=== PATIENT | female | born 1950 | race Caucasian/White ===

== ENCOUNTER 2016-07-24 20:23 | Inpatient (IN) | payer OTHER ==
[~2016-07-24] VITALS: Ht 154.9 cm; Wt 107.7 kg
[~2016-07-24 20:23] MED LIST: AMIT50TA3 PO; CLOT10TR2 MT; EFF/375 PO; GLIP-197 PO; LORA-741 PO; LYR50 PO; NYST100010 TD; PRLSR20 PO; QUET200T2 PO; SIMV20TA2 PO; SYMIN8045 INH; TORS20TA2 PO; WARF6TAB5 PO
[2016-07-24] MEDS ORDERED: OXYMETAZOLINE HCL 0.05% NA SPR 15 ML BTL ONE (20:55)
[2016-07-24] MEDS ORDERED: SODIUM CHLORIDE 0.9% 500ML 500 ML IV STA (22:14)
--- NOTE | 2016-07-24 22:40 | EMERGENCY ROOM VISIT NOTE ---
History Report prepared by Sonia: Monty Godinez Under the Supervision of: Dr. Jese Mcfadden M.D. First contact with patient: 22:12 Chief Complaint: NOSE BLEED (MINOR) Stated Complaint: NOSE BLEED, ON BLOOD THINNERS History of Present Illness The patient is a 66 year old female who presents to the Emergency Room with complaints of a persistent nosebleed beginning one day prior to arrival. She currently rates her discomfort as a 7/10 in severity. The patient states she had one nosebleed yesterday and two today. She notes her last nosebleed has lasted over two hours. The patient notes she is on the blood thinner, Jantoven. She states the nosebleed had been running down the back of her throat, with the right naris worse than the left. The patient notes she takes an 81 mg aspirin, as well. She denies vomiting. 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 A total of 10 systems reviewed and were otherwise negative. Past Medical & Surgical Medical Problems: (1) Asthma (2) Bronchitis (3) Diabetes (4) DVT (deep venous thrombosis) (5) Hypertension (6) Pneumonia (7) Pulmonary embolism Family History Cancer Diabetes mellitus Gallbladder disease Heart disease Hypertension Kidney disease Kidney stones Lung disease Social History Smoking Status: Never Smoker Alcohol Use: none Drug Use: none Marital Status: single Housing Status: lives alone Occupation Status: retired Current/Historical Medications Scheduled Amitriptyline HCl (Amitriptyline HCl), 100 MG PO HS Aspirin (Aspirin Ec), 81 MG PO DAILY Budesonide/Formoterol Fumarate (Symbicort 80/4.5 Inhaler), 2 PUFFS INH BID Calcium/Vitamin D (Os-Federico 500 Plus D), 1 TAB PO TID Carvedilol (Coreg), 12.5 MG PO BID Cyanocobalamin (Vitamin B12), 1,000 MCG PO DAILY Docusate Sodium (Docusate Sodium), 100 MG PO QID Ergocalciferol (Vitamin D Cap), 50,000 INTER.UNIT PO WK Fluvoxamine Maleate (Luvox), 100 MG PO BID Glipizide (Glipizide), 5 MG PO BID Magnesium Oxide (Mag-Ox), 400 MG PO QID Metformin HCl (Metformin HCl), 500 MG PO BIDM Omeprazole (Prilosec), 20 MG PO BID Potassium Chloride Microencaps (Potassium Chloride Er), 20 MEQ PO TID Pregabalin (Lyrica), 50 MG PO DAILY Quetiapine Fumarate (Seroquel), 600 MG PO HS Quetiapine Fumarate (Seroquel), 200 MG PO QAM Simvastatin (Simvastatin), 20 MG PO DAILY Thyroid (Nature-Throid), 65 MG PO DAILY Torsemide (Torsemide), 20 MG PO QAM Venlafaxine Hcl (Venlafaxine Extended Rel), 37.5 MG PO BID Warfarin Sod (Jantoven), 1 MG PO Q2D Warfarin Sod (Jantoven), 5 MG PO DAILY Scheduled PRN Lorazepam (Lorazepam), 0.5 MG PO TID PRN for Anxiety Oxycodone/Acetaminophen 10MG/325MG (Percocet 10MG/325MG), 1 TAB PO QID PRN for Pain [Proair HFA], 2 PUFFS INH UD PRN for SOB/Wheezing Allergies Coded Allergies: Erythromycin (Verified Adverse Reaction, Intermediate, N/V, 07/03/15) Physical Exam Vital Signs Date Time Temp Pulse Resp B/P Pulse Ox O2 Delivery O2 Flow Rate FiO2 07/24/16 23:42 116 22 110/64 95 Room Air 07/24/16 21:25 110 24 129/93 95 Room Air 07/24/16 20:27 36.9 120 20 110/71 94 Room Air Physical Exam GENERAL: Patient is in no acute distress. HEENT: Dried blood in the mouth and throat but no active bleeding. Nasal clip in place with some dried blood around the nose on the right. By exam, the left naris appears clear. There is a slight ooze in the area of the right naris and a clot noted along the anterior septum. NECK: No stridor, no adenopathy, no meningismus, trachea is midline. LUNGS: Clear to auscultation bilaterally, no wheeze, no rhonchi, breath sounds equal. HEART: Mildly tachycardic with a regular rhythm. No murmurs. ABDOMEN: Soft, nontender, bowel sounds positive, no hernias, no peritonitis. EXTREMITIES: No cyanosis or edema, full range of motion of all the joints without pain or difficulty, no signs for acute trauma. NEUROLOGIC: Oriented x 3, no acute motor or sensory deficits, no focal weakness. SKIN: No rash, no jaundice, no diaphoresis. Medical Decision & Procedures Laboratory Results Test 07/24/16 21:15 Total Bilirubin 0.2 mg/dl (0.2-1) Aspartate Amino Transf (AST/SGOT) 40 U/L (15-37) Alanine Aminotransferase (ALT/SGPT) 47 U/L (12-78) Alkaline Phosphatase 88 U/L (45-117) Total Protein 7.5 gm/dl (6.4-8.2) Albumin 3.8 gm/dl (3.4-5.0) Globulin 3.7 gm/dl (2.5-4.0) Albumin/Globulin Ratio 1.0 (0.9-2) Chemistry Specimen Hemolysis Laboratory results reviewed by me. Medications Administered Medications (Trade) Dose Ordered Sig/Natalie Route Start Time Stop Time Status Last Admin Dose Admin Oxymetazoline HCl 75 sprays 75 sprays STK-MED ONCE .ROUTE 07/24/16 20:55 07/24/16 20:56 DC 07/24/16 21:00 75 SPRAYS Sodium Chloride (Nss 500ml) 500 ml @ 999 mls/hr Q31M STAT IV 07/24/16 22:14 07/24/16 22:44 DC 07/24/16 22:47 999 MLS/HR Phytonadione (Mephyton Tab) 10 mg NOW STAT PO 07/24/16 23:27 07/24/16 23:28 DC 07/24/16 23:42 10 MG Cephalexin Monohydrate 500 mg 500 mg NOW STAT PO 07/24/16 23:35 07/24/16 23:36 DC 07/24/16 23:42 500 MG Sodium Chloride (Nss 1000ml) 1,000 ml @ 125 mls/hr Q8H STAT IV 07/24/16 23:35 07/25/16 01:37 DC 07/24/16 23:45 125 MLS/HR Procedure Anterior Nasal Packing Indication: Persistent epistaxis Verbal consent obtained. Risks and benefits were explained with the usual customary discussion. A time out was taken. Clots were removed with blowing her nose. The night naris had been prepped with Afrin earlier. An anterior 4.5 cm rhino pack was used. The patient tolerated this well. Hemostasis was achieved. No complications. ED Course 1013: The patient was evaluated in room C2B. A complete history and physical exam was performed. 2214: Ordered Sodium Chloride 500 ml @ 999 mls/hr IV. 2327: Ordered Mephyton Tab 10 mg PO. 2331: I spoke to PHAM Andrews (Hospitalist) about the patient's case, and he will follow the patient for further evaluation. 2333: Reevaluated the patient at this time, and she is not bleeding. I updated her on the treatment plan, and she verbalized complete understanding and agreement. 2335: Ordered Sodium Chloride 1,000 ml @ 125 mls/hr IV, Keflex Cap 500 mg PO. Medical Decision The differential diagnoses include but are not limited to: anterior or posterior epistaxis, anemia, coagulopathy. There is no leukocytosis or concerning anemia. The patient is over anticoagulated with an INR greater than 8. This certainly explains why it has been hard to control her epistaxis. No significant electrolyte abnormality, there are no findings to suggest hepatitis. The patient had already received Afrin sprays and nasal pressure via a nasal clip prior to my arrival in the room. When the clip was removed, the patient did attempt to rinse out her mouth and again the right side of her nose began to bleed. Pressure was applied. I spoke to the patient about options, we did place a 4.5 cm right Rhino pack and the balloon was inflated. The pack could not be completely inserted as I ran up against an obstruction, about 1 cm of the pack was still protruding from the nose. Despite the pack not being completely inserted, the patient's epistaxis seemed to resolve. The patient felt uncomfortable with the pack in place but she was able to tolerate its positioning. The patient was given oral vitamin K, she received IV saline. She was given oral Keflex to prevent any sinusitis while the pack was in place. Given the high INR value, given her difficult to control bleeding, admission/ observation was warranted. I spoke to case management, the network solutions architect hospitalist was consulted. Consults Time Called: 2328 Consulting Physician: PHAM Andrews (Hospitalist) Returned Call: [phone] I spoke to PHAM Andrews (Hospitalist) about the patient's case, and he will follow the patient for further evaluation. Impression Primary Impression: Right-sided epistaxis Additional Impression: Supratherapeutic INR Scribe Attestation The scribe's documentation has been prepared under my direction and personally reviewed by me in its entirety. I confirm that the note above accurately reflects all work, treatment, procedures, and medical decision making performed by me. Departure Information Dispostion Being Evaluated By Hospitalist (PHAM Andrews (Hospitalist)) Referrals Noni Allan M.D. (PCP) Problem Qualifiers
[2016-07-24] MEDS ORDERED: POTA20TA13 PO (22:51)
[2016-07-24] MEDS ORDERED: GLC5 PO (22:52)
[2016-07-24] MEDS ORDERED: ATV5X PO (22:52)
[2016-07-24] MEDS ORDERED: OMEP20CA9 PO (22:52)
[2016-07-24] MEDS ORDERED: LYR/50 PO (22:52)
[2016-07-24] MEDS ORDERED: WARF1TAB6 PO (22:52)
[2016-07-24] MEDS ORDERED: Proair HFA INH (22:52)
[2016-07-24] MEDS ORDERED: SIMV-151 PO (22:52)
[2016-07-24] MEDS ORDERED: GLC500 PO (22:52)
[2016-07-24] MEDS ORDERED: VENL37.593 PO (22:52)
[2016-07-24] MEDS ORDERED: AMT100 PO (22:52)
[2016-07-24] MEDS ORDERED: WARF5TAB7 PO (22:52)
[2016-07-24] MEDS ORDERED: SYMIN/8045 INH (22:52)
[2016-07-24] MEDS ORDERED: QUET1TAB10 PO ×2 (22:52)
[2016-07-24] MEDS ORDERED: CARV12.52 PO (22:54)
[2016-07-24] MEDS ORDERED: DMD20 PO (22:54)
[2016-07-24 22:55] LABS: HEMATOCRIT 39.2 % (37-47); MEAN CELL VOLUME 93.3 fL (80-100); MEAN CORPUSCULAR HEMOGLOBIN 31.9 pg (25-34); MEAN CORPUSCULAR HGB CONC 34.2 g/dl (32-36); MEAN PLATELET VOLUME 11.3 fL (7.4-10.4); PLATELET COUNT 186 K/uL (130-400); WHITE BLOOD COUNT 5.91 K/uL (4.8-10.8)
[2016-07-24] MEDS ORDERED: OXYC-106 PO (22:57)
[2016-07-24] MEDS ORDERED: CYAN100020 PO (22:58)
[2016-07-24] MEDS ORDERED: ASPI81TA28 PO (23:00)
[2016-07-24] MEDS ORDERED: FLUV100T12 PO (23:02)
[2016-07-24] MEDS ORDERED: DOCU100C31 PO (23:05)
[2016-07-24] MEDS ORDERED: MAGN400T6 PO (23:06)
[2016-07-24] MEDS ORDERED: THYR65TA11 PO (23:06)
[2016-07-24] MEDS ORDERED: CALC500C70 PO (23:08)
[2016-07-24] MEDS ORDERED: ERGO1CAP35 PO (23:10)
[2016-07-24 23:16] LABS: PARTIAL THROMBOPLASTIN RATIO 2.6; PROTHROMBIN TIME (PATIENT) > 100.0 SECONDS (9.0-12.0)
[2016-07-24 23:25] LABS: INR > 8.0 (0.9-1.1)
[2016-07-24] MEDS ORDERED: PHYTONADIONE 5 MG TAB PO STA (23:27)
[2016-07-24] MEDS ORDERED: SODIUM CHLORIDE 0.9% 1000ML 1,000 ML IV STA (23:35)
[2016-07-24] MEDS ORDERED: CEPHALEXIN MONOHYDRATE 250 MG CAP PO STA (23:35)
[2016-07-25] VITALS (7 sets, daily range): BP systolic 97–154; BP diastolic 64–92; PULSE 87–113; TEMP 36.5–36.9; O2SAT 92–97; Ht 154.9 cm; Wt 107.7 kg
[2016-07-25 00:55] LABS: ALKALINE PHOSPHATASE 88 U/L (45-117); ALT/SGPT 47 U/L (12-78); AST/SGOT 40 U/L (15-37); BLOOD UREA NITROGEN 23 mg/dl (7-18); BUN/CREATININE RATIO 17.4 (10-20); CALCIUM 9.5 mg/dl (8.5-10.1); CARBON DIOXIDE 28 mmol/L (21-32); CHLORIDE 103 mmol/L (98-107); GLUCOSE 186 mg/dl (70-99); POTASSIUM 4.3 mmol/L (3.5-5.1); SODIUM 142 mmol/L (136-145)
[2016-07-25] MEDS ORDERED: CARVEDILOL 12.5 MG TAB PO ONE (01:14)
[2016-07-25] MEDS ORDERED: FLUVOXAMINE MALEATE 50 MG TAB PO ONE (01:14)
[2016-07-25] MEDS ORDERED: AMITRIPTYLINE HCL 100 MG TAB PO ONE (01:14)
[2016-07-25] MEDS ORDERED: VENLAFAXINE HCL XR 37.5 MG CAPXR PO ONE (01:14)
[2016-07-25] MEDS ORDERED: QUETIAPINE FUMARATE 200 MG TAB PO ONE (01:14)
[2016-07-25] MEDS ORDERED: ZOLPIDEM TARTRATE 5 MG TAB PO PRN (01:15)
[2016-07-25] MEDS ORDERED: ACETAMINOPHEN 325 MG TAB PO PRN ×2 (01:15→01:30)
[2016-07-25] MEDS ORDERED: NITROGLYCERIN 0.4 MG SL PER TAB CHARGE SL PRN (01:15)
[2016-07-25] MEDS ORDERED: ALBUTEROL HFA 8 GM INHALER INH PRN (01:15)
[2016-07-25] MEDS ORDERED: PHYTONADIONE 5 MG TAB PO STA (01:23)
[2016-07-25] MEDS ORDERED: GLUCOSE 40% GEL 15 GM TUBE PO PRN (01:30)
[2016-07-25] MEDS ORDERED: GLUCAGON FOR INJ 1 MG VIAL SQ PRN (01:30)
[2016-07-25] MEDS ORDERED: DEXTROSE 50% 50 ML SYR IV PRN (01:30)
[2016-07-25] MEDS ORDERED: ONDANSETRON INJ 2 MG/ML 2 ML VIAL IV PRN (01:30)
[2016-07-25] MEDS ORDERED: GLUCOSE 10 TABS/TUBE PO PRN (01:30)
[2016-07-25] MEDS ORDERED: LEVALBUTEROL/IPRATROPIUM NEB INH PRN (01:30)
[2016-07-25] MEDS ORDERED: IPRATROPIUM BROMIDE NEB SOLN 0.02% 2.5 ML VIAL INH PRN (01:45)
[2016-07-25] MEDS ORDERED: LEVALBUTEROL 1.25MG/0.5ML NEB INH PRN (01:45)
[2016-07-25] MEDS: NSS + 20MEQ KCL 1000ML 1,000 ML IV SCH ×2 (02:00→13:58)
[2016-07-25] MEDS: OXYCODONE/ACETAMINOPHEN 10/325MG TAB PO PRN ×4 (02:04→22:46)
[2016-07-25] MEDS: LORAZEPAM 0.5 MG TAB PO PRN ×2 (02:04→16:37)
--- NOTE | 2016-07-25 03:09 | History and Physical ---
History & Physical Date & Time of Service: Jul 25, 2016 at 02:56 Chief Complaint: Right-Sided Epistaxis, Supratherapeutic Inr Primary Care Physician: Noni Allan M.D. History of Present Illness Source: patient, family The patient is a 66-year-old female who presents emergency department with complaint of a persistent nosebleed that began 1 day prior to arrival. She reports she had the first nosebleed yesterday, has had 2 today, with the last nosebleed lasting over 2 hours. She reports that she is on Jantoven, and takes aspirin 81 mg daily. Past Medical/Surgical History Medical Problems: (1) Diabetes Status: Chronic (2) DVT (deep venous thrombosis) Status: Resolved (3) Hypertension Status: Chronic (4) Pulmonary embolism Status: Resolved Family History Cancer Diabetes mellitus Gallbladder disease Heart disease Hypertension Kidney disease Kidney stones Lung disease Social History Smoking Status: Never Smoker Smokeless Tobacco Use: No Alcohol Use: none Drug Use: none Marital Status: single Occupational Status: retired Multi-Drug Resistant Organisms History of MDRO: No Allergies Coded Allergies: Erythromycin (Verified Adverse Reaction, Intermediate, N/V, 07/03/15) Home Medications Scheduled Amitriptyline HCl (Amitriptyline HCl), 100 MG PO HS Aspirin (Aspirin Ec), 81 MG PO DAILY Budesonide/Formoterol Fumarate (Symbicort 80/4.5 Inhaler), 2 PUFFS INH BID Calcium/Vitamin D (Os-Federico 500 Plus D), 1 TAB PO TID Carvedilol (Coreg), 12.5 MG PO BID Cyanocobalamin (Vitamin B12), 1,000 MCG PO DAILY Docusate Sodium (Docusate Sodium), 100 MG PO QID Ergocalciferol (Vitamin D Cap), 50,000 INTER.UNIT PO WK Fluvoxamine Maleate (Luvox), 100 MG PO BID Glipizide (Glipizide), 5 MG PO BID Magnesium Oxide (Mag-Ox), 400 MG PO QID Metformin HCl (Metformin HCl), 500 MG PO BIDM Omeprazole (Prilosec), 20 MG PO BID Potassium Chloride Microencaps (Potassium Chloride Er), 20 MEQ PO TID Pregabalin (Lyrica), 50 MG PO DAILY Quetiapine Fumarate (Seroquel), 600 MG PO HS Quetiapine Fumarate (Seroquel), 200 MG PO QAM Simvastatin (Simvastatin), 20 MG PO DAILY Thyroid (Nature-Throid), 65 MG PO DAILY Torsemide (Torsemide), 20 MG PO QAM Venlafaxine Hcl (Venlafaxine Extended Rel), 37.5 MG PO BID Warfarin Sod (Jantoven), 1 MG PO Q2D Warfarin Sod (Jantoven), 5 MG PO DAILY Scheduled PRN Lorazepam (Lorazepam), 0.5 MG PO TID PRN for Anxiety Oxycodone/Acetaminophen 10MG/325MG (Percocet 10MG/325MG), 1 TAB PO QID PRN for Pain [Proair HFA], 2 PUFFS INH UD PRN for SOB/Wheezing Review of Systems The patient denies chest pain, palpitations, shortness of breath, lower extremity swelling, vision change, hearing change, sore throat, fevers, chills, sweats, weight change, fatigue, nausea, vomiting, abdominal pain, pelvic pain, blood in urine or stool, dysuria, urinary frequency or urgency, lightheadedness , dizziness, memory loss, rash, abnormal bruising , imbalance, focal or generalized weakness, numbness or tingling in arms or legs, arthralgias or myalgias, back or neck pain, night sweats, or allergy symptoms. The review of systems is otherwise negative other than for that already noted above, and at least 10 systems have been reviewed. Physical Exam Vital Signs Date Time Temp Pulse Resp B/P Pulse Ox O2 Delivery O2 Flow Rate FiO2 07/25/16 01:00 36.7 113 16 154/92 97 Room Air 07/25/16 00:08 116 22 110/64 95 07/24/16 23:42 116 22 110/64 95 Room Air 07/24/16 21:25 110 24 129/93 95 Room Air 07/24/16 20:27 36.9 120 20 110/71 94 Room Air The patient is awake, well-developed and adequately nourished, alert and oriented 3, has a Rhino Rocket in the right naris, lying in bed and in no acute distress. HEENT--PERRL, EOMI, mucous membranes moist, and oropharynx normal. As above. Neck--supple, no JVD or bruits, thyroid normal, trachea midline, no adenopathy. Heart--normal S1 and S2, no extra beats, no murmurs, rubs or gallops. Lungs--clear bilaterally with good air movement, no respiratory distress, no accessory muscle use. Abdomen--normal bowel sounds and soft, nontender and nondistended, no hernias or masses, no organomegaly. Extremities--no cyanosis, clubbing or edema. There are good distal pulses b/l. Dermatologic--normal skin turgor, normal color, warm and dry, no abnormal lymph nodes, no rash. Neurologic--cranial nerves II through XII grossly intact. Psychiatric--normal affect. Diagnostics Laboratory Results Results Past 24 Hours Test 07/24/16 21:15 Range/Units White Blood Count 5.91 4.8-10.8 K/uL Red Blood Count 4.20 4.2-5.4 M/uL Hemoglobin 13.4 12.0-16.0 g/dL Hematocrit 39.2 37-47 % Mean Corpuscular Volume 93.3 80-100 fL Mean Corpuscular Hemoglobin 31.9 25-34 pg Mean Corpuscular Hemoglobin Concent 34.2 32-36 g/dl RDW Standard Deviation 47.0 36.4-46.3 fL RDW Coefficient of Variation 13.7 11.5-14.5 % Platelet Count 186 130-400 K/uL Mean Platelet Volume 11.3 7.4-10.4 fL Prothrombin Time > 100.0 9.0-12.0 SECONDS Prothromb Time International Ratio > 8.0 0.9-1.1 Activated Partial Thromboplast Time 66.7 21.0-31.0 SECONDS Partial Thromboplastin Ratio 2.6 Sodium Level 142 136-145 mmol/L Potassium Level 4.3 3.5-5.1 mmol/L Chloride Level 103 98-107 mmol/L Carbon Dioxide Level 28 21-32 mmol/L Anion Gap 11.0 3-11 mmol/L Blood Urea Nitrogen 23 7-18 mg/dl Creatinine 1.30 0.60-1.20 mg/dl Estimated GFR () 49.9 Estimated GFR (Non- 43.0 BUN/Creatinine Ratio 17.4 10-20 Random Glucose 186 70-99 mg/dl Calcium Level 9.5 8.5-10.1 mg/dl Total Bilirubin 0.2 0.2-1 mg/dl Aspartate Amino Transf (AST/SGOT) 40 15-37 U/L Alanine Aminotransferase (ALT/SGPT) 47 12-78 U/L Alkaline Phosphatase 88 45-117 U/L Total Protein 7.5 6.4-8.2 gm/dl Albumin 3.8 3.4-5.0 gm/dl Globulin 3.7 2.5-4.0 gm/dl Albumin/Globulin Ratio 1.0 0.9-2 Chemistry Specimen Hemolysis Impression Assessment and Plan Epistaxis, primarily right nares, status post placement of Rhino Rocket in the ED with control of bleeding. She'll be seen by ENT for more definitive therapy. Her INR is supratherapeutic and will be normalized to improve bleeding. She will be kept nothing by mouth after midnight except medications for possible procedure. Supratherapeutic INR greater than 8--the patient did receive vitamin K 10 mg by mouth in the emergency department and will receive additional dose tonight, with repeat PT/INR in the a.m. 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 Diabetes mellitus--continue glipizide 5 mg by mouth twice a day. Hold metformin 500 mg by mouth twice a day, and place on Accu-Cheks before meals and at bedtime with NovoLog coverage. Ex Psychiatry--continue amitriptyline 100 mg by mouth at bedtime, fluvoxamine 100 mg by mouth twice a day, Lyrica 50 mg by mouth daily, Seroquel 200 mg by mouth every morning and 600 mg by mouth at bedtime, and venlafaxine extended release 37.5 mg by mouth twice a day. Next Hypercholesterolemia--continue simvastatin 20 mg by mouth daily. Hypertension--continue carvedilol 12.5 mg by mouth twice a day. Hold torsemide 20 mg by mouth every morning, potassium chloride extended release 20 mEq by mouth 3 times a day, mag oxide 40 mg by mouth twice a day, and aspirin 81 mg by mouth daily. COPD continue Symbicort 80/4.5, 2 puffs twice a day, and albuterol HFA 2 puffs 4 times a day when necessary. Vitamin B-12 deficiency--continue vitamin B12 1000 g by mouth daily. Ex GERD--change omeprazole 20 mg by mouth twice a day to pantoprazole 40 mg by mouth twice a day. Hypothyroidism--she takes Nature-Throid 65 mg by mouth daily, which has no prescription equivalent. If she stays in the hospital longer than a day, she will need to bring her own supplement in. Level of Care Telemetry Advanced Directives Existing Advance Directive: No Existing Living Will: No Existing Power of Mri Technologist: No Resuscitation Status FULL RESUSCITATION VTE Prophylaxis VTE Risk Assessment Done? Y/N: Yes Risk Level: Moderate Given or contraindicated: Warfarin (Coumadin)
[2016-07-25 05:51] LABS: BASO % 0.3 %; BASO ABS # 0.02 K/uL (0-0.2); COMPLETE YES; EOS % 1.7 %; HEMATOCRIT 34.9 % (37-47); IG% 0.3 %; LYMPH % 47.6 %; LYMPH ABS # 3.14 K/uL (1.2-3.4); MEAN CELL VOLUME 92.8 fL (80-100); MEAN CORPUSCULAR HEMOGLOBIN 30.6 pg (25-34); MEAN PLATELET VOLUME 10.6 fL (7.4-10.4); MONO % 8.5 %; NEUT % 41.6 %; PLATELET COUNT 163 K/uL (130-400); RED BLOOD COUNT 3.76 M/uL (4.2-5.4)
[2016-07-25 06:15] LABS: PARTIAL THROMBOPLASTIN RATIO 2.5; PROTHROMBIN TIME (PATIENT) > 100.0 SECONDS (9.0-12.0)
[2016-07-25 06:21] LABS: INR > 8.0 (0.9-1.1)
[2016-07-25 06:28] LABS: BUN/CREATININE RATIO 24.7 (10-20); CALCIUM 8.8 mg/dl (8.5-10.1); POTASSIUM 4.3 mmol/L (3.5-5.1)
[2016-07-25] MEDS ORDERED: NURSING VERBAL MED ORDER ONE (06:30)
[2016-07-25] MEDS ORDERED: PHYTONADIONE INJ 5 MG in SODIUM CHLORIDE 0.9% 50ML 50 ML IV ONE (07:00)
[2016-07-25] MEDS: INSULIN ASPART 100 UNITS/ML 3 ML PEN SC SCH ×4 (07:00→21:21)
[2016-07-25] MEDS: FLUVOXAMINE MALEATE 50 MG TAB PO SCH ×2 (08:26→21:13)
[2016-07-25] MEDS: PANTOprazole SOD 40 MG TAB PO SCH ×2 (08:26→21:14)
[2016-07-25] MEDS: BUDESONIDE/FORMOTEROL FUMARATE 80/4.5 60 PUFFS/INHALER INH SCH ×2 (08:26→21:12)
[2016-07-25] MEDS: POTASSIUM CHLORIDE 20 MEQ TABCR PO SCH ×3 (08:27→21:12)
[2016-07-25] MEDS: VENLAFAXINE HCL XR 37.5 MG CAPXR PO SCH ×2 (08:27→21:14)
[2016-07-25] MEDS: QUETIAPINE FUMARATE 200 MG TAB PO SCH ×2 (08:27→21:11)
[2016-07-25] MEDS: CYANOCOBALAMIN 500 MCG TAB (VIT B-12) PO SCH (08:27)
[2016-07-25] MEDS: MAGNESIUM OXIDE 400 MG TAB PO SCH ×4 (08:27→21:11)
[2016-07-25] MEDS: CALCIUM 600MG + VIT D 400 IU TAB PO SCH ×3 (08:28→21:10)
[2016-07-25] MEDS: DOCUSATE SODIUM 100 MG CAP PO SCH ×4 (08:28→21:10)
[2016-07-25] MEDS: CARVEDILOL 12.5 MG TAB PO SCH ×2 (08:28→21:10)
[2016-07-25] MEDS: PREGABALIN 50 MG CAP PO SCH (08:31)
--- NOTE | 2016-07-25 09:55 | Clinical Documentation Query ---
QUERY 1 OF [address] JEFFERY, In your clinical opinion is this patient being managed for: ( ) Hemorrhagic disorder due to warfarin causing epistaxis (x ) Other explanation of clinical findings (Please Explain) - see progress notes - nosebleeds due to supratherapeutic INR due to warfarin, causing acute blood loss anemia ( ) Unable to determine (Please Define) ( ) Need to Discuss ( ) Not Agree The medical record reflects the following clinical findings, treatment, and risk factors. Clinical Indicators: 66 yo female presenting with persistent epistaxis. Pt is taking warfarin and ASA for treatment of history of DVT/PE. INR >8 Treatment: vitamin K po x 2 doses, IV fluids, anterior nasal packing, pending ENT consult, hold warfarin and ASA, monitor prothrombin time profiles Risk Factors: anticoagulant therapy QUERY 2 OF 2 In your clinical opinion is this patient being managed for: ( ) morbid obesity ( ) Other explanation of clinical findings (Please Explain) ( ) Unable to determine (Please Define) ( ) Need to Discuss ( ) Not Agree She does have morbid obesity, although it is a comorbidity contributing to her clinical situation it is not something being actively managed at this time The medical record reflects the following clinical findings, treatment, and risk factors. Clinical Indicators: Clinical record reflects pt has BMI of 44.9. There is no supporting diagnosis noted in the progress notes. Please provide the appropriate diagnosis for a patient with a BMI of 44.9 "You may capture your patient's BMI value from documentation other than the physician's, e.g. the cookie breaker, nurse, etc. However, the physician must document a correlating diagnosis in the medical Record. " Please clarify and document your clinical opinion in the progress notes and discharge summary. Terms such as "probable", "suspected", "likely", "questionable", "possible", or "still to be ruled out" are acceptable. IF IN AGREEMENT, YOU MUST DOCUMENT ABOVE DIAGNOSTIC STATEMENT IN DAILY PROGRESS NOTES AND DISCHARGE SUMMARY. This document is not part of the patient's record. Thank You, Faye Bailey RN [phone]
[2016-07-25 11:17] LABS: INR 3.3 (0.9-1.1); PROTHROMBIN TIME (PATIENT) 37.5 SECONDS (9.0-12.0)
--- NOTE | 2016-07-25 13:39 | Medical Consult ---
Consultation Date of Consultation: Jul 25, 2016. Attending Physician: Howard Judd D.O. History of Present Illness 66 yo female who presented to the ED yesterday with a supratherapeutic INR (>8) . She is on Jantoven, ASA for DVT history. ED placed a nasal balloon pack in right nostril. Patient was admitted to medicine service to correct her coagulopathy. Was having intermittent nose bleeds over the last 24 hrs. She denies any alleviating or exacerbating factors. Patient denies previous history of epistaxis. States she may have had one brief episode about a year ago. Denies any recent bouts. Past Medical/Surgical History Medical Problems: (1) Right-sided epistaxis Status: Acute (2) Supratherapeutic INR Status: Acute Family History Cancer Diabetes mellitus Gallbladder disease Heart disease Hypertension Kidney disease Kidney stones Lung disease Social History Smoking Status: Never Smoker Smokeless Tobacco Use: No Alcohol Use: none Drug Use: none Marital Status: single Housing Status: lives alone Occupation Status: retired Allergies Coded Allergies: Erythromycin (Verified Adverse Reaction, Intermediate, N/V, 07/03/15) Current Inpatient Medications Current Inpatient Medications Medications (Trade) Dose Ordered Sig/Natalie Route Start Time Stop Time Status Last Admin Dose Admin Potassium Chloride/Sodium Chloride (Nss + 20meq KCl 1000ml) 1,000 ml @ 100 mls/hr Q10H IV 07/25/16 01:30 08/24/16 01:29 07/25/16 02:00 100 MLS/HR Zolpidem Tartrate (Ambien Tab) 5 mg HSZ PRN PO 07/25/16 01:15 08/24/16 01:14 Nitroglycerin (Nitrostat Tab) 0.4 mg UD PRN SL 07/25/16 01:15 08/24/16 01:14 Amitriptyline HCl (Elavil Tab) 100 mg HS PO 07/25/16 21:00 08/24/16 20:59 Budesonide/ Formoterol Fumarate (Symbicort 80/ 4.5 Inh) 2 puffs BID INH 07/25/16 09:00 08/24/16 08:59 07/25/16 08:26 2 PUFFS Calcium/Vitamin D (Caltrate Plus Tab) 1 tab TID PO 07/25/16 09:00 08/24/16 08:59 07/25/16 08:28 1 TAB Carvedilol (Coreg Tab) 12.5 mg BID PO 07/25/16 09:00 08/24/16 08:59 07/25/16 08:28 12.5 MG Docusate Sodium (coLACE CAP) 100 mg QID PO 07/25/16 09:00 08/24/16 08:59 07/25/16 08:28 100 MG Fluvoxamine Maleate (Luvox Tab) 100 mg BID PO 07/25/16 09:00 08/24/16 08:59 07/25/16 08:26 100 MG Glipizide (Glucotrol Tab) 5 mg BIDM PO 07/25/16 07:30 08/24/16 07:29 Lorazepam (Ativan Tab) 0.5 mg TID PRN PO 07/25/16 01:15 08/24/16 01:14 07/25/16 02:04 0.5 MG Magnesium Oxide (Mag-Ox Tab) 400 mg QID PO 07/25/16 09:00 08/24/16 08:59 07/25/16 08:27 400 MG Oxycodone/ Acetaminophen (Percocet 10-325MG Tab) 1 tab QID PRN PO 07/25/16 01:15 08/08/16 01:14 07/25/16 02:04 1 TAB Potassium Chloride (Klor-Con Tab) 20 meq TID PO 07/25/16 09:00 08/24/16 08:59 07/25/16 08:27 20 MEQ Pregabalin (Lyrica Cap) 50 mg DAILY PO 07/25/16 09:00 08/24/16 08:59 07/25/16 08:31 50 MG Quetiapine Fumarate (seroQUEL TAB) 200 mg QAM PO 07/25/16 09:00 08/24/16 08:59 07/25/16 08:27 200 MG Quetiapine Fumarate (seroQUEL TAB) 600 mg HS PO 07/25/16 21:00 08/24/16 20:59 Simvastatin (Zocor Tab) 20 mg PM PO 07/25/16 21:00 08/24/16 20:59 Venlafaxine HCl (effeXOR EXTENDED REL CAP) 37.5 mg BID PO 07/25/16 09:00 08/24/16 08:59 07/25/16 08:27 37.5 MG Cyanocobalamin (Vitamin B-12 Tab) 1,000 mcg QAM PO 07/25/16 09:00 08/24/16 08:59 07/25/16 08:27 1,000 MCG Pantoprazole Sodium (Protonix Tab) 40 mg BID PO 07/25/16 09:00 08/24/16 08:59 07/25/16 08:26 40 MG Albuterol (Ventolin Hfa Inhaler) 2 puffs QID PRN INH 07/25/16 01:15 08/24/16 01:14 Ondansetron HCl (Zofran Inj) 4 mg Q6H PRN IV 07/25/16 01:30 08/24/16 01:29 Acetaminophen (Tylenol Tab) 650 mg Q4H PRN PO 07/25/16 01:30 08/24/16 01:29 Insulin Aspart (novoLOG ASPART) SLIDING SCALE If C... ACHS SC 07/25/16 07:00 08/24/16 06:59 Glucose (Glucose 40% Gel) UD PRN PO 07/25/16 01:30 08/24/16 01:29 Glucose (Glucose Chew Tab) 1 tabs UD PRN PO 07/25/16 01:30 08/24/16 01:29 Dextrose (Dextrose 50% 50ML Syringe) 50 ml UD PRN IV 07/25/16 01:30 08/24/16 01:29 Glucagon (Glucagon Inj) 1 mg UD PRN SQ 07/25/16 01:30 08/24/16 01:29 Ipratropium [place] (Atrovent 0.02% 0.5MG/2.5ML Neb) 0.5 mg Q2H PRN INH 07/25/16 01:45 08/24/16 01:44 Levalbuterol (Xopenex 1.25MG/ 0.5ML Neb) 1.25 mg Q2H PRN INH 07/25/16 01:45 08/24/16 01:44 Review of Systems Constitutional: No chills, No fatigue, No fever, No problem reported, No sweats , No weakness, No weight loss Eyes: No diplopia, No discharge, No eye pain, No problem reported, No redness, No worsening of vision ENT: + problem reported (see HPI) Respiratory: No cough, No dyspnea at rest, No dyspnea on exertion, No hemoptysis, No problem reported, No shortness of breath, No sputum, No wheezing Cardiovascular: No PND, No chest pain, No claudication, No edema, No orthopnea , No palpitations, No problem reported Abdomen: No GI bleeding, No constipation, No diarrhea, No nausea, No pain, No problem reported, No vomiting Musculoskeletal: No calf pain, No joint pain, No muscle pain, No problem reported, No swelling Neurologic: No balance problems, No memory loss, No numbness/tingling, No paralysis, No problem reported, No vertigo, No weakness Physical Exam Date Time Temp Pulse Resp B/P Pulse Ox O2 Delivery O2 Flow Rate FiO2 07/25/16 12:00 Room Air 07/25/16 11:47 36.9 87 20 97/64 93 Room Air 07/25/16 08:00 Room Air 07/25/16 07:41 36.7 89 16 110/75 92 Room Air 07/25/16 04:20 92 Room Air 07/25/16 04:04 36.6 94 20 125/75 92 Room Air 07/25/16 01:00 36.7 113 16 154/92 97 Room Air 07/25/16 00:08 116 22 110/64 95 07/24/16 23:42 116 22 110/64 95 Room Air 07/24/16 21:25 110 24 129/93 95 Room Air 07/24/16 20:27 36.9 120 20 110/71 94 Room Air General Appearance: WD/WN, no apparent distress Head: normocephalic, atraumatic Eyes: normal inspection, EOMI ENT: + pertinent finding Neck: supple, no adenopathy Respiratory/Chest: no respiratory distress, no accessory muscle use Cardiovascular: no edema, no JVD Neurologic/Psych: alert, normal mood/affect Skin: normal color, warm/dry Laboratory Results Last 24 Hours Test 07/24/16 21:15 07/25/16 05:35 07/25/16 06:34 07/25/16 10:59 White Blood Count 5.91 K/uL 6.60 K/uL Red Blood Count 4.20 M/uL 3.76 M/uL Hemoglobin 13.4 g/dL 11.5 g/dL Hematocrit 39.2 % 34.9 % Mean Corpuscular Volume 93.3 fL 92.8 fL Mean Corpuscular Hemoglobin 31.9 pg 30.6 pg Mean Corpuscular Hemoglobin Concent 34.2 g/dl 33.0 g/dl RDW Standard Deviation 47.0 fL 46.4 fL RDW Coefficient of Variation 13.7 % 13.7 % Platelet Count 186 K/uL 163 K/uL Mean Platelet Volume 11.3 fL 10.6 fL Prothrombin Time > 100.0 SECONDS > 100.0 SECONDS Prothromb Time International Ratio > 8.0 > 8.0 Activated Partial Thromboplast Time 66.7 SECONDS 64.6 SECONDS Partial Thromboplastin Ratio 2.6 2.5 Sodium Level 142 mmol/L 141 mmol/L Potassium Level 4.3 mmol/L 4.3 mmol/L Chloride Level 103 mmol/L 104 mmol/L Carbon Dioxide Level 28 mmol/L 26 mmol/L Anion Gap 11.0 mmol/L 11.0 mmol/L Blood Urea Nitrogen 23 mg/dl 25 mg/dl Creatinine 1.30 mg/dl 1.00 mg/dl Estimated GFR () 49.9 68.5 Estimated GFR (Non- 43.0 59.1 BUN/Creatinine Ratio 17.4 24.7 Random Glucose 186 mg/dl 130 mg/dl Calcium Level 9.5 mg/dl 8.8 mg/dl Total Bilirubin 0.2 mg/dl Aspartate Amino Transf (AST/SGOT) 40 U/L Alanine Aminotransferase (ALT/SGPT) 47 U/L Alkaline Phosphatase 88 U/L Total Protein 7.5 gm/dl Albumin 3.8 gm/dl Globulin 3.7 gm/dl Albumin/Globulin Ratio 1.0 Chemistry Specimen Hemolysis Neutrophils (%) (Auto) 41.6 % Lymphocytes (%) (Auto) 47.6 % Monocytes (%) (Auto) 8.5 % Eosinophils (%) (Auto) 1.7 % Basophils (%) (Auto) 0.3 % Neutrophils # (Auto) 2.75 K/uL Lymphocytes # (Auto) 3.14 K/uL Monocytes # (Auto) 0.56 K/uL Eosinophils # (Auto) 0.11 K/uL Basophils # (Auto) 0.02 K/uL Immature Granulocyte % (Auto) 0.3 % Immature Granulocyte # (Auto) 0.02 K/uL Est Creatinine Clear Calc Drug Dose 63.5 ml/min Magnesium Level 2.0 mg/dl Hepatitis C Antibody Screen NEG Bedside Glucose 123 mg/dl 138 mg/dl Test 07/25/16 11:00 Prothrombin Time 37.5 SECONDS Prothromb Time International Ratio 3.3 Assessment & Plan Assessment 66 yo female with supratherapeutic INR, resultant epistaxis - INR down to 3 with Vitamin K correction - if medically allowable would keep her off anticoagulation until packing removed - balloon pack needs to remain in place for at a minimum of 5 days due to her anticoagulation status - will plan for removal on Friday - if patient is discharged prior to Friday, would ask admitting service please call office at [phone] to schedule appointment for patient on friday in my office for packing removal - recommend patient stay on antibiotic for 7 days
--- NOTE | 2016-07-25 15:42 | Progress Note ---
Subjective Date of Service: Jul 25, 2016. Subjective Pt evaluation today including: conversation w/ patient, physical exam, chart review, lab review, review of inpatient medication list feeling better no further nosebleeds. INR > 8 - she relates that her daughter takes care of sorting out her pills except for her coumadin - which she keeps in her purse, alternates 5mg and 6mg relates taht she sometimes forgets a dose, doesn't think that she ever accidentally doubles up has had multiple clotting events through her life, first ~40yrs ago but while she can't relate the most recent as far as when it occurred, she does seem to relate relatively recently, but does not recall new clots, or having been hospitalized for clots, or having dopplers done, in the last year. notes over and over being tired of coumadin and having ot be on it and having to get bloodwork done and having levels all over the place, but notes taht she' s thought about NOAC before but is a little afraid mostly because without following labs she's afraid that her blood would be too thick. Problem List Medical Problems: (1) Right-sided epistaxis Status: Acute (2) Supratherapeutic INR Status: Acute Review of Systems ENT: + see HPI ros otherwise negative except for as above Objective Vital Signs Date Time Temp Pulse Resp B/P Pulse Ox O2 Delivery O2 Flow Rate FiO2 07/25/16 12:00 Room Air 07/25/16 11:47 36.9 87 20 97/64 93 Room Air 07/25/16 08:00 Room Air 07/25/16 07:41 36.7 89 16 110/75 92 Room Air 07/25/16 04:20 92 Room Air 07/25/16 04:04 36.6 94 20 125/75 92 Room Air 07/25/16 01:00 36.7 113 16 154/92 97 Room Air 07/25/16 00:08 116 22 110/64 95 07/24/16 23:42 116 22 110/64 95 Room Air 07/24/16 21:25 110 24 129/93 95 Room Air 07/24/16 20:27 36.9 120 20 110/71 94 Room Air Physical Exam General Appearance: no apparent distress Eyes: EOMI ENT: hearing grossly normal, + pertinent finding (R nare packed, dried blood but no oozing no active bleeding evident) Neck: trachea midline Respiratory/Chest: no respiratory distress, no accessory muscle use Extremities: normal range of motion Neurologic/Psychiatric: patient access representative II-XII nml as tested, alert Skin: normal color, warm/dry Laboratory Results Last 24 Hours Test 07/24/16 21:15 07/25/16 05:35 07/25/16 06:34 07/25/16 10:59 White Blood Count 5.91 K/uL 6.60 K/uL Red Blood Count 4.20 M/uL 3.76 M/uL Hemoglobin 13.4 g/dL 11.5 g/dL Hematocrit 39.2 % 34.9 % Mean Corpuscular Volume 93.3 fL 92.8 fL Mean Corpuscular Hemoglobin 31.9 pg 30.6 pg Mean Corpuscular Hemoglobin Concent 34.2 g/dl 33.0 g/dl RDW Standard Deviation 47.0 fL 46.4 fL RDW Coefficient of Variation 13.7 % 13.7 % Platelet Count 186 K/uL 163 K/uL Mean Platelet Volume 11.3 fL 10.6 fL Prothrombin Time > 100.0 SECONDS > 100.0 SECONDS Prothromb Time International Ratio > 8.0 > 8.0 Activated Partial Thromboplast Time 66.7 SECONDS 64.6 SECONDS Partial Thromboplastin Ratio 2.6 2.5 Sodium Level 142 mmol/L 141 mmol/L Potassium Level 4.3 mmol/L 4.3 mmol/L Chloride Level 103 mmol/L 104 mmol/L Carbon Dioxide Level 28 mmol/L 26 mmol/L Anion Gap 11.0 mmol/L 11.0 mmol/L Blood Urea Nitrogen 23 mg/dl 25 mg/dl Creatinine 1.30 mg/dl 1.00 mg/dl Estimated GFR () 49.9 68.5 Estimated GFR (Non- 43.0 59.1 BUN/Creatinine Ratio 17.4 24.7 Random Glucose 186 mg/dl 130 mg/dl Calcium Level 9.5 mg/dl 8.8 mg/dl Total Bilirubin 0.2 mg/dl Aspartate Amino Transf (AST/SGOT) 40 U/L Alanine Aminotransferase (ALT/SGPT) 47 U/L Alkaline Phosphatase 88 U/L Total Protein 7.5 gm/dl Albumin 3.8 gm/dl Globulin 3.7 gm/dl Albumin/Globulin Ratio 1.0 Chemistry Specimen Hemolysis Neutrophils (%) (Auto) 41.6 % Lymphocytes (%) (Auto) 47.6 % Monocytes (%) (Auto) 8.5 % Eosinophils (%) (Auto) 1.7 % Basophils (%) (Auto) 0.3 % Neutrophils # (Auto) 2.75 K/uL Lymphocytes # (Auto) 3.14 K/uL Monocytes # (Auto) 0.56 K/uL Eosinophils # (Auto) 0.11 K/uL Basophils # (Auto) 0.02 K/uL Immature Granulocyte % (Auto) 0.3 % Immature Granulocyte # (Auto) 0.02 K/uL Est Creatinine Clear Calc Drug Dose 63.5 ml/min Magnesium Level 2.0 mg/dl Hepatitis C Antibody Screen NEG Bedside Glucose 123 mg/dl 138 mg/dl Test 07/25/16 11:00 Prothrombin Time 37.5 SECONDS Prothromb Time International Ratio 3.3 Assessment and Plan Epistaxis -- stabilized after reversal of coumadin and packing of nare. ENT note reviewed; given risks/benefits and the fact that she relates being a re-re- recurrent clotter with a high anxiety about future clotting events, does not appear entirely safe to leave off anticoagulation until packing removed. will try to attain more tight control - see below- but as long as no bleeding then risks being off anticoagulation appear to outweigh the benefits acute blood loss anemia - due to above. hemodynamically stable, bleeding appears to have stopped Supratherapeutic INR greater than 8--no abx, no change in diet she can recall, no major changing in dosing she can recall. ?adherence issues - while she denies doubling up on dosing, she does admit to missing dosing, and while the rest of her meds are all in a pill counter set out by her dtr, she keeps her coumadin in her purse - raising the chances of accidental error quite significantly. DVT/PE--requires lifelong anticoagulation - per her hx she is very high risk for recurrent clotting. most recent INR is 3.3 --- since bleeding has stopped in therapeutic range - will try to keep at therapeutic (rather than supratherapeutic) ranges. discussed resuming coumadin vs NOAC extensively w pt. discussed risks/benefits of both approaches, as well as data and my experiences with pts on both types of anticoagulation. she initially was unsure so we were going to carry on with coumadin - but after consideration she had me paged to inform me she opted to transfer over to xarelto. will wait until INR < 3 then initiate 20mg daily. with her high risk for clotting, will repeat an INR tonight and if <3 will start; if >3 will repeat in AM and then initiate. once xarelto started, since she's had nosebleeds, and to avoid having her "doubly" anticoagulated - will then give additional vitamin K Diabetes mellitus--continue glipizide 5 mg by mouth twice a day. Hold metformin 500 mg by mouth twice a day, and place on Accu-Cheks before meals and at bedtime with NovoLog coverage. sugars have been reasonable Psychiatry--continue amitriptyline 100 mg by mouth at bedtime, fluvoxamine 100 mg by mouth twice a day, Lyrica 50 mg by mouth daily, Seroquel 200 mg by mouth every morning and 600 mg by mouth at bedtime, and venlafaxine extended release 37.5 mg by mouth twice a day. Hypercholesterolemia--continue simvastatin 20 mg by mouth daily. Hypertension--continue carvedilol 12.5 mg by mouth twice a day. Hold torsemide COPD continue Symbicort 80/4.5, 2 puffs twice a day, and albuterol HFA 2 puffs 4 times a day when necessary. Vitamin B-12 deficiency--continue vitamin B12 1000 g by mouth daily. GERD--change omeprazole 20 mg by mouth twice a day to pantoprazole 40 mg by mouth twice a day. Hypothyroidism--she takes Nature-Throid 65 mg by mouth daily, which has no prescription equivalent. will need to take from home CAD risks/asa therapy - asa on hold for now. given that she has not had a vascular event she is aware of, we can hold the aspirin until packing is removed. stable for med surg, hopefully home tomorrow
[2016-07-25] MEDS ORDERED: WARFARIN SOD 2 MG TAB PO SCH (16:00)
[2016-07-25] MEDS: CEPHALEXIN MONOHYDRATE 500 MG CAP PO SCH ×2 (17:03→21:09)
[2016-07-25 17:17] LABS: INR 1.8 (0.9-1.1); PROTHROMBIN TIME (PATIENT) 20.1 SECONDS (9.0-12.0)
[2016-07-25] MEDS: RIVAROXABAN 10 MG TAB PO SCH (21:09)
[2016-07-25] MEDS: AMITRIPTYLINE HCL 100 MG TAB PO SCH (21:11)
[2016-07-25] MEDS: SIMVASTATIN 20 MG TAB PO SCH (21:14)
[2016-07-26 00:01] VITALS: BP 100/63; PULSE 88; TEMP 36.6; O2SAT 95
[2016-07-26 07:20] LABS: BASO % 0.4 %; BASO ABS # 0.02 K/uL (0-0.2); COMPLETE YES; EOS % 2.1 %; HEMATOCRIT 33.8 % (37-47); IG% 0.6 %; LYMPH % 47.7 %; LYMPH ABS # 2.54 K/uL (1.2-3.4); MEAN CELL VOLUME 93.1 fL (80-100); MEAN CORPUSCULAR HEMOGLOBIN 30.9 pg (25-34); MEAN CORPUSCULAR HGB CONC 33.1 g/dl (32-36); MEAN PLATELET VOLUME 10.6 fL (7.4-10.4); MONO % 9.8 %; NEUT % 39.4 %; PLATELET COUNT 163 K/uL (130-400); RED BLOOD COUNT 3.63 M/uL (4.2-5.4); WHITE BLOOD COUNT 5.33 K/uL (4.8-10.8)
[2016-07-26 07:25] LABS: INR 1.8 (0.9-1.1); PARTIAL THROMBOPLASTIN RATIO 1.5; PROTHROMBIN TIME (PATIENT) 19.4 SECONDS (9.0-12.0)
[2016-07-26 07:31] VITALS: BP 116/72; PULSE 88; TEMP 36.6; O2SAT 91
[2016-07-26] MEDS: PANTOprazole SOD 40 MG TAB PO SCH ×2 (07:44→19:30)
[2016-07-26] MEDS: DOCUSATE SODIUM 100 MG CAP PO SCH ×4 (07:44→19:30)
[2016-07-26] MEDS: VENLAFAXINE HCL XR 37.5 MG CAPXR PO SCH ×2 (07:44→19:29)
[2016-07-26] MEDS: FLUVOXAMINE MALEATE 50 MG TAB PO SCH ×2 (07:44→19:30)
[2016-07-26] MEDS: POTASSIUM CHLORIDE 20 MEQ TABCR PO SCH ×3 (07:45→19:29)
[2016-07-26] MEDS: MAGNESIUM OXIDE 400 MG TAB PO SCH ×4 (07:45→19:30)
[2016-07-26] MEDS: QUETIAPINE FUMARATE 200 MG TAB PO SCH ×2 (07:45→19:29)
[2016-07-26] MEDS: CEPHALEXIN MONOHYDRATE 500 MG CAP PO SCH ×4 (07:46→19:30)
[2016-07-26] MEDS: CALCIUM 600MG + VIT D 400 IU TAB PO SCH ×3 (07:46→19:30)
[2016-07-26] MEDS: CYANOCOBALAMIN 500 MCG TAB (VIT B-12) PO SCH (07:46)
[2016-07-26] MEDS: CARVEDILOL 12.5 MG TAB PO SCH ×2 (07:46→19:30)
[2016-07-26] MEDS: BUDESONIDE/FORMOTEROL FUMARATE 80/4.5 60 PUFFS/INHALER INH SCH ×2 (07:49→19:29)
[2016-07-26] MEDS: PREGABALIN 50 MG CAP PO SCH (07:51)
[2016-07-26 07:57] LABS: BUN/CREATININE RATIO 17.8 (10-20); CALCIUM 8.8 mg/dl (8.5-10.1); CREATININE 1.1 mg/dl (0.60-1.20); MAGNESIUM 2.4 mg/dl (1.8-2.4)
[2016-07-26] MEDS ORDERED: PHYTONADIONE 5 MG TAB PO STA (08:21)
[2016-07-26] MEDS: INSULIN ASPART 100 UNITS/ML 3 ML PEN SC SCH ×4 (08:46→20:36)
[2016-07-26] MEDS: OXYCODONE/ACETAMINOPHEN 10/325MG TAB PO PRN ×2 (08:51→15:03)
[2016-07-26 15:40] VITALS: BP 155/84; PULSE 94; TEMP 36.5; O2SAT 95
--- NOTE | 2016-07-26 16:20 | Progress Note ---
Subjective Date of Service: Jul 26, 2016. Subjective Pt evaluation today including: conversation w/ patient, physical exam, chart review, lab review, review of inpatient medication list no further bleeding. tolerated sunni leonard feels weak - hasn't tried to do much. repeatedly expresses concern about not wanting to go home and then just come right back and be readmitted, but also refuses to really acknowledge that her lack of activity and weakness may be the biggest risk of this happening, and also does not want to go anywhere for therapy. weakness appears to be acute on chronic - she notes she really doesn't get up much at home either. Problem List Medical Problems: (1) Right-sided epistaxis Status: Acute (2) Supratherapeutic INR Status: Acute Review of Systems Constitutional: + weakness ENT: + problem reported (does have some face pain on side of packing), No unusual epistaxis ros otherwise negative except for as above Objective Vital Signs Date Time Temp Pulse Resp B/P Pulse Ox O2 Delivery O2 Flow Rate FiO2 07/26/16 16:02 Room Air 07/26/16 15:40 36.5 94 20 155/84 95 Room Air 07/26/16 08:00 Room Air 07/26/16 07:31 36.6 88 18 116/72 91 Room Air 07/26/16 00:01 36.6 88 18 100/63 95 Room Air 07/26/16 00:00 Room Air 07/25/16 20:00 Room Air 07/25/16 16:30 36.5 95 18 138/84 92 Room Air Physical Exam General Appearance: no apparent distress Eyes: EOMI ENT: hearing grossly normal, + pertinent finding (R nare packed, crusted blood but no fresh blood no oozing) Neck: trachea midline Respiratory/Chest: no respiratory distress, no accessory muscle use Extremities: normal range of motion Neurologic/Psychiatric: varnish remover II-XII nml as tested, alert, normal mood/affect Laboratory Results Last 24 Hours Test 07/25/16 17:03 07/25/16 20:27 07/26/16 06:29 07/26/16 07:55 Prothrombin Time 20.1 SECONDS 19.4 SECONDS Prothromb Time International Ratio 1.8 1.8 Bedside Glucose 121 mg/dl 133 mg/dl White Blood Count 5.33 K/uL Red Blood Count 3.63 M/uL Hemoglobin 11.2 g/dL Hematocrit 33.8 % Mean Corpuscular Volume 93.1 fL Mean Corpuscular Hemoglobin 30.9 pg Mean Corpuscular Hemoglobin Concent 33.1 g/dl Platelet Count 163 K/uL Mean Platelet Volume 10.6 fL Neutrophils (%) (Auto) 39.4 % Lymphocytes (%) (Auto) 47.7 % Monocytes (%) (Auto) 9.8 % Eosinophils (%) (Auto) 2.1 % Basophils (%) (Auto) 0.4 % Neutrophils # (Auto) 2.11 K/uL Lymphocytes # (Auto) 2.54 K/uL Monocytes # (Auto) 0.52 K/uL Eosinophils # (Auto) 0.11 K/uL Basophils # (Auto) 0.02 K/uL RDW Standard Deviation 47.3 fL RDW Coefficient of Variation 13.8 % Immature Granulocyte % (Auto) 0.6 % Immature Granulocyte # (Auto) 0.03 K/uL Activated Partial Thromboplast Time 38.9 SECONDS Partial Thromboplastin Ratio 1.5 Sodium Level 141 mmol/L Potassium Level 5.0 mmol/L Chloride Level 105 mmol/L Carbon Dioxide Level 29 mmol/L Anion Gap 7.0 mmol/L Blood Urea Nitrogen 20 mg/dl Creatinine 1.10 mg/dl Est Creatinine Clear Calc Drug Dose 57.7 ml/min Estimated GFR () 61.0 Estimated GFR (Non- 52.6 BUN/Creatinine Ratio 17.8 Random Glucose 137 mg/dl Calcium Level 8.8 mg/dl Magnesium Level 2.4 mg/dl Test 07/26/16 11:59 Bedside Glucose 175 mg/dl Assessment and Plan Epistaxis (related to hypercoagulability from coumadin) -- stabilized after reversal of coumadin and packing of nare. given risks/benefits and the fact that she relates being a [id number]-yc-cotbdurcb clotter with a high anxiety about future clotting events, does not appear entirely safe to leave off anticoagulation until packing removed. is tolerating xarelto well. acute blood loss anemia - due to above. hemodynamically stable, bleeding appears to have stopped Supratherapeutic INR greater than 8--no abx, no change in diet she can recall, no major changing in dosing she can recall. ?adherence issues - while she denies doubling up on dosing, she does admit to missing dosing, and while the rest of her meds are all in a pill counter set out by her dtr, she keeps her coumadin in her purse - raising the chances of accidental error quite significantly. after extensive discussions of risks/benefits of different approaches, yesterday she opted for xarelto. since this affects different clotting pathways, and INR still was 1.8 this AM - gave additional vitamin K. DVT/PE--requires lifelong anticoagulation - per her hx she is very high risk for recurrent clotting. on xarelto now. tolerating well. as above noted, due to her high risk and repeated clotting, not safe to be off anticoagulation until friday, unless bleeding recurs. her risk appears significantly amplified by her willful immobility. Diabetes mellitus--continue glipizide 5 mg by mouth twice a day. Holding metformin 500 mg by mouth twice a day, and place on Accu-Cheks before meals and at bedtime with NovoLog coverage. sugars have been reasonable weakness/deconditioning - see HPI. appearing to be acute on chronic. she doesn 't really want to do anything to get stronger, definitely does not want placement for rehab efforts, but repeatedly expresses concern on being readmitted if she goes home. PT input pending, OT input noted. Psychiatry--continue amitriptyline 100 mg by mouth at bedtime, fluvoxamine 100 mg by mouth twice a day, Lyrica 50 mg by mouth daily, Seroquel 200 mg by mouth every morning and 600 mg by mouth at bedtime, and venlafaxine extended release 37.5 mg by mouth twice a day. Hypercholesterolemia--continue simvastatin 20 mg by mouth daily. Hypertension--continue carvedilol 12.5 mg by mouth twice a day. Hold torsemide COPD continue Symbicort 80/4.5, 2 puffs twice a day, and albuterol HFA 2 puffs 4 times a day when necessary. Vitamin B-12 deficiency--continue vitamin B12 1000 g by mouth daily. GERD--change omeprazole 20 mg by mouth twice a day to pantoprazole 40 mg by mouth twice a day. Hypothyroidism--she takes Nature-Throid 65 mg by mouth daily, which has no prescription equivalent. will need to take from home CAD risks/asa therapy - asa on hold for now. given that she has not had a vascular event she is aware of, we can hold the aspirin until packing is removed.
[2016-07-26 19:21] VITALS: BP 116/67; PULSE 106
[2016-07-26] MEDS: RIVAROXABAN 10 MG TAB PO SCH (19:29)
[2016-07-26] MEDS: AMITRIPTYLINE HCL 100 MG TAB PO SCH (19:29)
[2016-07-26] MEDS: SIMVASTATIN 20 MG TAB PO SCH (19:30)
[2016-07-26 23:18] VITALS: BP 118/80; PULSE 102; TEMP 36.5; O2SAT 91
[2016-07-27] MEDS: OXYCODONE/ACETAMINOPHEN 10/325MG TAB PO PRN ×2 (00:54→11:30)
[2016-07-27] MEDS: LORAZEPAM 0.5 MG TAB PO PRN ×2 (00:54→11:30)
[2016-07-27 07:27] VITALS: BP 132/85; PULSE 91; TEMP 36.6; O2SAT 92
[2016-07-27 07:38] LABS: BASO % 0.6 %; BASO ABS # 0.03 K/uL (0-0.2); COMPLETE YES; EOS % 2.1 %; HEMATOCRIT 32.3 % (37-47); IG% 0.8 %; LYMPH % 44.2 %; LYMPH ABS # 2.31 K/uL (1.2-3.4); MEAN CELL VOLUME 94.7 fL (80-100); MEAN CORPUSCULAR HEMOGLOBIN 31.1 pg (25-34); MEAN CORPUSCULAR HGB CONC 32.8 g/dl (32-36); MEAN PLATELET VOLUME 10.7 fL (7.4-10.4); MONO % 10.1 %; NEUT % 42.2 %; PLATELET COUNT 150 K/uL (130-400); RED BLOOD COUNT 3.41 M/uL (4.2-5.4); WHITE BLOOD COUNT 5.23 K/uL (4.8-10.8)
[2016-07-27 07:46] LABS: PARTIAL THROMBOPLASTIN RATIO 1.4
[2016-07-27 08:00] VITALS: O2SAT 92
[2016-07-27] MEDS: CYANOCOBALAMIN 500 MCG TAB (VIT B-12) PO SCH (08:08)
[2016-07-27] MEDS: BUDESONIDE/FORMOTEROL FUMARATE 80/4.5 60 PUFFS/INHALER INH SCH ×2 (08:08→20:03)
[2016-07-27] MEDS: QUETIAPINE FUMARATE 200 MG TAB PO SCH ×2 (08:09→20:00)
[2016-07-27] MEDS: PANTOprazole SOD 40 MG TAB PO SCH ×2 (08:09→20:41)
[2016-07-27] MEDS: MAGNESIUM OXIDE 400 MG TAB PO SCH ×4 (08:09→20:02)
[2016-07-27] MEDS: DOCUSATE SODIUM 100 MG CAP PO SCH ×4 (08:10→20:02)
[2016-07-27] MEDS: PREGABALIN 50 MG CAP PO SCH (08:10)
[2016-07-27] MEDS: POTASSIUM CHLORIDE 20 MEQ TABCR PO SCH ×3 (08:10→20:02)
[2016-07-27] MEDS: FLUVOXAMINE MALEATE 50 MG TAB PO SCH ×2 (08:10→20:01)
[2016-07-27 08:11] LABS: BUN/CREATININE RATIO 18.4 (10-20); CALCIUM 8.4 mg/dl (8.5-10.1); CREATININE 0.87 mg/dl (0.60-1.20); MAGNESIUM 2.4 mg/dl (1.8-2.4); POTASSIUM 4.3 mmol/L (3.5-5.1)
[2016-07-27] MEDS: VENLAFAXINE HCL XR 37.5 MG CAPXR PO SCH ×2 (08:11→20:01)
[2016-07-27] MEDS: CARVEDILOL 12.5 MG TAB PO SCH ×2 (08:11→20:02)
[2016-07-27] MEDS: CEPHALEXIN MONOHYDRATE 500 MG CAP PO SCH ×4 (08:11→20:00)
[2016-07-27] MEDS: CALCIUM 600MG + VIT D 400 IU TAB PO SCH ×3 (08:11→20:02)
[2016-07-27] MEDS: INSULIN ASPART 100 UNITS/ML 3 ML PEN SC SCH ×4 (08:41→20:42)
[2016-07-27 15:17] VITALS: BP 109/74; PULSE 96; TEMP 36.8; O2SAT 92
[2016-07-27 16:00] VITALS: O2SAT 92
--- NOTE | 2016-07-27 16:15 | Progress Note ---
Subjective Date of Service: Jul 27, 2016. Subjective Pt evaluation today including: conversation w/ patient, physical exam, chart review, lab review, review of inpatient medication list feeling about the same- weak and tired. no nosebleeds. when discussing rehab she re-mentions the bruising on her legs and lump that she believes to be bruising --- when redirecting back to her degree of weakness, she finally admits that she has been trying to distract the conversation to avoid talking about having to do rehab, but is amenable. d/w case management. Problem List Medical Problems: (1) Right-sided epistaxis Status: Acute (2) Supratherapeutic INR Status: Acute Review of Systems Constitutional: + weakness ENT: No unusual epistaxis ros otherwise negative except for as above Objective Vital Signs Date Time Temp Pulse Resp B/P Pulse Ox O2 Delivery O2 Flow Rate FiO2 07/27/16 15:17 36.8 96 18 109/74 92 Room Air 07/27/16 08:00 92 Room Air 07/27/16 07:27 36.6 91 20 132/85 92 Room Air 07/27/16 00:01 Room Air 07/26/16 23:18 36.5 102 18 118/80 91 Room Air 07/26/16 19:45 Room Air 07/26/16 19:21 106 116/67 Physical Exam General Appearance: no apparent distress Eyes: EOMI ENT: hearing grossly normal, + pertinent finding (R nare packed, no oozing) Neck: trachea midline Respiratory/Chest: no respiratory distress, no accessory muscle use Extremities: normal range of motion 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, alert, normal mood/affect Skin: normal color, warm/dry Laboratory Results Last 24 Hours Test 07/26/16 20:05 07/27/16 06:50 07/27/16 07:04 07/27/16 11:20 Bedside Glucose 126 mg/dl 133 mg/dl 185 mg/dl White Blood Count 5.23 K/uL Red Blood Count 3.41 M/uL Hemoglobin 10.6 g/dL Hematocrit 32.3 % Mean Corpuscular Volume 94.7 fL Mean Corpuscular Hemoglobin 31.1 pg Mean Corpuscular Hemoglobin Concent 32.8 g/dl Platelet Count 150 K/uL Mean Platelet Volume 10.7 fL Neutrophils (%) (Auto) 42.2 % Lymphocytes (%) (Auto) 44.2 % Monocytes (%) (Auto) 10.1 % Eosinophils (%) (Auto) 2.1 % Basophils (%) (Auto) 0.6 % Neutrophils # (Auto) 2.21 K/uL Lymphocytes # (Auto) 2.31 K/uL Monocytes # (Auto) 0.53 K/uL Eosinophils # (Auto) 0.11 K/uL Basophils # (Auto) 0.03 K/uL RDW Standard Deviation 47.5 fL RDW Coefficient of Variation 13.7 % Immature Granulocyte % (Auto) 0.8 % Immature Granulocyte # (Auto) 0.04 K/uL Activated Partial Thromboplast Time 35.5 SECONDS Partial Thromboplastin Ratio 1.4 Sodium Level 141 mmol/L Potassium Level 4.3 mmol/L Chloride Level 104 mmol/L Carbon Dioxide Level 28 mmol/L Anion Gap 9.0 mmol/L Blood Urea Nitrogen 16 mg/dl Creatinine 0.87 mg/dl Est Creatinine Clear Calc Drug Dose 73.0 ml/min Estimated GFR () 81.0 Estimated GFR (Non- 69.9 BUN/Creatinine Ratio 18.4 Random Glucose 126 mg/dl Calcium Level 8.4 mg/dl Magnesium Level 2.4 mg/dl Assessment and Plan Epistaxis (related to hypercoagulability from coumadin) -- stabilized after reversal of coumadin and packing of nare. 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 is tolerating xarelto well. acute blood loss anemia - due to above. hemodynamically stable, bleeding appears to have stopped Supratherapeutic INR greater than 8--no abx, no change in diet she can recall, no major changing in dosing she can recall. ?adherence issues - while she denies doubling up on dosing, she does admit to missing dosing, and while the rest of her meds are all in a pill counter set out by her dtr, she keeps her coumadin in her purse - raising the chances of accidental error quite significantly. after extensive discussions of risks/benefits of different approaches, yesterday she opted for xarelto. DVT/PE--requires lifelong anticoagulation - per her hx she is very high risk for recurrent clotting. on xarelto now. tolerating well. as above noted, due to her high risk and repeated clotting, not safe to be off anticoagulation until friday, unless bleeding recurs. her risk appears significantly amplified by her willful immobility. Diabetes mellitus--continue glipizide 5 mg by mouth twice a day. Holding metformin 500 mg by mouth twice a day, and place on Accu-Cheks before meals and at bedtime with NovoLog coverage. sugars have been reasonable weakness/deconditioning - see HPI. appearing to be acute on chronic. for rehab. after lengthy redirections to get her to admit her severity of weakness (and that home does not appear safe right now) she is amenable. breast lump -examines most c/w bruising//hematoma - but does need breast CA screening at baseline as well - so would proceed w mammo in the next month and serial exams ( if hematoma, obviously should resolve, if not, or if anything suspicious on mammo - then would bx) Psychiatry--continue amitriptyline 100 mg by mouth at bedtime, fluvoxamine 100 mg by mouth twice a day, Lyrica 50 mg by mouth daily, Seroquel 200 mg by mouth every morning and 600 mg by mouth at bedtime, and venlafaxine extended release 37.5 mg by mouth twice a day. Hypercholesterolemia--continue simvastatin 20 mg by mouth daily. Hypertension--continue carvedilol 12.5 mg by mouth twice a day. Hold torsemide COPD continue Symbicort 80/4.5, 2 puffs twice a day, and albuterol HFA 2 puffs 4 times a day when necessary. Vitamin B-12 deficiency--continue vitamin B12 1000 g by mouth daily. GERD--change omeprazole 20 mg by mouth twice a day to pantoprazole 40 mg by mouth twice a day. Hypothyroidism--she takes Nature-Throid 65 mg by mouth daily, which has no prescription equivalent. will need to take from home CAD risks/asa therapy - asa on hold for now. given that she has not had a vascular event she is aware of, we can hold the aspirin until packing is removed. rehab when approved/bed available
[2016-07-27] MEDS: RIVAROXABAN 10 MG TAB PO SCH (19:58)
[2016-07-27] MEDS: AMITRIPTYLINE HCL 100 MG TAB PO SCH (20:01)
[2016-07-27] MEDS: SIMVASTATIN 20 MG TAB PO SCH (20:02)
[2016-07-27 22:54] VITALS: BP 119/78; PULSE 95; TEMP 36.6; O2SAT 95
[2016-07-28 07:49] VITALS: BP 119/79; PULSE 99; TEMP 37; O2SAT 94
[2016-07-28] MEDS: BUDESONIDE/FORMOTEROL FUMARATE 80/4.5 60 PUFFS/INHALER INH SCH (08:32)
[2016-07-28] MEDS: CALCIUM 600MG + VIT D 400 IU TAB PO SCH ×2 (08:32→12:45)
[2016-07-28] MEDS: DOCUSATE SODIUM 100 MG CAP PO SCH ×2 (08:33→12:44)
[2016-07-28] MEDS: CYANOCOBALAMIN 500 MCG TAB (VIT B-12) PO SCH (08:33)
[2016-07-28] MEDS: CEPHALEXIN MONOHYDRATE 500 MG CAP PO SCH ×2 (08:33→12:44)
[2016-07-28] MEDS: FLUVOXAMINE MALEATE 50 MG TAB PO SCH (08:34)
[2016-07-28] MEDS: CARVEDILOL 12.5 MG TAB PO SCH (08:35)
[2016-07-28] MEDS: POTASSIUM CHLORIDE 20 MEQ TABCR PO SCH ×2 (08:35→12:45)
[2016-07-28] MEDS: VENLAFAXINE HCL XR 37.5 MG CAPXR PO SCH (08:35)
[2016-07-28] MEDS: PANTOprazole SOD 40 MG TAB PO SCH (08:36)
[2016-07-28] MEDS: MAGNESIUM OXIDE 400 MG TAB PO SCH ×2 (08:36→12:44)
[2016-07-28] MEDS: QUETIAPINE FUMARATE 200 MG TAB PO SCH (08:36)
[2016-07-28] MEDS: INSULIN ASPART 100 UNITS/ML 3 ML PEN SC SCH ×2 (08:38→12:43)
[2016-07-28] MEDS: PREGABALIN 50 MG CAP PO SCH (08:40)
[2016-07-28] MEDS: OXYCODONE/ACETAMINOPHEN 10/325MG TAB PO PRN (08:47)
[2016-07-28] MEDS: LORAZEPAM 0.5 MG TAB PO PRN (08:49)
--- NOTE | 2016-07-28 10:38 | Progress Note ---
Subjective Date of Service: Jul 28, 2016. Subjective Pt evaluation today including: conversation w/ patient, physical exam, chart review, lab review, review of inpatient medication list feeling about the same no new bleeding is weak. wants to go home - tries to redirect the conversation, then acknowledges that she's really weak and needs rehab. notes she doesn't do much at home - but that she has trouble with arthritis and fibromyalgia pain and that limits her. Problem List Medical Problems: (1) Right-sided epistaxis Status: Acute (2) Supratherapeutic INR Status: Acute Review of Systems Constitutional: + weakness ENT: No unusual epistaxis ros otherwise negative except for as above Objective Vital Signs Date Time Temp Pulse Resp B/P Pulse Ox O2 Delivery O2 Flow Rate FiO2 07/28/16 07:49 37.0 99 18 119/79 94 Room Air 07/28/16 00:00 Room Air 07/27/16 22:54 36.6 95 18 119/78 95 Room Air 07/27/16 20:00 Room Air 07/27/16 16:00 92 Room Air 07/27/16 15:17 36.8 96 18 109/74 92 Room Air Physical Exam General Appearance: no apparent distress Eyes: EOMI ENT: hearing grossly normal, + pertinent finding (R nare crusted and packed, no oozing) Neck: trachea midline Respiratory/Chest: no respiratory distress, no accessory muscle use Extremities: normal range of motion 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 given risks/benefits and the fact that she relates being a [id number]-szxlcbhnh clotter with a high anxiety about future clotting events, does not appear entirely safe to leave off anticoagulation until packing removed. is tolerating xarelto well. -for packing removal tomorrow; if hasn't been approved for HSR then will have ENT see here. acute blood loss anemia - due to above. hemodynamically stable, bleeding appears to have stopped Supratherapeutic INR greater than 8--no abx, no change in diet she can recall, no major changing in dosing she can recall. ?adherence issues - while she denies doubling up on dosing, she does admit to missing dosing, and while the rest of her meds are all in a pill counter set out by her dtr, she keeps her coumadin in her purse - raising the chances of accidental error quite significantly. after extensive discussions of risks/benefits of different approaches, she opted for xarelto. has been doing well. DVT/PE--requires lifelong anticoagulation - per her hx she is very high risk for recurrent clotting. on xarelto now. tolerating well. as above noted, due to her high risk and repeated clotting, not safe to be off anticoagulation until friday, unless bleeding recurs. her risk appears significantly amplified by her willful immobility. Diabetes mellitus--continue glipizide 5 mg by mouth twice a day. Holding metformin 500 mg by mouth twice a day, and place on Accu-Cheks before meals and at bedtime with NovoLog coverage. sugars have been reasonable weakness/deconditioning - see HPI. appearing to be acute on chronic. for rehab. discussed that her immobility is actually appearing to be her biggest problem - and the most likely to lead to worsening morbidity and mortality. discussed the critical need for movement, and that with her arthritis and fibromyalgia, she'd more likely to have less really bad days if she moves more ( that moving more might hurt more at first, but the more she does the less bad days she's likely to have) breast lump -examines most c/w bruising//hematoma - but does need breast CA screening at baseline as well - so would proceed w mammo in the next month and serial exams ( if hematoma, obviously should resolve, if not, or if anything suspicious on mammo - then would bx) Psychiatry--continue amitriptyline 100 mg by mouth at bedtime, fluvoxamine 100 mg by mouth twice a day, Lyrica 50 mg by mouth daily, Seroquel 200 mg by mouth every morning and 600 mg by mouth at bedtime, and venlafaxine extended release 37.5 mg by mouth twice a day. Hypercholesterolemia--continue simvastatin 20 mg by mouth daily. Hypertension--continue carvedilol 12.5 mg by mouth twice a day. Hold torsemide COPD continue Symbicort 80/4.5, 2 puffs twice a day, and albuterol HFA 2 puffs 4 times a day when necessary. Vitamin B-12 deficiency--continue vitamin B12 1000 g by mouth daily. GERD--change omeprazole 20 mg by mouth twice a day to pantoprazole 40 mg by mouth twice a day. Hypothyroidism--she takes Nature-Throid 65 mg by mouth daily, which has no prescription equivalent. will need to take from home CAD risks/asa therapy - asa on hold for now. given that she has not had a vascular event she is aware of, we can hold the aspirin until packing is removed. rehab when approved/bed available (hopefully today)
[2016-07-28] MEDS ORDERED: XRL10 PO (11:47)
[2016-07-28] MEDS ORDERED: KFL500 PO (11:47)
--- NOTE | 2016-07-28 11:56 | Discharge Instructions ---
Discharge Instructions Admission Reason for Admission: Right-Sided Epistaxis, Supratherapeutic Inr Discharge Discharge Diagnosis / Problem: epistaxis, severe deconditioning Discharge Goals Goal(s): Diagnostic testing, Therapeutic intervention Activity Recommendations Activity Level: Assistance Required Therapies: Physical Therapy, Occupational Therapy . Additional Information Patient informed of condition: Yes Advance Directives: No DNR: No Level of Care: Acute Rehab Communicable Disease: No Prognosis: Improving Instructions / Follow-Up Instructions / Follow-Up a) nosebleeds -had severe epistaxis requiring packing, and leading to about a 2g drop in hemoglobin, when INR was >8. with correction of coagulopathy, nosebleeds have resolved. to see ENT tomorrow (Dr Barrett [phone]) to remove packing; to be on antibiotics finishing 7 day course (unless directed otherwise by Dr Barrett ) -has been on xarelto (see below regarding clotting) and has had no recurrence of bleeding; since aspirin was for primary prevention, this can be held until clear that nosebleeds are a long resolved issue (?consider resuming ~1wk after packing out if no further bleeding) b) weakness/deconditioning -pt has been VERY immobile at home, relates some to simply not doing much, relates some to pain from arthritis and fibromyalgia. is too weak to be independent currently - main goal of rehab will be to strengthen to where she is able to return to independent living, as well as encourage her to then remain more active to reduce risks for morbidity and mortality (and hopefully improve fibromyalgia and DJD related pains) c) thromboembolic disease -had been on coumadin for ~40yrs due to recurrent DVT/PE illnesses - she cannot remember when last she had an active clot (on directed questioning seems to have at least been a year) but also notes that she's been high risk and frequently has had repeated clotting events. because of this, we had her off anticoagulation for as short a time as possible, and initiated xarelto when INR was 1.8. she has had no bleeding on this. because she had bleeding event from being hypercoagulable, and because she repeatedly had lamented the difficulties of being on coumadin, after lengthy discussion and careful consideration, we transitioned her from coumadin to xarelto -- has done well for several days. d) breast lump -strongly suspect is bruising/hematoma, but is overdue for screening. would routinely have mammogram set up (likely after she is discharged from rehab, but because this is an ancillary finding, it carries high "slip through the cracks" risk unless kept at the forefront). likewise, she should have a follow up exam of the breast in about 4 weeks to ensure the lumps are resolving. e) diuretic therapy -she came to the hospital on torsemide as a home medication. with the bleeding/ hemodynamic concerns at admission, this was held. because her creatinine improved and she has shown absolutely no s/s CHF, we have not elected to resume it. would continue to hold diuretics and follow clinically, only resuming if it appears clinically warranted. Current Hospital Diet Patient's current hospital diet: AHA Diet (Heart Healthy), Diabetes Type 2 Diet Discharge Diet Recommended Diet: AHA Diet (Heart Healthy), Diabetes Type 2 Diet Pending Studies Studies pending at discharge: no Medical Emergencies . Who to Call and When: Medical Emergencies: If at any time you feel your situation is an emergency, please call 911 immediately. . Non-Emergent Contact Non-Emergency issues call your: Primary Care Provider . . "Provider Documentation" section prepared by Howard Judd. Core Measure Problem Core Measures: None
[2016-07-28 13:24] VITALS: BP 119/79; PULSE 99; TEMP 37; O2SAT 94
== END 2016-07-28 15:00 | DRG 151 ==
LOC: ENRESERVTM → ENRESERVDT → C.EDB 20:24 → C.2T 23:43 → C.MED 07-25 16:06
PROVIDERS: ADMIT Hospitalist; ATTEND Family Medicine
PROC: 2Y41X5Z Packing of Nasal Region using Packing Material (ICD-10-PCS; principal; 2016-07-24)
DX: R04.0 Epistaxis (principal); D62 Acute posthemorrhagic anemia; I10 Essential (primary) hypertension; E11.9 Type 2 diabetes mellitus without complications; J44.9 Chronic obstructive pulmonary disease, unspecified; K21.9 Gastro-esophageal reflux disease without esophagitis; E78.00 Pure hypercholesterolemia, unspecified; E53.8 Deficiency of other specified B group vitamins; E03.9 Hypothyroidism, unspecified; Z83.3 Family history of diabetes mellitus; Z82.49 Family history of ischemic heart disease and other diseases of the circulatory system; R79.1 Abnormal coagulation profile; Z86.718 Personal history of other venous thrombosis and embolism

== ENCOUNTER 2016-10-27 16:44 | Emergency (ER) | payer OTHER ==
[~2016-10-27 16:44] MED LIST changes: -AMIT50TA3 PO; +AMT100 PO; +ATV5X PO; +CALC500C70 PO; +CARV12.52 PO; -CLOT10TR2 MT; +CYAN100020 PO; +DOCU100C31 PO; -EFF/375 PO; +ERGO1CAP35 PO; +FLUV100T12 PO; +GLC5 PO; +GLC500 PO; -GLIP-197 PO; +KFL500 PO; -LORA-741 PO; +LYR/50 PO; -LYR50 PO; +MAGN400T6 PO; -NYST100010 TD; +OMEP20CA9 PO; +OXYC-106 PO; +POTA20TA13 PO; -PRLSR20 PO; +Proair HFA INH; +QUET1TAB10 PO; -QUET200T2 PO; +SIMV-151 PO; -SIMV20TA2 PO; +SYMIN/8045 INH; -SYMIN8045 INH; +THYR65TA11 PO; -TORS20TA2 PO; +VENL37.593 PO; -WARF6TAB5 PO; +XRL10 PO
[2016-10-27 16:52] VITALS: Ht 154.9 cm
[2016-10-27] MEDS ORDERED: ALBUT/IPRATROP 3MG/0.5MG NEB 3 ML VIAL INH STA (17:11)
[2016-10-27] MEDS ORDERED: HYDROCODONE/HOMATROPINE SYRUP 5MG/1.5MG 5ML UDP PO STA (17:11)
--- NOTE | 2016-10-27 18:23 | DIAGNOSTIC IMAGING REPORT ---
SINGLE VIEW CHEST CLINICAL HISTORY: Cough and dyspnea. FINDINGS: An AP, portable, upright chest radiograph is obtained. No prior studies are available for comparison at the time of dictation. The examination is significantly degraded by portable technique, large body habitus, and patient rotation. The cardiomediastinal silhouette is unremarkable. Bibasilar atelectasis is observed. No airspace consolidation is identified typical for pneumonia and there is no large pleural effusion. No pneumothorax is seen. The skeletal structures are osteopenic. The bony thorax is grossly intact. IMPRESSION: No acute cardiopulmonary abnormality. Electronically signed by: Jese Goncalves M.D. 10/27/2016 6:20 PM Dictated Date/Time: 10/27/2016 6:20 PM
[2016-10-27] MEDS ORDERED: HYDR5SYP11 PO (18:27)
[2016-10-27] MEDS ORDERED: ALBUTEROL HFA 8 GM INHALER INH ONE (18:30)
--- NOTE | 2016-10-27 18:30 | EMERGENCY ROOM VISIT NOTE ---
History Report prepared by Sonia: Eulogio Lunsford Under the Supervision of: Dr. Edgar Matthews D.O. First contact with patient: 17:07 Chief Complaint: COUGH Stated Complaint: COUGHING, CAN'T BREATH History of Present Illness The patient is a 66 year old female who presents to the Emergency Room with complaints of a worsening cough for the past 4 days. The patient states that she is unable to catch her breath. Per the patient's family, the patient was seen by her doctor for bronchitis, and they gave her antibiotics, however they have not helped. She additionally states that she has a headache. The patient's family states that the patient has a history of bronchitis which turns into pneumonia, and this is similar. The family states that the patient was given a breathing treatment earlier today. Source of History: patient, family Onset: four days Position: other (global) Quality: other (cough) Timing: worsening Associated Symptoms: + SOB, + headache Review of Systems See HPI for pertinent positives & negatives. A total of 10 systems reviewed and were otherwise negative. Past Medical & Surgical Medical Problems: (1) Asthma (2) Bronchitis (3) Diabetes (4) DVT (deep venous thrombosis) (5) Hypertension (6) Pneumonia (7) Pulmonary embolism Family History Cancer Diabetes mellitus Gallbladder disease Heart disease Hypertension Kidney disease Kidney stones Lung disease Social History Smoking Status: Never Smoker Alcohol Use: none Drug Use: none Marital Status: single Housing Status: lives alone Occupation Status: retired Current/Historical Medications Scheduled Amitriptyline HCl (Amitriptyline HCl), 100 MG PO HS Budesonide/Formoterol Fumarate (Symbicort 80/4.5 Inhaler), 2 PUFFS INH BID Calcium/Vitamin D (Os-Federico 500 Plus D), 1 TAB PO TID Carvedilol (Coreg), 12.5 MG PO BID Cephalexin Monohydrate (Cephalexin), 500 MG PO QID Cyanocobalamin (Vitamin B12), 1,000 MCG PO DAILY Docusate Sodium (Docusate Sodium), 100 MG PO QID Ergocalciferol (Vitamin D Cap), 50,000 INTER.UNIT PO WK Fluvoxamine Maleate (Luvox), 100 MG PO BID Glipizide (Glipizide), 5 MG PO BID Magnesium Oxide (Mag-Ox), 400 MG PO QID Metformin HCl (Metformin HCl), 500 MG PO BIDM Omeprazole (Prilosec), 20 MG PO BID Potassium Chloride Microencaps (Potassium Chloride Er), 20 MEQ PO TID Pregabalin (Lyrica), 50 MG PO DAILY Quetiapine Fumarate (Seroquel), 600 MG PO HS Quetiapine Fumarate (Seroquel), 200 MG PO QAM Rivaroxaban (Xarelto), 20 MG PO DAILY@2000 Simvastatin (Simvastatin), 20 MG PO DAILY Thyroid (Nature-Throid), 65 MG PO DAILY Venlafaxine Hcl (Venlafaxine Extended Rel), 37.5 MG PO BID Scheduled PRN Hydrocodone W/ Homatropine (Hycodan 5/1.5MG 5 Ml), 5 ML PO Q6H PRN for Cough Lorazepam (Lorazepam), 0.5 MG PO TID PRN for Anxiety Oxycodone/Acetaminophen 10MG/325MG (Percocet 10MG/325MG), 1 TAB PO QID PRN for Pain [Proair HFA], 2 PUFFS INH UD PRN for SOB/Wheezing Allergies Coded Allergies: Erythromycin (Verified Adverse Reaction, Intermediate, N/V, 07/03/15) Physical Exam Vital Signs Date Time Temp Pulse Resp B/P Pulse Ox O2 Delivery O2 Flow Rate FiO2 10/27/16 17:01 96 Room Air 10/27/16 16:52 37.1 108 18 124/88 91 Room Air Physical Exam CONSTITUTIONAL/VITAL SIGNS: Reviewed / noted above. GENERAL: Non-toxic in appearance. INTEGUMENTARY: Warm, dry, and [place]. HEAD: Normocephalic. EYES: without scleral icterus or trauma. ENT/OROPHARYNX: clear and moist. LYMPHADENOPATHY/NECK: Is supple without lymphadenopathy or meningismus. RESPIRATORY: Scattered expiratory wheezing bilaterally. Cough is present during the exam. CARDIOVASCULAR: Regular rate and rhythm. GI/ABDOMEN: Soft and nontender. No organomegaly or pulsatile mass. No rebound or guarding. Normal bowel sounds. EXTREMITIES: Warm and well perfused. BACK: No CVA tenderness. NEUROLOGICAL: Intact without focal deficits. PSYCHIATRIC: normal affect. MUSCULOSKELETAL: Normally developed with good muscle tone. Medical Decision & Procedures ER Provider Diagnostic Interpretation: X ray results and stated below per my interpretation and radiology interpretation. SINGLE VIEW CHEST CLINICAL HISTORY: Cough and dyspnea. FINDINGS: An AP, portable, upright chest radiograph is obtained. No prior studies are available for comparison at the time of dictation. The examination is significantly degraded by portable technique, large body habitus, and patient rotation. The cardiomediastinal silhouette is unremarkable. Bibasilar atelectasis is observed. No airspace consolidation is identified typical for pneumonia and there is no large pleural effusion. No pneumothorax is seen. The skeletal structures are osteopenic. The bony thorax is grossly intact. IMPRESSION: No acute cardiopulmonary abnormality. Electronically signed by: Jese Goncalves M.D. 10/27/2016 6:20 PM Dictated Date/Time: 10/27/2016 6:20 PM Medications Administered Medications (Trade) Dose Ordered Sig/Natalie Route Start Time Stop Time Status Last Admin Dose Admin Hydrocodone Bit/ Homatropine Methylb (Hycodan Syrup) 5 ml NOW STAT PO 10/27/16 17:11 10/27/16 17:13 DC 10/27/16 17:30 5 ML Albuterol/ Ipratropium (Duoneb) 3 ml NOW STAT INH 10/27/16 17:11 10/27/16 17:13 DC 10/27/16 17:29 3 ML ED Course 1707: Previous medical records were reviewed. The patient was evaluated in room B4. A complete history and physical examination was performed. 1711: DuoNeb 3ml INH, Hycodan Syrup 5ml PO 1830: Albuterol Inhaler 2 puffs INH 1834: On reevaluation, the patient is feeling well. I discussed the results and findings with the patient. She verbalized agreement of the treatment plan. She was discharged home. Medical Decision the differential was considered includes acute myocardial infarction, acute coronary syndrome, myocarditis, pericarditis, pericardial effusions /tamponade, esophageal perforation, pulmonary embolism, pneumonia, pneumothorax, cardiomyopathy, congestive heart, anemia , COPD/asthma exacerbation. This is a 66-year-old female who presents to the ED with a chief complaint of a cough productive of green sputum. She states that her symptoms started on Friday. She was seen by her PCP and started on amoxicillin. Her exam reveals some scattered expiratory wheezes. She reports a bad cough. She was given a DuoNeb treatment here as well as Hycodan by mouth. The patient will has a chest x-ray was negative for acute disease. The patient was discharged with albuterol inhaler as well as Hycodan for her cough. Impression Primary Impression: Cough Additional Impression: Acute bronchitis Scribe Attestation The scribe's documentation has been prepared under my direction and personally reviewed by me in its entirety. I confirm that the note above accurately reflects all work, treatment, procedures, and medical decision making performed by me. Departure Information Dispostion Home / Self-Care Prescriptions Hydrocodone W/ Homatropine (HYCODAN 5/1.5MG 5 ML) 1 Syp Syp 5 ML PO Q6H Y for Cough for 5 Days, #100 ML Prov: Edgar Matthews D.O. 10/27/16 Referrals Noni Allan M.D. (PCP) Forms HOME CARE DOCUMENTATION FORM, IMPORTANT VISIT INFORMATION Patient Instructions My [facility] Additional Instructions Hycodan as prescribed as needed for cough. This may cause drowsiness. No driving within 6 hours of use. Amoxicillin as prescribed. Albuterol inhaler: 2 puffs every 2-4 hours as needed. Problem Qualifiers
[2016-10-27 19:01] VITALS: BP 124/88; PULSE 100; TEMP 37.1; O2SAT 97
== END 2016-10-27 19:02 | disposition home or self-care (01) ==
LOC: C.EDB 16:46
DX: R05 Cough (principal); J20.9 Acute bronchitis, unspecified; J45.909 Unspecified asthma, uncomplicated; E11.9 Type 2 diabetes mellitus without complications; I10 Essential (primary) hypertension; Z86.711 Personal history of pulmonary embolism; Z83.3 Family history of diabetes mellitus; Z82.49 Family history of ischemic heart disease and other diseases of the circulatory system

== ENCOUNTER 2017-08-26 14:10 | Emergency (ER) | payer OTHER ==
[~2017-08-26] VITALS: Ht 157.5 cm; Wt 112.3 kg
[~2017-08-26 14:10] MED LIST changes: -KFL500 PO
[2017-08-26 14:13] VITALS: TEMP 36.7; Ht 157.5 cm; Wt 112.3 kg
[2017-08-26] MEDS ORDERED: ALBUT/IPRATROP 3MG/0.5MG NEB 3 ML VIAL INH STA (14:21)
[2017-08-26] MEDS ORDERED: SODIUM CHLORIDE 0.9% 1000ML 500 ML IV STA (14:21)
--- NOTE | 2017-08-26 14:33 | EMERGENCY ROOM VISIT NOTE ---
History Report prepared by Sonia: Heladio Mancia Under the Supervision of: Dr. Jese Mcfadden M.D. First contact with patient: 14:18 Chief Complaint: SHORTNESS OF BREATH Stated Complaint: COUGH, SOB, WEAKNESS AND HEADACHE Nursing Triage Summary: I had a touch of pneumonia a month ago. I have a terrible terrible cough. History of Present Illness The patient is a 67 year old female who presents to the Emergency Room with complaints of intermittent respiratory symptoms that began about 2 month ago. She has a past medical history of diabetes, DVT, PE, asthma, and COPD. Over this time, the patient has been experiencing shortness of breath, chest pain, and a productive cough. She was diagnosed with pneumonia 2 months ago and has used multiple courses of antibiotics over this time including, Amoxicillin, Zithromax x3, Levaquin, and others. Her most recently completed antibiotic was Azithromycin. Her symptoms improve slightly for a short amount of time after she finished the antibiotics, but her symptoms then present themselves again. Her shortness of breath and chest pain are exacerbated with coughing. She denies any fevers, but is experiencing some chills. She did not receive her flu immunization this year. She was originally on Coumadin but was switched to Xarelto about 2 years ago. She states that she was recently switched back to Coumadin. Source of History: patient Onset: 2 months ago Position: other (Respiratory System) Symptom Intensity: moderate Quality: other (Shortness of breath) Timing: intermittent Associated Symptoms: + chills, + cough (productive), + chest pain, No fevers Review of Systems See HPI for pertinent positives & negatives. A total of 10 systems reviewed and were otherwise negative. Past Medical & Surgical Medical Problems: (1) Asthma (2) Bronchitis (3) Diabetes (4) DVT (deep venous thrombosis) (5) Hypertension (6) Pneumonia (7) Pulmonary embolism Family History Cancer Diabetes mellitus Gallbladder disease Heart disease Hypertension Kidney disease Kidney stones Lung disease Social History Smoking Status: Never Smoker Alcohol Use: none Drug Use: none Marital Status: single Housing Status: lives alone Occupation Status: retired Current/Historical Medications Scheduled Amitriptyline HCl (Amitriptyline HCl), 100 MG PO HS Budesonide/Formoterol Fumarate (Symbicort 80/4.5 Inhaler), 2 PUFFS INH BID Calcium/Vitamin D (Os-Federico 500 Plus D), 1 TAB PO TID Carvedilol (Coreg), 12.5 MG PO BID Cyanocobalamin (Vitamin B12), 1,000 MCG PO DAILY Docusate Sodium (Docusate Sodium), 100 MG PO QID Ergocalciferol (Vitamin D 83485 Unit), 50,000 UNIT PO WK Fluvoxamine Maleate (Luvox), 100 MG PO BID Glipizide (Glipizide), 5 MG PO BID Magnesium Oxide (Mag-Ox), 400 MG PO QID Metformin HCl (Metformin HCl), 500 MG PO BIDM Omeprazole (Prilosec), 20 MG PO BID Potassium Chloride Microencaps (Potassium Chloride Er), 20 MEQ PO TID Pregabalin (Lyrica), 50 MG PO DAILY Quetiapine Fumarate (Seroquel), 400 MG PO HS Simvastatin (Simvastatin), 20 MG PO DAILY Thyroid (Nature-Throid), 65 MG PO DAILY Venlafaxine Hcl (Venlafaxine Extended Rel), 37.5 MG PO BID Warfarin Sod (Jantoven), 5 MG PO DAILY Scheduled PRN Albuterol (Ventolin Hfa), 2 PUFFS INH DAILY PRN for SOB/Wheezing Hydrocodone W/ Homatropine (Hycodan 5/1.5MG 5 Ml), 5-10 ML PO Q4H PRN for Cough Lorazepam (Lorazepam), 0.5 MG PO TID PRN for Anxiety Oxycodone/Acetaminophen 10MG/325MG (Percocet 10MG/325MG), 1 TAB PO QID PRN for Pain Allergies Coded Allergies: Erythromycin (Verified Adverse Reaction, Intermediate, N/V, 08/26/17) Physical Exam Vital Signs Date Time Temp Pulse Resp B/P (MAP) Pulse Ox O2 Delivery O2 Flow Rate FiO2 08/26/17 17:15 87 20 139/90 95 Room Air 08/26/17 14:51 90 20 133/70 94 Room Air 08/26/17 14:35 92 08/26/17 14:13 93 Room Air 08/26/17 14:13 36.7 89 22 122/75 93 Room Air Physical Exam GENERAL: Patient is in no acute distress. HEENT: No acute trauma, normocephalic atraumatic, mucous membranes moist, no nasal congestion, no scleral icterus. NECK: No stridor, no adenopathy, no meningismus, trachea is midline. LUNGS: Decreased breath sounds with a dry cough noted. Wheezing bilaterally. Breath sounds are equal. HEART: Without murmurs gallops or rubs, regular rate and rhythm. ABDOMEN: Soft, nontender, bowel sounds positive, no hernias, no peritonitis. EXTREMITIES: No cyanosis or edema, full range of motion of all the joints without pain or difficulty, no signs for acute trauma. NEUROLOGIC: Oriented x 3, no acute motor or sensory deficits, no focal weakness. SKIN: No rash, no jaundice, no diaphoresis. Medical Decision & Procedures ER Provider Diagnostic Interpretation: Radiology results as stated below per my review and radiologist interpretation: (CHEST FOR PE) ANGIO WITH CLINICAL HISTORY: 67 years-old Female presenting with ^CHEST PAIN--IF ABLE PLEASE EVALUATE THORACIC AORTA WELL. TECHNIQUE: Multidetector CT angiography of the chest was performed after administration of intravenous contrast. 3-D volumetric and/or maximum intensity projection (MIP) images were subsequently reconstructed for review. IV contrast: 98 mL of Optiray 320. A dose lowering technique was used consistent with the principles of ALARA (as low as reasonably achievable). COMPARISON: Chest x-ray performed earlier the same day. CT DOSE (mGy.cm): The estimated cumulative dose is 858.45 mGy.cm. 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 Pulmonary vasculature: The study is suboptimal for the assessment of the pulmonary vascular tree secondary to timing of the contrast bolus and respiratory motion artifact. Allowing for limited image quality, no central filling defect to suggest pulmonary embolus. Main pulmonary artery is not enlarged. No flattening of the interventricular septum. No intracardiac filling defect. Reflux of contrast into the IVC and hepatic veins. Remaining chest: On soft tissue windows, normal thyroid and thoracic inlet. No axillary, supraclavicular, hilar, or mediastinal lymphadenopathy. Normal aorta. Mild multichamber enlargement of the heart. No pericardial or pleural effusion. Hepatic steatosis. On lung windows, minimal dependent changes likely atelectasis. No other focal nodule or infiltrate. Airways patent. Evaluate in of the lung parenchyma is limited by motion artifact relating to respiration. On bone windows, degenerative changes of the spine. IMPRESSION: 1. Allowing for suboptimal image quality, no evidence of pulmonary embolus. No acute intrathoracic pathology. 2. Reflux of contrast into the IVC and hepatic veins suggests elevated right heart pressure. 3. Hepatic steatosis. Electronically signed by: Rojelio Andersen M.D. 08/26/2017 4:46 PM Dictated Date/Time: 08/26/2017 4:41 PM CHEST ONE VIEW PORTABLE HISTORY: EVALUATE RESPIRATORY DISTRESS.DYSPNEA COMPARISON: Chest 10/27/2016. FINDINGS: No pneumothorax. No pleural effusions. No focal lung consolidations. Mild diffuse interstitial thickening, unchanged. No evidence for pulmonary edema. The heart is top normal in size. Old posttraumatic changes within the left humeral head. IMPRESSION: Mild interstitial thickening which is likely chronic. Otherwise, no acute process within the chest. Electronically signed by: Chas Mitchell M.D. 08/26/2017 3:06 PM Dictated Date/Time: 08/26/2017 3:04 PM Laboratory Results 08/26/17 14:34 Red Blood Count 4.18, Mean Corpuscular Volume 93.3, Mean Corpuscular Hemoglobin 31.3, Mean Corpuscular Hemoglobin Concent 33.6, Mean Platelet Volume 11.3, Neutrophils (%) (Auto) 48.7, Lymphocytes (%) (Auto) 40.3, Monocytes (%) (Auto) 7.9, Eosinophils (%) (Auto) 2.3, Basophils (%) (Auto) 0.3, Neutrophils # (Auto) 2.94, Lymphocytes # (Auto) 2.44, Monocytes # (Auto) 0.48, Eosinophils # (Auto) 0.14, Basophils # (Auto) 0.02 08/26/17 14:34 Test 08/26/17 14:30 08/26/17 14:34 Influenza Type A (RT-PCR) Neg for Influ A (NEG) Influenza Type B (RT-PCR) Neg for Influ B (NEG) White Blood Count 6.05 K/uL (4.8-10.8) Red Blood Count 4.18 M/uL (4.2-5.4) Hemoglobin 13.1 g/dL (12.0-16.0) Hematocrit 39.0 % (37-47) Mean Corpuscular Volume 93.3 fL (80-100) Mean Corpuscular Hemoglobin 31.3 pg (25-34) Mean Corpuscular Hemoglobin Concent 33.6 g/dl (32-36) Platelet Count 180 K/uL (130-400) Mean Platelet Volume 11.3 fL (7.4-10.4) Neutrophils (%) (Auto) 48.7 % Lymphocytes (%) (Auto) 40.3 % Monocytes (%) (Auto) 7.9 % Eosinophils (%) (Auto) 2.3 % Basophils (%) (Auto) 0.3 % Neutrophils # (Auto) 2.94 K/uL (1.4-6.5) Lymphocytes # (Auto) 2.44 K/uL (1.2-3.4) Monocytes # (Auto) 0.48 K/uL (0.11-0.59) Eosinophils # (Auto) 0.14 K/uL (0-0.5) Basophils # (Auto) 0.02 K/uL (0-0.2) RDW Standard Deviation 46.5 fL (36.4-46.3) RDW Coefficient of Variation 13.7 % (11.5-14.5) Immature Granulocyte % (Auto) 0.5 % Immature Granulocyte # (Auto) 0.03 K/uL (0.00-0.02) Prothrombin Time 15.4 SECONDS (9.0-12.0) Prothromb Time International Ratio 1.5 (0.9-1.1) Activated Partial Thromboplast Time 30.5 SECONDS (21.0-31.0) Partial Thromboplastin Ratio 1.2 Anion Gap 6.0 mmol/L (3-11) Est Creatinine Clear Calc Drug Dose 65.5 ml/min Estimated GFR () 68.0 Estimated GFR (Non- 58.7 BUN/Creatinine Ratio 12.3 (10-20) Calcium Level 8.8 mg/dl (8.5-10.1) Magnesium Level 2.2 mg/dl (1.8-2.4) Total Bilirubin 0.3 mg/dl (0.2-1) Aspartate Amino Transf (AST/SGOT) 37 U/L (15-37) Alanine Aminotransferase (ALT/SGPT) 40 U/L (12-78) Alkaline Phosphatase 84 U/L (45-117) Troponin I < 0.015 ng/ml (0-0.045) Total Protein 7.6 gm/dl (6.4-8.2) Albumin 3.7 gm/dl (3.4-5.0) Globulin 3.9 gm/dl (2.5-4.0) Albumin/Globulin Ratio 0.9 (0.9-2) Laboratory results reviewed by me. Medications Administered Medications (Trade) Dose Ordered Sig/Natalie Route Start Time Stop Time Status Last Admin Dose Admin Sodium Chloride 500 ml @ 999 mls/hr Q31M STAT IV 08/26/17 14:21 08/26/17 14:51 DC 08/26/17 14:34 999 MLS/HR Albuterol/ Ipratropium (Duoneb) 3 ml NOW STAT INH 08/26/17 14:21 08/26/17 14:28 DC 08/26/17 14:34 3 ML ECG Indication: SOB/dyspnea Rate (beats per minute): 92 Rhythm: normal sinus Findings: other (No ST elevation or PVC) Change: Patient's electrocardiogram interpreted by me. ED Course 1418: The patient was evaluated in room B4. A complete history and physical exam was performed. 1421: Ordered DuoNeb 3 ml INH, Sodium Chloride 500 ml @ 999 mls/hr IV 1658: Upon reevaluation, the patient is doing well. We will have her complete an ambulatory trial. 1737: Reevaluated the patient. She successfully completed her ambulatory trial without a saturation drop. Discussed results and discharge instructions: She verbalized understanding and agreement. The patient is ready for discharge. Medical Decision Differential diagnosis includes but is not limited to pneumonia, bronchitis, PE , malignancy, exacerbation of COPD, failed outpatient treatment, anemia, cardiac ischemia, and electrolyte imbalance. There is no leukocytosis or concerning anemia. No significant electrolyte abnormality, kidney failure or hepatitis. INR is subtherapeutic, the patient though just restarted her Coumadin. Influenza testing was negative. Chest film showed some chronic change to the lung parenchyma, no focal infiltrate, no pneumothorax or CHF. Chest CT does not show PE, no evidence for pneumonia. EKG shows a sinus rhythm, there is no acute ischemia. Cardiac enzyme testing 1 is not consistent with acute cardiac injury. The patient received a DuoNeb, she received a small amount of IV saline. She is doing well. She was able to walk around this ER with no drop of her O2 saturation. The patient has an acute bronchitis with a flare of her COPD. She needs to use her albuterol more frequently. She does not tolerate steroids well because of her diabetes history. I do think she can be discharged, antibiotics are not indicated as she has already been on multiple courses. The patient will be seeing pulmonology in follow-up. If her breathing worsens, she will return. [place] Drug Monitoring Program Search Results: patient reviewed within database, no issues identified (Last cough syrup was at the end of June) Medication Reconcilliation Current Medication List: was personally reviewed by me Blood Pressure Screening Patient's blood pressure: Normal blood pressure Blood pressure disposition: Did not require urgent referral Impression Primary Impression: Acute bronchitis Additional Impression: COPD exacerbation Scribe Attestation The scribe's documentation has been prepared under my direction and personally reviewed by me in its entirety. I confirm that the note above accurately reflects all work, treatment, procedures, and medical decision making performed by me. Departure Information Dispostion Home / Self-Care Prescriptions Hydrocodone W/ Homatropine (HYCODAN 5/1.5MG 5 ML) 1 Syp Syp 5-10 ML PO Q4H Y for Cough, #120 ML Prov: Jese Mcfadden M.D. 08/26/17 Referrals Noni Allan M.D. (PCP) Chas Da Silva MD Forms HOME CARE DOCUMENTATION FORM, IMPORTANT VISIT INFORMATION Patient Instructions My [facility] [employer]canbes[employer]onsored Additional Instructions use the neb every 4 hours hycodan cough syrup 1-2 tsp every 6 hours as needed call and set up pulmonary doctor appt return for worsening breathing, chest pain or fever workup today was ok as we discussed Problem Qualifiers
[2017-08-26 14:49] LABS: BASO % 0.3 %; BASO ABS # 0.02 K/uL (0-0.2); EOS % 2.3 %; EOS ABS # 0.14 K/uL (0-0.5); HEMOGLOBIN 13.1 g/dL (12.0-16.0); IG# 0.03 K/uL (0.00-0.02); LYMPH % 40.3 %; LYMPH ABS # 2.44 K/uL (1.2-3.4); MEAN CELL VOLUME 93.3 fL (80-100); MEAN CORPUSCULAR HEMOGLOBIN 31.3 pg (25-34); MEAN CORPUSCULAR HGB CONC 33.6 g/dl (32-36); MEAN PLATELET VOLUME 11.3 fL (7.4-10.4); MONO % 7.9 %; MONO ABS # 0.48 K/uL (0.11-0.59); NEUT % 48.7 %; NEUT ABS # 2.94 K/uL (1.4-6.5); PLATELET COUNT 180 K/uL (130-400); RED CELL DISTRIBUTION WIDTH CV 13.7 % (11.5-14.5); RED CELL DISTRIBUTION WIDTH SD 46.5 fL (36.4-46.3); WHITE BLOOD COUNT 6.05 K/uL (4.8-10.8)
[2017-08-26 14:57] LABS: INR 1.5 (0.9-1.1); PTT PATIENT 30.5 SECONDS (21.0-31.0)
[2017-08-26] MEDS ORDERED: OPTIRAY 320 IV PRN (15:00)
--- NOTE | 2017-08-26 15:07 | DIAGNOSTIC IMAGING REPORT ---
CHEST ONE VIEW PORTABLE HISTORY: EVALUATE RESPIRATORY DISTRESS.DYSPNEA COMPARISON: Chest 10/27/2016. FINDINGS: No pneumothorax. No pleural effusions. No focal lung consolidations. Mild diffuse interstitial thickening, unchanged. No evidence for pulmonary edema. The heart is top normal in size. Old posttraumatic changes within the left humeral head. IMPRESSION: Mild interstitial thickening which is likely chronic. Otherwise, no acute process within the chest. Electronically signed by: Chas Mitchell M.D. 08/26/2017 3:06 PM Dictated Date/Time: 08/26/2017 3:04 PM
[2017-08-26 15:09] LABS: ALBUMIN 3.7 gm/dl (3.4-5.0); ALT/SGPT 40 U/L (12-78); AST/SGOT 37 U/L (15-37); BLOOD UREA NITROGEN 12 mg/dl (7-18); CALCIUM 8.8 mg/dl (8.5-10.1); CARBON DIOXIDE 28 mmol/L (21-32); GLUCOSE 150 mg/dl (70-99); POTASSIUM 4.5 mmol/L (3.5-5.1); SODIUM 136 mmol/L (136-145)
[2017-08-26 15:14] LABS: ALKALINE PHOSPHATASE 84 U/L (45-117); TOTAL PROTEIN 7.6 gm/dl (6.4-8.2)
[2017-08-26] MEDS ORDERED: PRVHFAIN INH (15:25)
[2017-08-26] MEDS ORDERED: ERGO500037 PO (15:25)
[2017-08-26] MEDS ORDERED: WARF5TAB7 PO (15:25)
[2017-08-26 15:40] LABS: INFLUENZA A PCR Neg for Influ A (NEG); INFLUENZA B PCR Neg for Influ B (NEG)
--- NOTE | 2017-08-26 16:47 | DIAGNOSTIC IMAGING REPORT ---
(CHEST FOR PE) ANGIO WITH CLINICAL HISTORY: 67 years-old Female presenting with ^CHEST PAIN--IF ABLE PLEASE EVALUATE THORACIC AORTA WELL. TECHNIQUE: Multidetector CT angiography of the chest was performed after administration of intravenous contrast. 3-D volumetric and/or maximum intensity projection (MIP) images were subsequently reconstructed for review. IV contrast: 98 mL of Optiray 320. A dose lowering technique was used consistent with the principles of ALARA (as low as reasonably achievable). COMPARISON: Chest x-ray performed earlier the same day. CT DOSE (mGy.cm): The estimated cumulative dose is 858.45 mGy.cm. 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 Pulmonary vasculature: The study is suboptimal for the assessment of the pulmonary vascular tree secondary to timing of the contrast bolus and respiratory motion artifact. Allowing for limited image quality, no central filling defect to suggest pulmonary embolus. Main pulmonary artery is not enlarged. No flattening of the interventricular septum. No intracardiac filling defect. Reflux of contrast into the IVC and hepatic veins. Remaining chest: On soft tissue windows, normal thyroid and thoracic inlet. No axillary, supraclavicular, hilar, or mediastinal lymphadenopathy. Normal aorta. Mild multichamber enlargement of the heart. No pericardial or pleural effusion. Hepatic steatosis. On lung windows, minimal dependent changes likely atelectasis. No other focal nodule or infiltrate. Airways patent. Evaluate in of the lung parenchyma is limited by motion artifact relating to respiration. On bone windows, degenerative changes of the spine. IMPRESSION: 1. Allowing for suboptimal image quality, no evidence of pulmonary embolus. No acute intrathoracic pathology. 2. Reflux of contrast into the IVC and hepatic veins suggests elevated right heart pressure. 3. Hepatic steatosis. Electronically signed by: Rojelio Andersen M.D. 08/26/2017 4:46 PM Dictated Date/Time: 08/26/2017 4:41 PM
[2017-08-26 17:15] VITALS: BP 139/90; PULSE 87; O2SAT 95
[2017-08-26] MEDS ORDERED: HYDR5SYP11 PO (17:41)
== END 2017-08-26 18:09 | disposition home or self-care (01) ==
LOC: C.EDB 14:12
DX: J20.9 Acute bronchitis, unspecified (principal); J44.1 Chronic obstructive pulmonary disease with (acute) exacerbation; J45.909 Unspecified asthma, uncomplicated; E11.9 Type 2 diabetes mellitus without complications; Z86.718 Personal history of other venous thrombosis and embolism; I10 Essential (primary) hypertension; Z87.01 Personal history of pneumonia (recurrent); Z86.711 Personal history of pulmonary embolism; Z80.9 Family history of malignant neoplasm, unspecified; Z83.3 Family history of diabetes mellitus; Z83.79 Family history of other diseases of the digestive system; Z82.49 Family history of ischemic heart disease and other diseases of the circulatory system; Z84.1 Family history of disorders of kidney and ureter; Z83.6 Family history of other diseases of the respiratory system; Z79.899 Other long term (current) drug therapy; Z79.01 Long term (current) use of anticoagulants; Z88.1 Allergy status to other antibiotic agents

== ENCOUNTER 2019-09-19 14:31 | Inpatient (IN) ==
--- OUTSIDE RECORDS SUMMARY | 2019-09-19 14:34 | External Medical Summary | Continuity of Care Document ---
:1950 Author Name Allcathy M.D., Provider Address Unavailable Unavailable , Care Team Providers Name Role Phone Unavailable Unavailable Unavailable RUTH ANN BRIDGES Unavailable Unavailable Unavailable Unavailable Unavailable Problems Epistaxis (784.7) (R04.0) Allergies and Adverse Reactions Erythromycin Derivatives (Allergy) Morphine Derivatives (Allergy) Medications Albuterol Sulfate HFA 108 MCG/ACT AERS; INHALE 2 PUFFS Daily NEEDED , M.D. Refills: 0 Amitriptyline HCl - 100 MG Oral Tablet; TAKE 1 TABLET AT BED TIME. , M.D. Refills: 0 Symbicort 80-4.5 MCG/ACT Inhalation Aerosol; INHALE 2 PUFFS Twice daily , M.D. 6.9 GM Inhaler Refills: 0 Calcium 500/Vitamin D 500-125 MG-UNIT Oral Tablet; ANAND E 1 TABLET 3 times daily , M.D. Refills: 0 Carvedilol 25 MG Oral Tablet; TAKE 1 TABLET TWICE DAILY. , M .D. Refills: 0 Docusate Sodium 100 MG Oral Tablet; TAKE 1 TABLET 4 TIMES DA LUBNA , M.D. Refills: 0 Vitamin D2 TABS; TAKE TABLET TDD:50,000 , M.D. Refills: 0 Luvox 100 MG TABS; Take 1 tablet twice daily , M.D. Refills: 0 glipiZIDE 5 MG Oral Tablet; TAKE 1 TABLET TWICE DAILY. , M.D . Refills: 0 LORazepam 0.5 MG Oral Tablet; TAKE 1 TABLET 3 TIMES A DAY NEEDED , M.D. Refills: 0 Magnesium Oxide 400 MG Oral Tablet; TAKE 1 TABLET 4 TIMES DA LUBNA , M.D. Refills: 0 metFORMIN HCl - 500 MG Oral Tablet; TAKE 1 TABLET TWICE DENNY Y. , M.D. Refills: 0 Omeprazole 20 MG Oral Tablet Delayed Release; Take 1 tablet daily , M.D. Refills: 0 oxyCODONE-Acetaminophen 10-325 MG Oral T ablet; TAKE 1 TABLET 4 TIMES DAILY NEEDED FOR PAIN. , M.D. Refills: 0 Potassium Chloride ER 20 MEQ Oral Tablet Extended Release; TAKE 1 TABLET 3 times daily , M.D. Refills: 0 Lyrica 50 MG Oral Capsule; TAKE 1 CAPSULE Daily , M.D. Refills: 0 QUEtiapine Fumarate 200 MG Oral Tablet; TAKE 1 TABLET DAILY. , M.D. Refills: 0 Simvastatin 20 MG Oral Tablet; TAKE 1 TABLET DAILY. , M.D. 30 Tablet Bottle Refills: 0 Thyroid 65 MG TABS; Take 1 tablet daily , M.D. Refills: 0 Venlafaxine HCl - 37.5 MG Oral Tablet; TAKE 1 TABLET DAILY. , M.D. Refills: 0 Warfarin Sodium TABS , M.D. Refills: 0 Hycodan 5-1.5 MG/5ML SYRP , M.D. Refills: 0 Procedures History of tubal ligation Status: Comple aura History of cardiac catheterization Statu s: Completed Immunizations Immunizations not documented Family History Father Family history of Adverse effect of anesthetic (E938.4 ) (T41.45XA) Status: Active Family history of deafness or hearing loss (V19.2) (Z82.2) S tatus: Active Family history of hypertension (V17.49) (Z82.49) Status: Act shamar Family history of Acute renal disease (593.9) (N28.9) Status : Active Mother Family history of completed stroke (V17.1) (Z82.3) Status: A ctive Grandmother Family history of lung cancer (V16.1) (Z80.1) Status: Active Family history of liver cancer (V16.0) (Z80.0) Status: Activ e Brother Family history of throat cancer (V16.0) (Z80.0) Status: Acti ve aunt Family history of throat cancer (V16.0) (Z80.0) Status: Acti ve Social History - Smoking Status Never smoked tobacco Plan of Treatment Planned Observations Planned Goals not documented Results No Known Results Results not documented
--- OUTSIDE RECORDS SUMMARY | 2019-09-19 14:34 | External Medical Summary | Continuity of Care Document ---
:1950 Author Name Adam MBonnie, Provider Address Unavailable Unavailable , Care Team Providers Name Role Phone Unavailable Unavailable Unavailable RUTH ANN BRIDGES Unavailable Unavailable Unavailable Unavailable Unavailable Problems Epistaxis (784.7) (R04.0) Allergies and Adverse Reactions Erythromycin Derivatives (Allergy) Morphine Derivatives (Allergy) Medications Lyrica 50 MG Oral Capsule; TAKE 1 CAPSULE Daily , M.D. Refills: 0 Potassium Chloride ER 20 MEQ Oral Tablet Extended Release; TAKE 1 TABLET 3 times daily , M.D. Refills: 0 oxyCODONE-Acetaminophen 10-325 MG Oral T ablet; TAKE 1 TABLET 4 TIMES DAILY NEEDED FOR PAIN. , M.D. Refills: 0 Omeprazole 20 MG Oral Tablet Delayed Release; Take 1 tablet daily , M.D. Refills: 0 metFORMIN HCl - 500 MG Oral Tablet; TAKE 1 TABLET TWICE DENNY Y. , M.D. Refills: 0 Magnesium Oxide 400 MG Oral Tablet; TAKE 1 TABLET 4 TIMES DA LUBNA , M.D. Refills: 0 LORazepam 0.5 MG Oral Tablet; TAKE 1 TABLET 3 TIMES A DAY NEEDED , M.D. Refills: 0 glipiZIDE 5 MG Oral Tablet; TAKE 1 TABLET TWICE DAILY. , M.D . Refills: 0 Luvox 100 MG TABS; Take 1 tablet twice daily , M.D. Refills: 0 Docusate Sodium 100 MG Oral Tablet; TAKE 1 TABLET 4 TIMES DA LUBNA , M.D. Refills: 0 Calcium 500/Vitamin D 500-125 MG-UNIT Oral Tablet; ANAND E 1 TABLET 3 times daily , M.D. Refills: 0 Symbicort 80-4.5 MCG/ACT Inhalation Aerosol; INHALE 2 PUFFS Twice daily , M.D. 6.9 GM Inhaler Refills: 0 Amitriptyline HCl - 100 MG Oral Tablet; TAKE 1 TABLET AT BED TIME. , M.D. Refills: 0 Hycodan 5-1.5 MG/5ML SYRP , M.D. Refills: 0 Warfarin Sodium TABS , M.D. Refills: 0 Carvedilol 25 MG Oral Tablet; TAKE 1 TABLET TWICE DAILY. , M .D. Refills: 0 Vitamin D2 TABS; TAKE TABLET TDD:50,000 , M.D. Refills: 0 QUEtiapine Fumarate 200 MG Oral Tablet; TAKE 1 TABLET DAILY. , M.D. Refills: 0 Venlafaxine HCl - 37.5 MG Oral Tablet; TAKE 1 TABLET DAILY. , M.D. Refills: 0 Thyroid 65 MG TABS; Take 1 tablet daily , M.D. Refills: 0 Simvastatin 20 MG Oral Tablet; TAKE 1 TABLET DAILY. , M.D. 30 Tablet Bottle Refills: 0 Albuterol Sulfate HFA 108 MCG/ACT AERS; INHALE 2 PUFFS Daily NEEDED , M.D. Refills: 0 Procedures History of [...]
[2019-09-19] MEDS ORDERED: ALBUT/IPRATROP 3MG/0.5MG NEB 3 ML VIAL INH STA (14:59)
[2019-09-19] MEDS ORDERED: methylPREDNISolone 125 MG/2 ML VIAL IV STA (14:59)
--- NOTE | 2019-09-19 15:23 | XRay Report ---
SINGLE VIEW CHEST CLINICAL HISTORY: Dyspnea. FINDINGS: An AP, portable, upright chest radiograph is compared to study dated 04/09/2018 and correlat ed with chest CT dated 08/26/2017. The heart is top normal for projection. The pulmonary vasculature i s noncongested. Chronic interstitial thickening is similar to previous. Mild consolidative change is suggested in the left upper lobe. No large pleural effusion is identified. No pneumothorax is seen. T he skeletal structures are osteopenic. Degenerative change and chronic posttraumatic deformity is sug gested in the left proximal humerus. IMPRESSION: Question mild left upper lobe consolidation. Correlate clinically for evidence of an infe ctious/inflammatory pneumonitis. Radiographic follow-up to resolution is recommended. ACT 112: Negative or not required by law. Electronically signed by: Jese Goncalves M.D. 09/19/2019 3:22 PM
[2019-09-19 15:29] LABS: Basophils # (auto) 0.04 K/uL (0-0.2); Basophils % (auto) 0.5 %; Eosinophils # (auto) 0.02 K/uL (0-0.5); Eosinophils % (auto) 0.3 %; Hematocrit (blood only) 36.4 % (37-47); Immature Granulocytes # (auto) 0.03 K/uL (0.00-0.02); Immature Granulocytes % (auto) 0.4 %; Lymphocytes # (auto) 2.39 K/uL (1.2-3.4); Lymphocytes % (auto) 32.7 %; Mean Corpuscular Hemoglobin 31.3 pg (25-34); Mean Corpuscular Volume 94.8 fL (80-100); Mean Platelet Volume 10.8 fL (7.4-10.4); Monocytes # (auto) 0.74 K/uL (0.11-0.59); Monocytes % (auto) 10.1 %; Neutrophils # (auto) 4.08 K/uL (1.4-6.5); Platelet Count 158 K/uL (130-400); RDW Standard Deviation 48.4 fL (36.4-46.3); Red Blood Count 3.84 M/uL (4.2-5.4)
[2019-09-19 15:31] LABS: Base Excess VBG 4.6 mEq/L; pH VBG 7.43 (7.36-7.41)
[2019-09-19 15:41] LABS: Partial Thromboplastin Ratio 1.5; Partial Thromboplastin Time 42.6 Seconds (21.0-31.0); Prothrombin Time 20.3 Seconds (9.0-12.0)
[2019-09-19 15:44] LABS: Alanine Aminotransferase 39 U/L (12-78); Albumin Level 3.3 gm/dl (3.4-5.0); Aspartate Aminotransferase 53 U/L (15-37); BUN Creatinine Ratio 15.1 (10-20); Blood Urea Nitrogen 19 mg/dl (7-18); Calcium 8.2 mg/dl (8.5-10.1); Carbon Dioxide 30 mmol/L (21-32); Chloride 98 mmol/L (98-107); Est GFR (African American) 51.7; Est GFR (Non-African American) 44.6; Glucose 71 mg/dl (70-99); Magnesium 1.8 mg/dl (1.8-2.4); Potassium 4.7 mmol/L (3.5-5.1); Sodium 134 mmol/L (136-145)
[2019-09-19 15:49] LABS: Albumin Globulin Ratio 0.8 (0.9-2); Alkaline Phosphatase 62 U/L (45-117); Bilirubin,Total 0.3 mg/dl (0.2-1); Globulin 4.1 gm/dl (2.5-4.0); Total Protein 7.4 gm/dl (6.4-8.2); Troponin I < 0.015 ng/ml (0-0.045)
[2019-09-19] MEDS ORDERED: DOXYCYCLINE HYCLATE 100 MG CAP PO STA (15:57)
[2019-09-19] MEDS ORDERED: cefTRIAXone SODIUM 2,000 MG/70 ML BAG IV STA (15:57)
[2019-09-19] MEDS ORDERED: ACETAMINOPHEN 500 MG TAB PO STA (15:58)
[2019-09-19 16:08] LABS: Influenza B virus by PCR Neg for Influ B (Neg)
--- NOTE | 2019-09-19 16:29 | CT Scan Report ---
CT SCAN OF THE CERVICAL SPINE CLINICAL HISTORY: Trauma. Fall. COMPARISON STUDY: CT of the cervical spine dated 04/09/2018. TECHNIQUE: CT scan of the cervical spine is performed from the skull base to the upper thoracic spine . Images are reviewed in the axial, sagittal, and coronal planes. IV contrast was not administered fo r this examination. A dose lowering technique was utilized adhering to the principles of ALARA. The examination is degraded by large body habitus and by streak artifact from the shoulders. CT DOSE: 2088.74 mGy.cm FINDINGS: Skeletal structures: The skeletal structures are osteopenic. There is no evidence of fracture or subl uxation involving the cervical spine. Vertebral body height is maintained. There is minimal anterolis thesis at C4-C5. Alignment is otherwise preserved. Anterior osteophytes are seen throughout. There is straightening of the cervical lordosis. The odontoid process and lateral masses are intact. The atla ntoaxial articulation is preserved noting mild productive degenerative change. The spinous processes appear intact. There is moderate multilevel cervical spondylosis. Uncovertebral and facet arthropathy contribute to neural foraminal stenosis at several levels. Intervertebral discs: There is moderate disc space narrowing seen at C5-C6 and C6-C7. Mild disc space narrowing is seen at the remaining cervical levels. Central canal: Posterior disc osteophyte complexes at C5-C6 and C6-C7 likely contribute to acquired c ompromise of the central canal. Soft tissues: The prevertebral and paraspinous soft tissues are within normal limits. There is athero sclerotic calcification of the carotid bulbs. Calvarium: The visualized calvarium at the skull base appears intact. Brain parenchyma: Partially visualized brain parenchyma the skull base is within normal limits. Sinuses and mastoids: The visualized paranasal sinuses are clear. The mastoid air cells are well pneu matized. Lung apices: Clear as visualized. IMPRESSION: 1. There is no evidence of fracture or subluxation involving the cervical spine. 2. Osteopenia and spondylotic change as above. ACT 112: Negative or not required by law. Electronically signed by: Jese Goncalves M.D. 09/19/2019 4:28 PM
[2019-09-19] MEDS ORDERED: OSELTAMIVIR PHOSPHATE SUSP 30 MG/5 ML UDP PO SCH (16:30)
--- NOTE | 2019-09-19 16:32 | CT Scan Report ---
CT SCAN OF THE BRAIN WITHOUT IV CONTRAST CLINICAL HISTORY: Fall. COMPARISON STUDY: CT of the brain dated 04/09/2018. TECHNIQUE: Unenhanced axial CT scan of the brain is performed from the vertex to the skull base. A d ose lowering technique was utilized adhering to the principles of ALARA. The patient was scanned twic e due to motion artifact. FINDINGS: Brain parenchyma: The brain parenchyma is normal in appearance. There is no hemorrhage, mass effect, or evidence of acute territorial ischemia by CT criteria. Pagan-white matter differentiation is preser beny. No extra-axial fluid collection is seen. Ventricles, sulci, cisterns: Normal in configuration. Intracranial vasculature: There is atherosclerotic calcification of the cavernous carotid and vertebr al arteries. Calvarium: The skeletal structures are osteopenic. There is no depressed calvarial fracture. Sinuses and mastoids: The visualized paranasal sinuses are clear. The mastoid air cells are well pneu matized. Orbits: The bony orbits are grossly intact. IMPRESSION: No acute intracranial abnormality. ACT 112: Negative or not required by law. Electronically signed by: Jese Goncalves M.D. 09/19/2019 4:30 PM
[2019-09-19] MEDS ORDERED: INFLUENZA ADMINISTRATION CHARGE ONE (17:24)
[2019-09-19] MEDS ORDERED: INFLUENZA VACCINE HIGH DOSE 65+ 0.5 ML SYR IM ONE (17:24)
--- NOTE | 2019-09-19 17:41 | History & Physical Report ---
Date of Service September 19, 2019 Assessment & Plan (1) Left lower lobe pneumonia: Admit to PCU on telemetry, Vital signs every 4 hours, CBC, CMP daily, Replenish electrolytes, Started empirically ceftriaxone 2 g IV in the ER and doxycycline 100 mg twice daily IV, Solu-Medrol 125 mg IV stat, oseltamivir 30 mg p.o. x1 for flu a, DuoNeb x1. DVT prophylaxis continue warfarin home dose which patient is on for DVT and PE Urine culture and blood culture pending, sputum cultures pending. Continue home dose of albuterol HFA 2 puffs daily as needed, continue Symbicort 2 puffs inhalation twice daily. Robitussin for cough Full code Present on Admission?: Yes (2) Influenza A: Started oseltamavir 75 mg in the ER and continue 75 mg p.o. twice daily. Droplet isolation Present on Admission?: Yes (3) COPD exacerbation: As discussed above Present on Admission?: Yes (4) DVT (deep venous thrombosis): Continue warfarin, keep INR between 2 and 3. Monitor PT/INR daily Present on Admission?: Yes (5) Pulmonary embolism: As the above Present on Admission?: Yes (6) Diabetes: Accu-Cheks before meals and at bedtime, sliding scale insulin, continue glargine 19 units twice daily. Hemoglobin A1c pending. Hold hypoglycemic agents while patient is in the hospital metformin and glipizide to prevent hypoglycemia and to prevent kidney injury if patient has to go through radiological studies with contrast. Present on Admission?: Yes (7) Hypertension: Stable, continue torsemide 20 mg p.o. daily, potassium chloride 20 mg p.o. 3 times daily, carvedilol 25 mg p.o. twice daily. Present on Admission?: Yes (8) Depression: Stable,Continue sertraline 50 mg p.o. daily. Continue Seroquel 200 mg p.o. daily Continue lorazepam 0.5 mg p.o. 3 times daily as needed for anxiety and agitation. Continue fluvoxamine 100 mg p.o. twice daily. (9) GERD (gastroesophageal reflux disease): Stable, continue omeprazole 20 mg p.o. twice daily. (10) Chronic lower back pain: Stable, continue pregabalin 50 mg p.o. 3 times daily, trazodone 100 mg p.o. nightly Present on Admission?: Yes (11) Constipation, acute: Stable,Continue docusate sodium 100 mg p.o. twice daily as needed for constipation. Present on Admission?: Yes (12) Osteoporosis: Continue calcium carbonate vitamin D3 1 tablet p.o. 3 times daily. Present on Admission?: Yes History of Present Illness Chief Complaint: Shortness of breath Primary Care Provider: Noni Allan MD The patient is a 69 years old female with past medical history of deep venous thrombosis and pulmonary embolism on warfarin, diabetes mellitus type 2, hypertension, COPD who was brought to the emergency room by EMS with a complaint of an episode of a fall beginning this morning. Patient fell out of that and her right knee hurts. The patient reports neck pain and headache. Patient is taking Coumadin for DVT and pulmonary embolism. Patient reports wheezes and shortness of breath. Patient intermittently uses oxygen at home for COPD. Now patient feels that she needs oxygen 24/7. Patient also has dry cough which is irritating her. Patient reports that she did not take anything for her shortness of breath and wheezes except for her regular medication which did not give her relief. Patient reports subjective fever. Patient denies headache, chills, chest pain, abdominal pain, frequency, urgency, syncope, near syncope. Patient denies recent travel or sick contact. Labs are reviewed: WBC 7.3, hemoglobin 12, hematocrit 36.4, platelets 158, PT 20.3, INR 2. PTT ratio 1.5, VBG pH 7.43, PCO2 246, PO2 60, HCO3 30, O2 saturation 90, VBG base excess 4.6, sodium 134, potassium 4.7, chloride 98, carbon dioxide 30, anion gap 5, BUN 19, creatinine 1.24 and baseline since 2018 is 1.37, GFR 44.6, glucose 71, calcium 8.2, magnesium 1.8, AST 53, ALT 39, alkaline phosphatase 62, troponin 0.015, total protein 7.4, albumin 3.3, globulin 4.1, albumin globulin ratio 0.8, TSH pending, influenza A is positive and influenza B is negative. Chest x-ray shows questionable mild left upper lobe consolidation. The pulmonary vasculature is non-congested. Chronic interstitial thickening is similar to previous studies in April 09, [address] of the chest done August 26, 2017. Mild congestive change is suggested in the left upper lobe. No large pleural effusion is identified. No pneumothorax is seen. The skeletal structures are osteopenic. Degenerative change and chronic posttraumatic deformities is suggested in the left proximal humerus. CT scan of the head shows no acute abnormalities. Cervical spine shows no evidence of fracture or subluxation involving the cervical spine. Osteopenia and spondylotic change and moderate disc space narrowing in C5-C6, C6-C7.posterior osteophytes complexes C5-C6 and C6-C7 likely contributed to acquired compromise of the central canal. The decision was made to admit patient to PCU on telemetry for pneumonia and influenza A. Allergies Allergy/AdvReac Type Severity Reaction Status Date / Time erythromycin base AdvReac Intermediate N/V Verified 09/19/19 16:42 Home Medications Home Medications Medication Instructions Recorded Confirmed Type albuterol sulfate [Ventolin HFA] 2 puff INHALATION DAILY PRN 04/09/18 09/19/19 History budesonide-formoterol [Symbicort] 2 puff INHALATION BID 04/09/18 09/19/19 History calcium carbonate-vitamin D3 1 tab PO TID 04/09/18 09/19/19 History [Os-Federico 500 + D3] cyanocobalamin (vitamin B-12) 1,000 mcg PO DAILY 04/09/18 09/19/19 History [Vitamin B-12] docusate sodium 100 mg PO BID PRN 04/09/18 09/19/19 History glipizide 5 mg PO BID 04/09/18 09/19/19 History lorazepam 0.5 mg PO TID PRN 04/09/18 09/19/19 History magnesium oxide 400 mg PO QID 04/09/18 09/19/19 History metformin 500 mg PO BIDM 04/09/18 09/19/19 History omeprazole 20 mg PO BID 04/09/18 09/19/19 History oxycodone-acetaminophen 1 tab PO Q4H PRN 04/09/18 09/19/19 History potassium chloride 20 meq PO TID 04/09/18 09/19/19 History pregabalin 50 mg PO TID 04/09/18 09/19/19 History simvastatin 20 mg PO PM 04/09/18 09/19/19 History warfarin [Coumadin] 2 mg PO Q OTHER DAY 04/09/18 09/19/19 History warfarin [Coumadin] 5 mg PO DAILY 04/09/18 09/19/19 History carvedilol 25 mg PO BID 09/19/19 09/19/19 History fluvoxamine 100 mg PO BID 09/19/19 09/19/19 History insulin glargine [Lantus U-100 40 unit SUBCUT BID 09/19/19 09/19/19 History Insulin] levothyroxine 50 mcg PO QAM 09/19/19 09/19/19 History quetiapine 200 mg PO DAILY 09/19/19 09/19/19 History sertraline 50 mg PO DAILY 09/19/19 09/19/19 History torsemide 20 mg PO DAILY 09/19/19 09/19/19 History trazodone 100 mg PO HS 09/19/19 09/19/19 History Past Med/Surg History Medical History Asthma (Chronic) Bronchitis (Resolved) Diabetes (Chronic) DVT (deep venous thrombosis) (Resolved) Hypertension (Chronic) Pneumonia (Resolved) Pulmonary embolism (Resolved) Family History Other No pertinent family history Social History Preferred Language: French Communication Ability: Effective Visual Impairment: No Limitations Hearing Ability: Normal Technology Strategist Required: No Beliefs That Will Affect Care: None Current Living Situation: Alone current occupational status: retired Other Information That Helps Us Care for You: No Feels Safe at Home: Yes Safety Concerns: Feels Safe At This Time Smoking Status: Never smoker Do You Dip or Chew Tobacco: No ; Second Hand Exposure: No ; Tobacco Cessation Education Requested by Patient: No Hx Alcohol Use: No Hx Substance Use: No Review of Systems Review of Systems: All systems reviewed & are unremarkable except as noted in HPI & below Physical Exam Constitutional: WD/WN, vitals as above well developed and + ill appearing Eyes: PERRL, conjunctivae normal, anicteric sclerae ENMT: external ear and nose normal, oropharynx normal Neck: trachea midline, no thyromegaly Respiratory: + respiratory distress, + labored breathing, + uses accessory muscles, + tachypneic and + nasal flaring Auscultation: + crackles and + wheezes Cardiovascular: RRR, no murmur, no edema Gastrointestinal (Abdomen): normal bowel sounds, soft, nontender, no hepatosplenomegaly Musculoskeletal: no cyanosis or clubbing, extremities motor strength 5/5 Skin: no rashes, warm and dry Neurologic: patellar DTR's 2+ bilat, sensation intact Psychiatric: A+Ox3, euthymic affect Lymphatic: no cervical or axillary lymphadenopathy Results & Data Vital Signs (Past 12 Hours) Vital Signs Temp Pulse Pulse Resp BP BP Pulse Ox 09/19/19 16:32 71 16 119/54 L 97 09/19/19 15:30 72 18 94 09/19/19 14:59 95 09/19/19 14:37 36.9 C 74 22 110/69 91 Code Status & VTE Plan Code Status Full code VTE Prophylaxis Plan VTE Prophylaxis will be ordered: Yes PG Care Time/CCT Total # of Minutes Spent Total Time Spent with Patient: Total time spent is greater than 50% in coordination of care (as documented) at patient's floor/unit and/or counseling patient: Coding Level of Care Code 20818 Initial Inpt Care Lvl 3 Diagnoses Left lower lobe pneumonia J11.00 Pneumonia type: due to influenza A virus Influenza A J10.1 COPD exacerbation J44.1 DVT (deep venous thrombosis) I82.409 Pulmonary embolism I26.99 Diabetes E11.9 Hypertension I10 Depression F32.9 GERD (gastroesophageal reflux disease) K21.9 Chronic lower back pain M54.5; G89.29 Constipation, acute K59.00 Osteoporosis M81.0 (1) Left lower lobe pneumonia Pneumonia type: due to influenza A virus Qualified Code(s): J11.00 - Influenza due to unidentified influenza virus with unspecified type of pneumonia
[2019-09-19] MEDS ORDERED: POLYETHYLENE (MIRALAX) 17 GM PACK PO PRN (18:06)
[2019-09-19] MEDS ORDERED: ACETAMINOPHEN 325 MG TAB PO PRN (18:06)
[2019-09-19] MEDS ORDERED: LORazepam 0.5 MG TAB PO PRN (18:06)
[2019-09-19] MEDS ORDERED: ALBUTEROL HFA 8 GM INHALER INH PRN (18:06)
[2019-09-19] MEDS ORDERED: SODIUM CHLORIDE 0.9% 1000ML 500 ML IV SCH (18:06)
[2019-09-19] MEDS: OXYCODONE/ACETAMINOPHEN 10-325 TAB PO PRN (18:19)
[2019-09-19] MEDS ORDERED: GLUCAGON FOR INJ 1 MG VIAL SQ PRN (18:49)
[2019-09-19] MEDS ORDERED: GLUCOSE 10 TABS/TUBE PO PRN ×2 (18:49→19:00)
[2019-09-19] MEDS ORDERED: GLUCOSE 40% GEL 15 GM TUBE PO PRN ×2 (18:49→19:00)
[2019-09-19] MEDS ORDERED: DEXTROSE 50% 50 ML SYRINGE IV PRN ×2 (18:49→19:00)
[2019-09-19] MEDS ORDERED: CARBOHYDRATES FOR HYPOGLYCEMIA PO PRN ×2 (18:49→19:00)
[2019-09-19] MEDS ORDERED: GLUCAGON FOR INJ 1 MG VIAL IM PRN (19:00)
[2019-09-19] MEDS: TRAZODONE HCL 100 MG TAB PO SCH (20:27)
[2019-09-19] MEDS: FLUVOXAMINE MALEATE 50 MG TAB PO SCH (20:27)
[2019-09-19] MEDS: POTASSIUM CHLORIDE 20 MEQ TABCR PO SCH (20:27)
[2019-09-19] MEDS: PANTOprazole 40 MG TAB PO SCH (20:27)
[2019-09-19] MEDS: WARFARIN SOD 5 MG TAB PO SCH (20:27)
[2019-09-19] MEDS: SIMVASTATIN 20 MG TAB PO SCH (20:27)
[2019-09-19] MEDS: carvediloL 25 MG TAB PO SCH (20:27)
[2019-09-19] MEDS: MAGNESIUM OXIDE 400 MG TAB PO SCH (20:28)
[2019-09-19] MEDS: CALCIUM 600MG + VIT D 400 IU TAB PO SCH (20:28)
[2019-09-19] MEDS: INSULIN GLARGINE SOLOSTAR 100 UNITS/ML 3 ML PEN SC SCH (20:29)
[2019-09-19] MEDS: PREGABALIN 50 MG CAP PO SCH (20:34)
[2019-09-19] MEDS ORDERED: LANTUS PER UNIT CHARGE SQ SCH (21:00)
--- NOTE | 2019-09-19 21:35 | Emergency Department Note ---
Entered by Suyapa Kim acting as a scribe for Xander Johnson M.D. History of Present Illness General Chief complaint: Shortness of Breath/Dyspnea Stated complaint: DIFFICUTLY BREATHING - CHEST PAIN - HEADACHE Time Seen by Provider: 09/19/19 14:43 Source: patient and family (grand-daughter) History of Present Illness Onset (ago): day(s) 2 Location: mouth (shortness of breath) Pain Consistency: + other (worsening) Maximum Pain Intensity: 10 Relieved By: not by other (tessalon perles ) Exacerbated By: + other (shortness of breath worsened by cough) Associated symptoms: + shortness of breath and + other (nasal congestions, and leg swelling); no fever/chills and no nausea/vomiting The patient is a 69 year old F who presents to the Emergency Room with complaints of worsening shortness of breath that started 2 days ago. The majority of the HPI was provided by the patients grand-daughter. The patients grand-daughter states that one week ago, the patient started to experience a dry cough. She notes that the patient then started to experience a wet cough and dizziness. She states that the patient fell when she got up to go to the bathroom, 2 days ago, due to her dizziness. The patient notes that she hit the side of her face on her dresser. The patients grand-daughter adds that the patients coughing worsened 2 days ago. She notes that the patient has been taking tessalon perles to no relief. She adds that the patient is producing green mucous with her cough. She states that the patient is also currently experiencing shortness of breath, nasal congestions, and leg swelling. The patient notes that her coughing fits are worsening her shortness of breath. She adds that it hurts to breathe in. She states that when she was started on 3L of oxygen in the ED, it helped her shortness of breath. She notes that she is not on oxygen at home. She denies currently experiencing any fevers and vomiting. She adds that she has not been eating well due to her symptoms. The patients grand-daughter notes that the last time the patient had these symptoms, 10 months ago, the patient was diagnosed with bronchitis and pn eumonia. She adds that the patients relative is sick with strep throat. She states that the patient has a history of asthma, COPD, and dementia. The patient notes that she has been using her rescue inhaler and nebulizer. She denies using a c-pap machine at night. She adds that she is on Coumadin. She also denies a history of smoking. She notes that she does not travel. Home Medications Home Medications Medication Instructions Recorded Confirmed Type albuterol sulfate [Ventolin HFA] 2 puff INHALATION DAILY PRN 04/09/18 09/19/19 History budesonide-formoterol [Symbicort] 2 puff INHALATION BID 04/09/18 09/19/19 Histor y calcium carbonate-vitamin D3 1 tab PO TID 04/09/18 09/19/19 History [Os-Federico 500 + D3] cyanocobalamin (vitamin B-12) 1,000 mcg PO DAILY 04/09/18 09/19/19 History [Vitamin B-12] docusate sodium 100 mg PO BID PRN 04/09/18 09/19/19 History glipizide 5 mg PO BID 04/09/18 09/19/19 History lorazepam 0.5 mg PO TID PRN 04/09/18 09/19/19 History magnesium oxide 400 mg PO QID 04/09/18 09/19/19 History metformin 500 mg PO BIDM 04/09/18 09/19/19 History omeprazole 20 mg PO BID 04/09/18 09/19/19 History oxycodone-acetaminophen 1 tab PO Q4H PRN 04/09/18 09/19/19 History potassium chloride 20 meq PO TID 04/09/18 09/19/19 History pregabalin 50 mg PO TID 04/09/18 09/19/19 History simvastatin 20 mg PO PM 04/09/18 09/19/19 History warfarin [Coumadin] 2 mg PO Q OTHER DAY 04/09/18 09/19/19 History warfarin [Coumadin] 5 mg PO DAILY 04/09/18 09/19/19 History carvedilol 25 mg PO BID 09/19/19 09/19/19 History fluvoxamine 100 mg PO BID 09/19/19 09/19/19 History insulin glargine [Lantus U-100 40 unit SUBCUT BID 09/19/19 09/19/19 History Insulin] levothyroxine 50 mcg PO QAM 09/19/19 09/19/19 History quetiapine 200 mg PO DAILY 09/19/19 09/19/19 History sertraline 50 mg PO DAILY 09/19/19 09/19/19 History torsemide 20 mg PO DAILY 09/19/19 09/19/19 History trazodone 100 mg PO HS 09/19/19 09/19/19 History Allergies Allergy/AdvReac Type Severity Reaction Status Date / Time erythromycin base AdvReac Intermediate N/V Verified 09/19/19 16:42 Past Med/Surg History Medical History Asthma (Chronic) Bronchitis (Resolved) Diabetes (Chronic) DVT (deep venous thrombosis) (Resolved) Hypertension (Chronic) Pneumonia (Resolved) Pulmonary embolism (Resolved) Family History Other No pertinent family history Social History Preferred Language: Occitan Communication Ability: Effective Visual Impairment: No Limitations Hearing Ability: Normal Security Risk Analyst Required: No Beliefs That Will Affect Care: None Current Living Situation: Alone current occupational status: retired Other Information That Helps Us Care for You: No Feels Safe at Home: Yes Safety Concerns: Feels Safe At This Time Smoking Status: Never smoker Do You Dip or Chew Tobacco: No ; Second Hand Exposure: No ; Tobacco Cessation Education Requested by Patient: No Hx Alcohol Use: No Hx Substance Use: No Review of Systems See HPI for pertinent positives & negatives. and A total of 10 systems reviewed and were otherwise negative Physical Exam Vital Signs Vital Signs - 24 hr 09/19/19 14:32 09/19/19 14:37 09/19/19 14:59 Temperature 36.9 C Temperature Source Oral Pulse Rate 74 Pulse Rate [Apical] Pulse Rhythm [Apical] Pulse Strength [Apical] Respiratory Rate 22 Respiratory Effort / Characteristics Non-Labored Spontaneous Non-Labored Respiratory Depth Normal Normal Respiratory Pattern Regular Blood Pressure 110/69 Blood Pressure [Right Arm] Blood Pressure Mean 82 Blood Pressure Mean [Right Arm] Blood Pressure Position [Right Arm] Pulse Oximetry 91 95 Oxygen Delivery Method Room Air Room Air Nasal Cannula Oxygen Flow Rate 92 1.5 Sepsis Recent Fever Within 48 Hours No Sepsis New/Unexplained Change in Mental Status No Sepsis Action Taken by Nursing No Action Required 09/19/19 15:30 09/19/19 16:32 Temperature Temperature Source Pulse Rate Pulse Rate [Apical] 72 71 Pulse Rhythm [Apical] Regular Pulse Strength [Apical] Normal Respiratory Rate 18 16 Respiratory Effort / Characteristics Spontaneous Non-Labored Spontaneous Respiratory Depth Normal Respiratory Pattern Regular Blood Pressure Blood Pressure [Right Arm] 119/54 L Blood Pressure Mean Blood Pressure Mean [Right Arm] 75 Blood Pressure Position [Right Arm] Lying Pulse Oximetry 94 97 Oxygen Delivery Method Nasal Cannula Nasal Cannula Oxygen Flow Rate 2 2 Sepsis Recent Fever Within 48 Hours Sepsis New/Unexplained Change in Mental Status Sepsis Action Taken by Nursing GENERAL: Awake, alert, fatigued-appearing HENT: Normocephalic. Bruising on right lateral eye. Oropharynx unremarkable. EYES: Normal conjunctiva. Sclera non-icteric. PERRL, EOMI RESPIRATORY: Patient is coughing. Expiratory wheezing. Diminished at bases. Mildly increased work of breathing. CARDIAC: Normal rate. Normal rhythm. Extremities warm and well perfused. GI: Soft, non-distended. No tenderness to palpation. No rebound or guarding. MUSCULOSKELETAL: Atraumatic. Chest examination reveals no tenderness. LOWER EXTREMITIES: Calves are equal size bilaterally and non-tender. No edema NEURO: Normal sensorium. No sensory or motor deficits noted. No facial droop. SKIN: Warm and dry. No rash or jaundice noted. Course Course 1448: The patient was evaluated in room C6. A complete history and physical exam was performed. 1635: I updated the patient on her test results and the plan for admission. 1638: I reviewed the patient's case with Dr. Coombs, [facility] Hospitalist. She will evaluate the patient for further management. Administered Medications Carvedilol (Coreg) 25 mg PO BID NAGI Stop: 10/19/19 20:59 Last Admin: 09/19/19 20:27 Dose: 25 mg Documented by: [id number] Fluvoxamine Maleate (Luvox) 100 mg PO BID NAGI Stop: 10/19/19 20:59 Last Admin: 09/19/19 20:27 Dose: 100 mg Documented by: [id number] Sodium Chloride (Nss 1000ml) 500 mls @ 80 mls/hr IV .Q6H15M NAGI Stop: 09/20/19 00:20 Last Admin: 09/19/19 18:59 Dose: 80 mls/hr Documented by: [id number] Insulin Glargine (Lantus Solostar Pen) 19 units SC BID NAGI Stop: 10/19/19 20:59 Last Admin: 09/19/19 20:29 Dose: 19 units Documented by: [id number] Cosigned by: [id number] Magnesium Oxide (Mag-Ox) 400 mg PO QID NAGI Stop: 10/19/19 20:59 Last Admin: 09/19/19 20:28 Dose: 400 mg Documented by: [id number] Multivitamins/Minerals (Caltrate Plus) 1 tab PO TID NAGI Stop: 10/19/19 20:59 Last Admin: 09/19/19 20:28 Dose: 1 tab Documented by: [id number] Oxycodone/Acetaminophen (Percocet 10/325mg) 1 tab PO Q4H PRN PRN Reason: Pain Stop: 10/03/19 18:05 Last Admin: 09/19/19 18:19 Dose: 1 tab Documented by: [id number] Pantoprazole Sodium (Protonix) 40 mg PO BID NAGI Stop: 10/19/19 20:59 Last Admin: 09/19/19 20:27 Dose: 40 mg Documented by: [id number] Potassium Chloride (Klor-Con M20) 20 meq PO TIDM NAGI Stop: 10/19/19 18:59 Last Admin: 09/19/19 20:27 Dose: 20 meq Documented by: [id number] Pregabalin (Lyrica) 50 mg PO TID NAGI Stop: 10/19/19 20:59 Last Admin: 09/19/19 20:34 Dose: 50 mg Documented by: [id number] Simvastatin (Zocor) 20 mg PO PM NAGI Stop: 10/19/19 20:59 Last Admin: 09/19/19 20:27 Dose: 20 mg Documented by: [id number] Trazodone HCl (Desyrel) 100 mg PO HS NAGI Stop: 10/19/19 20:59 Last Admin: 09/19/19 20:27 Dose: 100 mg Documented by: [id number] Warfarin Sodium (Coumadin) 5 mg PO DAILY@1600 NAGI Stop: 10/19/19 19:59 Last Admin: 09/19/19 20:27 Dose: 5 mg Documented by: [id number] Discontinued Medications Acetaminophen (Tylenol) 1,000 mg PO NOW STA Stop: 09/19/19 15:59 Last Admin: 09/19/19 16:21 Dose: 1,000 mg Documented by: [id number] Albuterol (Duoneb) 12 ml INH ONE STA Stop: 09/19/19 15:00 Last Admin: 09/19/19 15:30 Dose: 12 ml Documented by: [id number] Doxycycline Hyclate (Vibramycin) 100 mg PO NOW STA Stop: 09/19/19 15:58 Last Admin: 09/19/19 16:21 Dose: 100 mg Documented by: [id number] Ceftriaxone Sodium (Rocephin) 2,000 mg in 70 mls @ 140 mls/hr IV NOW STA Stop: 09/19/19 16:26 Last Infusion: 09/19/19 17:13 Dose: 0 mls/hr Documented by: [id number] Admin: 09/19/19 16:21 Dose: 140 mls/hr Documented by: [id number] Methylprednisolone (Solumedrol) 125 mg IV NOW STA Stop: 09/19/19 15:00 Last Admin: 09/19/19 15:41 Dose: 125 mg Documented by: [id number] Oseltamivir Phosphate (Tamiflu) 30 mg PO ONCE NAGI; Protocol Stop: 09/24/19 16:29 Last Admin: 09/19/19 17:04 Dose: 30 mg Documented by: [id number] Medical Decision Making Differential Diagnosis Differential diagnoses includes but is not limited to pneumonia, bronchitis, COPD/Asthma exacerbation, pneumothorax, pulmonary embolism, congestive heart failure, acute coronary syndrome Medical Records Attestation: I reviewed the patient's medical records. Home Medications Current Medication List: was personally reviewed by me Laboratory Data Attestation: I reviewed the patient's lab results. Result diagrams: 09/19/19 15:21 09/19/19 15:21 Lab Results 09/19/19 09/19/19 09/19/19 Range/Units 15:19 15:21 15:21 WBC 7.30 (4.8-10.8) K/uL RBC 3.84 L (4.2-5.4) M/uL Hgb 12.0 (12.0-16.0) g/dL Hct 36.4 L (37-47) % MCV 94.8 (80-100) fL MCH 31.3 (25-34) pg MCHC 33.0 (32-36) g/dL RDW Std Deviation 48.4 H (36.4-46.3) fL RDW Coeff of Felecia 14.0 (11.5-14.5) % Plt Count 158 (130-400) K/uL MPV 10.8 H (7.4-10.4) fL Immature Gran % (Auto) 0.4 % Neut % (Auto) 56.0 % Lymph % (Auto) 32.7 % Eddy % (Auto) 10.1 % Eos % (Auto) 0.3 % Baso % (Auto) 0.5 % Immature Gran # (Auto) 0.03 H (0.00-0.02) K/uL Neut # (Auto) 4.08 (1.4-6.5) K/uL Lymph # (Auto) 2.39 (1.2-3.4) K/uL Eddy # (Auto) 0.74 H (0.11-0.59) K/uL Eos # (Auto) 0.02 (0-0.5) K/uL Baso # (Auto) 0.04 (0-0.2) K/uL PT 20.3 H (9.0-12.0) Seconds INR 2.0 H (0.9-1.1) APTT 42.6 H (21.0-31.0) Seconds PTT Ratio 1.5 VBG pH (7.36-7.41) VBG pCO2 (38-50) mmHg VBG pO2 mmHg VBG HCO3 mmol/L VBG O2 Saturation % VBG Base Excess mEq/L Barometric Pressure mm/Hg Sodium (136-145) mmol/L Potassium (3.5-5.1) mmol/L Chloride (98-107) mmol/L Carbon Dioxide (21-32) mmol/L Anion Gap (3-11) BUN (7-18) mg/dl Creatinine (0.6-1.2) mg/dl Est Cr Clr Drug Dosing Est GFR ( Amer) Est GFR (Non-Af Amer) BUN/Creatinine Ratio (10-20) Glucose (70-99) mg/dl Calcium (8.5-10.1) mg/dl Magnesium (1.8-2.4) mg/dl Total Bilirubin (0.2-1) mg/dl AST (15-37) U/L ALT (12-78) U/L Alkaline Phosphatase (45-117) U/L Troponin I (0-0.045) ng/ml Total Protein (6.4-8.2) gm/dl Albumin (3.4-5.0) gm/dl Globulin (2.5-4.0) gm/dl Albumin/Globulin Ratio (0.9-2) Procalcitonin (0-0.5) ng/ml TSH (0.300-4.500) uIu/ml Influenza Type A (PCR) Pos for Influ A A* (Neg) Influenza Type B (PCR) Neg for Influ B (Neg) 09/19/19 09/19/19 09/19/19 Range/Units 15:21 15:21 15:21 WBC (4.8-10.8) K/uL RBC (4.2-5.4) M/uL Hgb (12.0-16.0) g/dL Hct (37-47) % MCV (80-100) fL MCH (25-34) pg MCHC (32-36) g/dL RDW Std Deviation (36.4-46.3) fL RDW Coeff of Felecia (11.5-14.5) % Plt Count (130-400) K/uL MPV (7.4-10.4) fL Immature Gran % (Auto) % Neut % (Auto) % Lymph % (Auto) % Eddy % (Auto) % Eos % (Auto) % Baso % (Auto) % Immature Gran # (Auto) (0.00-0.02) K/uL Neut # (Auto) (1.4-6.5) K/uL Lymph # (Auto) (1.2-3.4) K/uL Eddy # (Auto) (0.11-0.59) K/uL Eos # (Auto) (0-0.5) K/uL Baso # (Auto) (0-0.2) K/uL PT (9.0-12.0) Seconds INR (0.9-1.1) APTT (21.0-31.0) Seconds PTT Ratio VBG pH 7.43 H (7.36-7.41) VBG pCO2 46 (38-50) mmHg VBG pO2 60 mmHg VBG HCO3 30 mmol/L VBG O2 Saturation 90.0 % VBG Base Excess 4.6 mEq/L Barometric Pressure 740.7 mm/Hg Sodium 134 L (136-145) mmol/L Potassium 4.7 (3.5-5.1) mmol/L Chloride 98 (98-107) mmol/L Carbon Dioxide 30 (21-32) mmol/L Anion Gap 5.0 (3-11) BUN 19 H (7-18) mg/dl Creatinine 1.24 H (0.6-1.2) mg/dl Est Cr Clr Drug Dosing Not Reportable Est GFR ( Amer) 51.7 Est GFR (Non-Af Amer) 44.6 BUN/Creatinine Ratio 15.1 (10-20) Glucose 71 (70-99) mg/dl Calcium 8.2 L (8.5-10.1) mg/dl Magnesium 1.8 (1.8-2.4) mg/dl Total Bilirubin 0.3 (0.2-1) mg/dl AST 53 H (15-37) U/L ALT 39 (12-78) U/L Alkaline Phosphatase 62 (45-117) U/L Troponin I < 0.015 (0-0.045) ng/ml Total Protein 7.4 (6.4-8.2) gm/dl Albumin 3.3 L (3.4-5.0) gm/dl Globulin 4.1 H (2.5-4.0) gm/dl Albumin/Globulin Ratio 0.8 L (0.9-2) Procalcitonin (0-0.5) ng/ml TSH 1.190 (0.300-4.500) uIu/ml Influenza Type A (PCR) (Neg) Influenza Type B (PCR) (Neg) 09/19/19 Range/Units 15:21 WBC (4.8-10.8) K/uL RBC (4.2-5.4) M/uL Hgb (12.0-16.0) g/dL Hct (37-47) % MCV (80-100) fL MCH (25-34) pg MCHC (32-36) g/dL RDW Std Deviation (36.4-46.3) fL RDW Coeff of Felecia (11.5-14.5) % Plt Count (130-400) K/uL MPV (7.4-10.4) fL Immature Gran % (Auto) % Neut % (Auto) % Lymph % (Auto) % Eddy % (Auto) % Eos % (Auto) % Baso % (Auto) % Immature Gran # (Auto) (0.00-0.02) K/uL Neut # (Auto) (1.4-6.5) K/uL Lymph # (Auto) (1.2-3.4) K/uL Eddy # (Auto) (0.11-0.59) K/uL Eos # (Auto) (0-0.5) K/uL Baso # (Auto) (0-0.2) K/uL PT (9.0-12.0) Seconds INR (0.9-1.1) APTT (21.0-31.0) Seconds PTT Ratio VBG pH (7.36-7.41) VBG pCO2 (38-50) mmHg VBG pO2 mmHg VBG HCO3 mmol/L VBG O2 Saturation % VBG Base Excess mEq/L Barometric Pressure mm/Hg Sodium (136-145) mmol/L Potassium (3.5-5.1) mmol/L Chloride (98-107) mmol/L Carbon Dioxide (21-32) mmol/L Anion Gap (3-11) BUN (7-18) mg/dl Creatinine (0.6-1.2) mg/dl Est Cr Clr Drug Dosing Est GFR ( Amer) Est GFR (Non-Af Amer) BUN/Creatinine Ratio (10-20) Glucose (70-99) mg/dl Calcium (8.5-10.1) mg/dl Magnesium (1.8-2.4) mg/dl Total Bilirubin (0.2-1) mg/dl AST (15-37) U/L ALT (12-78) U/L Alkaline Phosphatase (45-117) U/L Troponin I (0-0.045) ng/ml Total Protein (6.4-8.2) gm/dl Albumin (3.4-5.0) gm/dl Globulin (2.5-4.0) gm/dl Albumin/Globulin Ratio (0.9-2) Procalcitonin < 0.05 (0-0.5) ng/ml TSH (0.300-4.500) uIu/ml Influenza Type A (PCR) (Neg) Influenza Type B (PCR) (Neg) Imaging Data Radiologist's Impression: Radiology results as stated below per my review and the radiologist's interpretation: SINGLE VIEW CHEST CLINICAL HISTORY: Dyspnea. FINDINGS: An AP, portable, upright chest radiograph is compared to study dated 04/09/2018 and correlated with chest CT dated 08/26/2017. The heart is top normal for projection. The pulmonary vasculature is noncongested. Chronic interstitial thickening is similar to previous. Mild consolidative change is suggested in the left upper lobe. No large pleural effusion is identified. No pneumothorax is seen. The skeletal structures are osteopenic. Degenerative change and chronic posttraumatic deformity is suggested in the left proximal humerus. IMPRESSION: Question mild left upper lobe consolidation. Correlate clinically for evidence of an infectious/inflammatory pneumonitis. Radiographic follow-up to resolution is recommended. ACT 112: Negative or not required by law. Electronically signed by: Jese Goncalves M.D. 09/19/2019 3:[address] SCAN OF THE BRAIN WITHOUT IV CONTRAST CLINICAL HISTORY: Fall. COMPARISON STUDY: CT of the brain dated 04/09/2018. TECHNIQUE: Unenhanced axial CT scan of the brain is performed from the vertex to the skull base. A dose lowering technique was utilized adhering to the principles of ALARA. The patient was scanned twice due to motion artifact. FINDINGS: Brain parenchyma: The brain parenchyma is normal in appearance. There is no hemorrhage, mass effect, or evidence of acute territorial ischemia by CT criteria. Pagan-white matter differentiation is preserved. No extra-axial fluid collection is seen. Ventricles, sulci, cisterns: Normal in configuration. Intracranial vasculature: There is atherosclerotic calcification of the cavernous carotid and vertebral arteries. Calvarium: The skeletal structures are osteopenic. There is no depressed calvari al fracture. Sinuses and mastoids: The visualized paranasal sinuses are clear. The mastoid air cells are well pneumatized. Orbits: The bony orbits are grossly intact. IMPRESSION: No acute intracranial abnormality. ACT 112: Negative or not required by law. Electronically signed by: Jese Goncalves M.D. 09/19/2019 4:[address] SCAN OF THE CERVICAL SPINE CLINICAL HISTORY: Trauma. Fall. COMPARISON STUDY: CT of the cervical spine dated 04/09/2018. TECHNIQUE: CT scan of the cervical spine is performed from the skull base to the upper thoracic spine. Images are reviewed in the axial, sagittal, and coronal planes. IV contrast was not administered for this examination. A dose lowering technique was utilized adhering to the principles of ALARA. The examination is degraded by large body habitus and by streak artifact from the shoulders. CT DOSE: 2088.74 mGy.cm FINDINGS: Skeletal structures: The skeletal structures are osteopenic. There is no evidence of fracture or subluxation involving the cervical spine. Vertebral body height is maintained. There is minimal anterolisthesis at C4-C5. Alignment is otherwise preserved. Anterior osteophytes are seen throughout. There is straightening of the cervical lordosis. The odontoid process and lateral masses are intact. The atlantoaxial articulation is preserved noting mild productive degenerative change. The spinous processes appear intact. There is moderate multilevel cervical spondylosis. Uncovertebral and facet arthropathy contribute to neural foraminal stenosis at several levels. Intervertebral discs: There is moderate disc space narrowing seen at C5-C6 and C6-C7. Mild disc space narrowing is seen at the remaining cervical levels. Central canal: Posterior disc osteophyte complexes at C5-C6 and C6-C7 likely contribute to acquired compromise of the central canal. Soft tissues: The prevertebral and paraspinous soft tissues are within normal limits. There is atherosclerotic calcification of the carotid bulbs. Calvarium: The visualized calvarium at the skull base appears intact. Brain parenchyma: Partially visualized brain parenchyma the skull base is within normal limits. Sinuses and mastoids: The visualized paranasal sinuses are clear. The mastoid air cells are well pneumatized. Lung apices: Clear as visualized. IMPRESSION: 1. There is no evidence of fracture or subluxation involving the cervical spine. 2. Osteopenia and spondylotic change as above. ACT 112: Negative or not required by law. Electronically signed by: Jese Goncalves M.D. 09/19/2019 4:28 PM ECG Data Attestation: I personally reviewed and interpreted this ECG as follows: Indication: + SOB/dyspnea Rate (beats per minute): 73 Rhythm: + sinus rhythm ECG Intervals/blocks: + Normal QT-c ECG [place]: + Normal ECG ST segments: no ST depression and no ST elevation ECG Findings: no PVCs Blood Pressure Blood Pressure Findings: Elevated blood pressure Blood Pressure Disposition: further management by hospitalist Head Trauma GCS Score: 15 MDM Narrative Continuous Cardiac Monitoring: An order was placed for continuous cardiac m onitoring. The monitor shows a rate of 71 with NSR Patient is a 69-year-old female with a history of PE, diabetes, hypertension, asthma and COPD currently maintained on Coumadin presenting today complaining of headache, chest pain, and some difficulty breathing with productive cough. No significant travel reported. Patient states increase shortness of breath over the past week and with some yellow sputum. Afebrile upon arrival. No significant tachycardia noted. Patient's oxygen level is on room air flirting at 89%. No history of oxygen requirement. Patient states she has been feeling dizzy and falling secondary to some coughing spells and did strike the right side of her head with some bruising on the right lateral eye several days ago. CT the head was this complete exclude traumatic injury. Doubt injury to the cervical spine via Nexus criteria. Significant cough. Doubt PE with her anticoagulation. Lower suspicion for dissection. Chest x-ray completed influenza testing was sent. Basic labs obtained. Concern for possible orchitis, pneumonia, COPD/asthma exacerbation. Given some steroid and a DuoNeb given her history of reactive airway disease. Is somewhat wheezy on exam. Patient without significant leukocytosis and INR is therapeutic. No significant hypercarbia. Renal function seems similar to baseline. Patient does however again seem to have a bit of an oxygen requirement and x-ray has some concerning findings for left upper lobe consolidation. Clinically will treat this as pneumonia at this time. Given a dose of ceftriaxone and doxycycline. Patient is positive for influenza A. Renally dosed Tamiflu given. Doubt rib fractures believe her right back pain is more related to work of breathing and coughing. Given some Tylenol for pain. Believe the patient would be best monitored here in the hospital given her deconditioned state and weakness. Discussed with the hospitalist. Patient was in agreement. Sputum culture ordered. Impression & Plan Left lower lobe pneumonia, Influenza A, COPD exacerbation Discharge Plan Visit Data *Final* Discharge Date/Time: 09/19/19 17:53 Chief Complaint: Shortness of Breath/Dyspnea Stated Complaint: DIFFICUTLY BREATHING - CHEST PAIN - HEADACHE ED Provider: Xander Johnson Discharge Problem: Left lower lobe pneumonia, Influenza A, COPD exacerbation Patient Disposition: Admitted As Inpatient Discharge Instructions Interventions: ED Discharge Assessment Last Done: 09/19/19 17:53 Discharge Problem: Left lower lobe pneumonia Qualifiers: Pneumonia type: due to influenza A virus Qualified Code(s): J11.00 - Influenza due to unidentified influenza virus with unspecified type of pneumonia The scribe's documentation has been prepared under my direction and personally reviewed by me in its entirety. I confirm that the note above accurately reflects all work, treatment, procedures, and medical decision making performed by me.
[2019-09-19] MEDS ORDERED: COUGH DROP (SUGAR FREE) LOZ 24 LOZ/1 BOX BUCCAL STA (22:04)
[2019-09-19] MEDS: INSULIN ASPART 100 UNITS/ML 3 ML PEN SC SCH (22:55)
[2019-09-20 05:37] LABS: Appearance Urine Clear (Clear); Bilirubin Urine Negative (Negative); Blood Urine Negative (Negative); Color Urine Yellow; Glucose Urine UA 2+ (Negative); Ketones Urine Trace (Negative); Leukocyte Esterase Urine Negative (Negative); Nitrite Urine Negative (Negative); Protein Urine Negative (Negative); Specific Gravity Urine 1.013 (1.000-1.030); Urobilinogen Urine Negative (Negative)
[2019-09-20] MEDS: LEVOTHYROXINE SODIUM 50 MCG TABLET PO SCH (05:48)
[2019-09-20] MEDS: GUAIFENESIN/CODEINE 200MG/20MG 10ML UDC PO PRN ×3 (05:51→22:57)
[2019-09-20 05:57] LABS: Hematocrit (blood only) 38.2 % (37-47); Hemoglobin 12.5 g/dL (12.0-16.0); Mean Corpuscular Hemoglobin 30.5 pg (25-34); Mean Corpuscular Hgb Conc 32.7 g/dL (32-36); Mean Corpuscular Volume 93.2 fL (80-100); Mean Platelet Volume 11.5 fL (7.4-10.4); Platelet Count 154 K/uL (130-400); RDW Coefficient of Variation 13.9 % (11.5-14.5); RDW Standard Deviation 47.3 fL (36.4-46.3); White Blood Count 5.31 K/uL (4.8-10.8)
[2019-09-20 06:06] LABS: INR 2.4 (0.9-1.1); Prothrombin Time 24.2 Seconds (9.0-12.0)
[2019-09-20 06:22] LABS: Estimated Average Glucose 163 mg/dl; Hemoglobin A1C 7.3 % (4.5-5.6)
[2019-09-20 06:31] LABS: Albumin Level 3.2 gm/dl (3.4-5.0); BUN Creatinine Ratio 14.5 (10-20); Calcium 8.7 mg/dl (8.5-10.1); Creatinine Clr Calc Pharmacy 48.2 ml/min; Est GFR (African American) 49.3; Est GFR (Non-African American) 42.5; Potassium 5.1 mmol/L (3.5-5.1)
[2019-09-20 06:35] LABS: Albumin Globulin Ratio 0.7 (0.9-2); Bilirubin,Total 0.3 mg/dl (0.2-1); Globulin 4.5 gm/dl (2.5-4.0); Total Protein 7.7 gm/dl (6.4-8.2)
[2019-09-20 06:50] LABS: ANC (manual) 3.55 K/uL (1.4-6.5); Lymphocytes # (manual) 1.61 K/uL (1.2-3.4); Lymphocytes % (manual) 30.4 %; Metamyelocytes # (manual) 0.05 K/uL (0-0); Metamyelocytes % (manual) 0.9 %; Myelocytes # (manual) 0.05 K/uL (0-0); Myelocytes % (manual) 0.9 %; Neutrophils # (manual) 3.55 K/uL (1.4-6.5); Neutrophils % (manual) 66.9 %; Plasma Cells # (manual) 0.05 K/uL (0-0); Plasma Cells % (manual) 0.9 %
[2019-09-20] MEDS: INSULIN ASPART 100 UNITS/ML 3 ML PEN SC SCH ×4 (08:21→21:28)
[2019-09-20] MEDS: CALCIUM 600MG + VIT D 400 IU TAB PO SCH ×3 (08:22→21:09)
[2019-09-20] MEDS: PANTOprazole 40 MG TAB PO SCH ×2 (08:22→21:11)
[2019-09-20] MEDS: MAGNESIUM OXIDE 400 MG TAB PO SCH ×4 (08:22→21:11)
[2019-09-20] MEDS: FLUVOXAMINE MALEATE 50 MG TAB PO SCH ×2 (08:22→21:10)
[2019-09-20] MEDS: POTASSIUM CHLORIDE 20 MEQ TABCR PO SCH ×3 (08:23→17:19)
[2019-09-20] MEDS: SERTRALINE HCL 50 MG TABLET PO SCH (08:23)
[2019-09-20] MEDS: CYANOCOBALAMIN 500 MCG TABLET (VITAMIN B-12) PO SCH (08:23)
[2019-09-20] MEDS: QUETIAPINE FUMARATE 200 MG TAB PO SCH (08:23)
[2019-09-20] MEDS: INSULIN GLARGINE SOLOSTAR 100 UNITS/ML 3 ML PEN SC SCH ×3 (08:24→21:27)
[2019-09-20] MEDS: carvediloL 25 MG TAB PO SCH ×2 (08:24→21:09)
[2019-09-20] MEDS: FLUTICASONE/VILANTEROL 100/25MCG 14 PUFFS/INHALER INH SCH (08:25)
[2019-09-20] MEDS: OSELTAMIVIR PHOSPHATE SUSP 30 MG/5 ML UDP PO SCH ×2 (08:26→21:26)
[2019-09-20] MEDS: TORSEMIDE 20 MG TAB PO SCH (08:26)
[2019-09-20] MEDS: OXYCODONE/ACETAMINOPHEN 10-325 TAB PO PRN ×2 (08:32→17:30)
[2019-09-20] MEDS: PREGABALIN 50 MG CAP PO SCH ×3 (08:32→21:25)
[2019-09-20] MEDS ORDERED: DOXYCYCLINE HYCLATE 100 MG in DEXTROSE 5% 100 ML IV SCH (09:00)
--- NOTE | 2019-09-20 13:24 | XCELERA ---
[id number] \\[email or web address]\[id number]
--- NOTE | 2019-09-20 14:26 | Electrocardiogram Report ---
Test Reason : Blood Pressure : / mmHG Vent. Rate : 073 BPM Atrial Rate : 073 BPM P-R Int : 156 ms QRS Dur : 082 ms QT Int : 404 ms P-R-T Axes : 057 046 054 degrees QTc Int : 445 ms Normal sinus rhythm Low voltage QRS Nonspecific T wave abnormality Abnormal ECG When compared with ECG of 26-AUG-2017 14:31, No significant change was found Confirmed by Mike Latham [id number] on 09/20/2019 2:26:19 PM Referred By: REFERRED SELF Confirmed By:Mike Latham
[2019-09-20] MEDS ORDERED: cefTRIAXone SODIUM 2,000 MG in DEXTROSE 5% 50 ML IV SCH (16:00)
[2019-09-20] MEDS ORDERED: WARFARIN SOD 2 MG TAB PO SCH (16:00)
--- NOTE | 2019-09-20 16:33 | Hospitalist Progress Note ---
Date of Service September 20, 2019 Assessment & Plan (1) Influenza A: Continue Tamiflu (2) COPD exacerbation: Given her diabetes will try to minimize steroid use if at all possible, given the little bit of wheezing we will definitely need to monitor this closely. It seems that influenza with COPD are the main reasons for her hypoxia. DuoNebs 4 times daily/every 2 as needed, follow closely. (3) Left lower lobe pneumonia: Questionable, MRSA nares is negative so stop doxycycline. Continue ceftriaxone into tomorrow, but repeat pro calcitonin, serial examslow threshold to discontinue antibiotics. (Keep a Zithromax for COPD exacerbation) (4) DVT (deep venous thrombosis): Continue warfarin, follow daily INR Monitor PT/INR daily (5) Pulmonary embolism: As above (6) Diabetes: Await A1c. Continue fingersticks and basal bolus insulin management. Right now sugars were a bit on the high sidethroughout the day insulins titrated up. (7) Hypertension: Numbers reasonable given the situation. Continue current course (8) Depression: Continue sertraline 50 mg p.o. daily. Continue Seroquel 200 mg p.o. daily Continue lorazepam 0.5 mg p.o. 3 times daily as needed for anxiety and agitatio n. (Follow respiratory status) Continue fluvoxamine 100 mg p.o. twice daily. (9) GERD (gastroesophageal reflux disease): No complaints of this todaycontinue omeprazole 20 mg p.o. twice daily. (10) Chronic lower back pain: No complaints of this todaycontinue pregabalin 50 mg p.o. 3 times daily, trazodone 100 mg p.o. nightly (11) Constipation, acute: Continue Colace, follow. (12) Osteoporosis: Continue calcium carbonate vitamin D3 1 tablet p.o. 3 times daily. (13) Hyponatremia: Likely related to flu/acute pulmonary illness, likely changes in p.o. intake. Continue to follow. (14) Chest pain: Seems to have at least 2 different chest pain syndromes1 of which seems to be predominantly related to her flu/bronchitis, the other is a bit more concerning for angina. That said, she has no ongoing pain that is constant, she was being routinely worked up for this as an outpatient, and her current troponin is negative. Follow clinically, continue medications for secondary risk reduction, but no need for acute intervention at this time. Admission and Anticipated Discharge Date Admission Date: September 19, 2019 Subjective Breathing feels better than whenever she came in. She still has a cough. Did have a sweat in the middle of the night, does not recall chills or fevers. 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 Her current chest pain sounds no different than that. She also notes bilateral hand paresthesias since probably around Alberto. Notes that she has asthma or COPD at baseline. Review of systems otherwise negative except for as above. Review of Systems Review of Systems: All systems reviewed & are unremarkable except as noted in HPI & below Physical Exam Physical Exam: In general she is awake and alert pleasant appears fatigued but otherwise in no distress. HEENT normocephalic atraumatic mucous membranes are moist. Lungs are diminished on air entry bilaterally with expiratory scattered rhonchi and wheezing no accessory muscle use good effort. Skin shows no rashes no pallor or icterus. Neuro shows cranial nerves II through XII are grossly intact gross motor and sensory are intact. Mental status shows fair recent and remote recall, normal mood and affect. Results & Data ([facility]) Vital Signs (Past 12 Hours) Vital Signs Temp Pulse Pulse Resp BP Pulse Ox 09/20/19 15:21 97.9 F 70 18 125/60 94 09/20/19 12:02 98.4 F 71 18 116/71 95 09/20/19 08:01 98.4 F 70 18 138/73 95 09/20/19 08:00 62 PG Care Time/CCT Total # of Minutes Spent Total Time Spent with Patient: Total time spent is greater than 50% in coordination of care (as documented) at patient's floor/unit and/or counseling patient: Coding Level of Care Code 01724 Subseq Hosp Care Lvl 3 Diagnoses Influenza A J10.1 COPD exacerbation J44.1 Left lower lobe pneumonia J11.00 Pneumonia type: due to influenza A virus DVT (deep venous thrombosis) I82.409 Pulmonary embolism I26.99 Diabetes E11.9 Hypertension I10 Depression F32.9 GERD (gastroesophageal reflux disease) K21.9 Chronic lower back pain M54.5; G89.29 Constipation, acute K59.00 Osteoporosis M81.0 Hyponatremia E87.1 Chest pain R07.9 (1) Left lower lobe pneumonia Pneumonia type: due to influenza A virus Qualified Code(s): J11.00 - Influenza due to unidentified influenza virus with unspecified type of pneumonia
[2019-09-20] MEDS ORDERED: AZITHROMYCIN 250 MG TAB PO ONE (16:45)
[2019-09-20] MEDS: WARFARIN SOD 5 MG TAB PO SCH (17:18)
[2019-09-20] MEDS: TRAZODONE HCL 100 MG TAB PO SCH (21:09)
[2019-09-20] MEDS: SIMVASTATIN 20 MG TAB PO SCH (21:11)
[2019-09-21] MEDS: LEVOTHYROXINE SODIUM 50 MCG TABLET PO SCH (05:51)
[2019-09-21] MEDS: GUAIFENESIN/CODEINE 200MG/20MG 10ML UDC PO PRN ×2 (05:51→12:13)
[2019-09-21 05:54] LABS: Basophils # (auto) 0.02 K/uL (0-0.2); Basophils % (auto) 0.3 %; Eosinophils # (auto) 0.01 K/uL (0-0.5); Eosinophils % (auto) 0.1 %; Hemoglobin 11.1 g/dL (12.0-16.0); Immature Granulocytes # (auto) 0.06 K/uL (0.00-0.02); Immature Granulocytes % (auto) 0.8 %; Lymphocytes % (auto) 26.5 %; Mean Corpuscular Hemoglobin 30.4 pg (25-34); Mean Corpuscular Hgb Conc 31.7 g/dL (32-36); Mean Corpuscular Volume 95.9 fL (80-100); Mean Platelet Volume 11.2 fL (7.4-10.4); Monocytes # (auto) 0.82 K/uL (0.11-0.59); Monocytes % (auto) 10.4 %; Neutrophils # (auto) 4.91 K/uL (1.4-6.5); Neutrophils % (auto) 61.9 %; Nucleated RBC # (auto) 0.02 K/uL (0-0); Nucleated RBC % (auto) 0.3 %; Platelet Count 199 K/uL (130-400); RDW Coefficient of Variation 13.9 % (11.5-14.5); RDW Standard Deviation 48.6 fL (36.4-46.3); Red Blood Count 3.65 M/uL (4.2-5.4); White Blood Count 7.92 K/uL (4.8-10.8)
[2019-09-21 06:19] LABS: Prothrombin Time 37.4 Seconds (9.0-12.0)
[2019-09-21 06:21] LABS: INR 3.8 (0.9-1.1)
[2019-09-21 06:38] LABS: BUN Creatinine Ratio 22.2 (10-20); Creatinine Clr Calc Pharmacy 52.7 ml/min; Est GFR (African American) 54.9; Est GFR (Non-African American) 47.4; Potassium 4.5 mmol/L (3.5-5.1)
[2019-09-21] MEDS: carvediloL 25 MG TAB PO SCH ×2 (08:16→21:13)
[2019-09-21] MEDS: CYANOCOBALAMIN 500 MCG TABLET (VITAMIN B-12) PO SCH (08:18)
[2019-09-21] MEDS: QUETIAPINE FUMARATE 200 MG TAB PO SCH (08:18)
[2019-09-21] MEDS: TORSEMIDE 20 MG TAB PO SCH (08:18)
[2019-09-21] MEDS: POTASSIUM CHLORIDE 20 MEQ TABCR PO SCH ×3 (08:18→17:53)
[2019-09-21] MEDS: SERTRALINE HCL 50 MG TABLET PO SCH (08:18)
[2019-09-21] MEDS: FLUVOXAMINE MALEATE 50 MG TAB PO SCH ×2 (08:18→21:05)
[2019-09-21] MEDS: CALCIUM 600MG + VIT D 400 IU TAB PO SCH ×3 (08:19→21:05)
[2019-09-21] MEDS: PANTOprazole 40 MG TAB PO SCH ×2 (08:19→21:05)
[2019-09-21] MEDS: MAGNESIUM OXIDE 400 MG TAB PO SCH ×4 (08:19→21:05)
[2019-09-21] MEDS: INSULIN GLARGINE SOLOSTAR 100 UNITS/ML 3 ML PEN SC SCH ×2 (08:20→21:06)
[2019-09-21] MEDS: FLUTICASONE/VILANTEROL 100/25MCG 14 PUFFS/INHALER INH SCH (08:21)
[2019-09-21] MEDS: PREGABALIN 50 MG CAP PO SCH ×3 (08:26→21:05)
[2019-09-21] MEDS: OSELTAMIVIR PHOSPHATE SUSP 30 MG/5 ML UDP PO SCH ×2 (08:38→21:05)
[2019-09-21] MEDS: OXYCODONE/ACETAMINOPHEN 10-325 TAB PO PRN (08:38)
[2019-09-21] MEDS: AZITHROMYCIN 250 MG TAB PO SCH (08:38)
[2019-09-21] MEDS: INSULIN ASPART 100 UNITS/ML 3 ML PEN SC SCH ×4 (08:39→21:07)
--- NOTE | 2019-09-21 17:20 | Hospitalist Progress Note ---
Date of Service September 21, 2019 Assessment & Plan (1) Influenza A: Continue Tamiflu, pharmacy renally dosing. appears to be improving. (2) COPD exacerbation: Given her diabetes will try to minimize steroid use if at all possible, fortunately the wheezing from yesterday has improved. Appears influenza with COPD are the main reasons for her hypoxia. DuoNebs 4 times daily/every 2 as needed, follow - safe for transfer to medical (3) Left lower lobe pneumonia: initially on doxy/ceftriaxone. MRSA nares was negative so doxy changed to zithromax just for pulmonary antiinflammatory effect. procal repeatedly negative and 2 days of clinical evals c/w flu/COPD and not w pneumonia - stop ceftriaxone and follow. however, after further review, doubt she ever truly had secondary pneumonia (obviously continue to follow since this year's flu has had a surprising amount of post-flu associated pneumonias) (4) DVT (deep venous thrombosis): Continue warfarin, follow daily INR - sl high today. Monitor PT/INR daily (5) Pulmonary embolism: As above, coumadin, follow INR (6) Diabetes: A1c fairly respectable at 7.3% so baseline control reasonable. currently continues to run a little high - titrate insulins (today tighten carb ratio to balance out closer to 50/50 between basal and bolus) Continue fingersticks and basal bolus insulin management. (7) Hypertension: Numbers reasonable given the situation. Continue current medications (8) Depression: Continue sertraline 50 mg p.o. daily. Continue Seroquel 200 mg p.o. daily Continue lorazepam 0.5 mg p.o. 3 times daily as needed for anxiety and agitation. (Follow respiratory status) Continue fluvoxamine 100 mg p.o. twice daily. (9) GERD (gastroesophageal reflux disease): No complaints of this todaycontinue omeprazole 20 mg p.o. twice daily. (10) Chronic lower back pain: No complaints of this todaycontinue pregabalin 50 mg p.o. 3 times daily, trazodone 100 mg p.o. nightly does not show need for ortho consult - dc'd. (11) Constipation, acute: Continue Colace, follow. (12) Osteoporosis: Continue calcium carbonate vitamin D3 1 tablet p.o. 3 times daily. (13) Hyponatremia: Likely related to flu/acute pulmonary illness, likely changes in p.o. intake. Continue to follow. (14) Chest pain: Seems to have at least 2 different chest pain syndromes1 of which seems to be predominantly related to her flu/bronchitis, the other is a bit more concerning for angina. That said, she has no ongoing pain that is constant, she was being routinely worked up for this as an outpatient, and her current troponin is negative. Follow clinically, continue medications for secondary risk reduction, but no need for acute intervention at this time. 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 (15) Discharge planning issues: stable to move to med/surg today. PT/OT eval and treat ongoing - but appears likely that pt will be able to return home (?may need O2 for a short time) on discharge. Admission and Anticipated Discharge Date Admission Date: September 19, 2019 Subjective feeling a good deal better than before, still coughing but breathing better. fatigued and weak but notes mostly due to illness. no f/c/s. notes that she wants to work with therapy slowly - would prefer to move rooms today work wtih therpay again tomorrow, but is willing to be out of bed for meals.. Review of Systems Review of Systems: All systems reviewed & are unremarkable except as noted in HPI & below Physical Exam Physical Exam: gen aao pleasant but fatigued nad. heent nc at mmm. lungs diminished throughout but essentially no r/r/w (?maybe faint wheeze R upper lung but far more clear than yesterday) no accessory muscles good effort. skin no rashes no pallor or icterus. neuro cn 2-12 grossly intact gross motor/sensory intact. Results & Data ([facility]) Vital Signs (Past 12 Hours) Vital Signs Temp Pulse Pulse Pulse Resp BP Pulse Ox 09/21/19 16:25 98.1 F 65 18 100/67 94 09/21/19 12:25 97.9 F 65 18 92 09/21/19 12:00 99/58 L 09/21/19 08:00 62 09/21/19 07:00 98.4 F 59 L 16 103/48 L 95 PG Care Time/CCT Total # of Minutes Spent Total Time Spent with Patient: Total time spent is greater than 50% in coordination of care (as documented) at patient's floor/unit and/or counseling patient: Coding Level of Care Code 97728 Subseq Hosp Care Lvl 3 Diagnoses Influenza A J10.1 COPD exacerbation J44.1 Left lower lobe pneumonia J11.00 Pneumonia type: due to influenza A virus DVT (deep venous thrombosis) I82.409 Pulmonary embolism I26.99 Diabetes E11.9 Hypertension I10 Depression F32.9 GERD (gastroesophageal reflux disease) K21.9 Chronic lower back pain M54.5; G89.29 Constipation, acute K59.00 Osteoporosis M81.0 Hyponatremia E87.1 Chest pain R07.9 Discharge planning issues Z02.9 (1) Left lower lobe pneumonia Pneumonia type: due to influenza A virus Qualified Code(s): J11.00 - Influenza due to unidentified influenza virus with unspecified type of pneumonia
[2019-09-21] MEDS: SIMVASTATIN 20 MG TAB PO SCH (21:05)
[2019-09-21] MEDS: TRAZODONE HCL 100 MG TAB PO SCH (21:05)
[2019-09-21] MEDS: DOCUSATE SODIUM 100 MG CAP PO PRN (21:15)
[2019-09-22] MEDS: LEVOTHYROXINE SODIUM 50 MCG TABLET PO SCH (06:03)
[2019-09-22 06:22] LABS: Prothrombin Time 36.6 Seconds (9.0-12.0)
[2019-09-22 06:24] LABS: INR 3.7 (0.9-1.1)
[2019-09-22 06:32] LABS: BUN Creatinine Ratio 21.3 (10-20); Calcium 8.7 mg/dl (8.5-10.1); Est GFR (African American) 56.6; Est GFR (Non-African American) 48.9; Potassium 4.3 mmol/L (3.5-5.1)
[2019-09-22] MEDS: FLUTICASONE/VILANTEROL 100/25MCG 14 PUFFS/INHALER INH SCH (08:02)
[2019-09-22] MEDS: POTASSIUM CHLORIDE 20 MEQ TABCR PO SCH ×3 (08:02→17:53)
[2019-09-22] MEDS: TORSEMIDE 20 MG TAB PO SCH (08:03)
[2019-09-22] MEDS: carvediloL 25 MG TAB PO SCH ×2 (08:03→22:06)
[2019-09-22] MEDS: FLUVOXAMINE MALEATE 50 MG TAB PO SCH ×2 (08:04→22:00)
[2019-09-22] MEDS: CALCIUM 600MG + VIT D 400 IU TAB PO SCH ×3 (08:04→22:01)
[2019-09-22] MEDS: MAGNESIUM OXIDE 400 MG TAB PO SCH ×4 (08:05→22:03)
[2019-09-22] MEDS: PREGABALIN 50 MG CAP PO SCH ×3 (08:05→22:00)
[2019-09-22] MEDS: PANTOprazole 40 MG TAB PO SCH ×2 (08:05→22:00)
[2019-09-22] MEDS: QUETIAPINE FUMARATE 200 MG TAB PO SCH (08:05)
[2019-09-22] MEDS: AZITHROMYCIN 250 MG TAB PO SCH (08:06)
[2019-09-22] MEDS: SERTRALINE HCL 50 MG TABLET PO SCH (08:06)
[2019-09-22] MEDS: CYANOCOBALAMIN 500 MCG TABLET (VITAMIN B-12) PO SCH (08:06)
[2019-09-22] MEDS: INSULIN GLARGINE SOLOSTAR 100 UNITS/ML 3 ML PEN SC SCH ×2 (08:50→22:02)
[2019-09-22] MEDS: INSULIN ASPART 100 UNITS/ML 3 ML PEN SC SCH ×4 (08:50→22:02)
[2019-09-22] MEDS: OSELTAMIVIR PHOSPHATE SUSP 30 MG/5 ML UDP PO SCH ×2 (08:51→22:00)
[2019-09-22] MEDS: OXYCODONE/ACETAMINOPHEN 10-325 TAB PO PRN ×2 (11:34→21:52)
--- NOTE | 2019-09-22 18:31 | Hospitalist Progress Note ---
Date of Service September 22, 2019 Assessment & Plan (1) Influenza A: Continue Tamiflu, pharmacy renally dosing. appears to be improving. (2) COPD exacerbation: Given her diabetes will try to minimize steroid use if at all possible, fortunately the wheezing from the past 2 days have improved. No steorids today. Appears influenza with COPD are the main reasons for her hypoxia. DuoNebs 4 times daily/every 2 as needed, follow (3) Left lower lobe pneumonia: initially on doxy/ceftriaxone. MRSA nares was negative so doxy changed to zithromax just for pulmonary antiinflammatory effect. procal repeatedly negative and 2 days of clinical evals c/w flu/COPD and not w pneumonia - stop ceftriaxone and follow. however, after further review, doubt she ever truly had secondary pneumonia (obviously continue to follow since this year's flu has had a surprising amount of post-flu associated pneumonias) (4) DVT (deep venous thrombosis): holding warfarin, follow daily INR - high Monitor PT/INR daily (5) Pulmonary embolism: As above, coumadin, follow INR (6) Diabetes: A1c fairly respectable at 7.3% so baseline control reasonable. currently continues to run a little high - titrate insulins (today tighten carb ratio to balance out closer to 50/50 between basal and bolus) Continue fingersticks and basal bolus insulin management. (7) Hypertension: Numbers reasonable given the situation. Continue current medications (8) Depression: Continue sertraline 50 mg p.o. daily. Continue Seroquel 200 mg p.o. daily Continue lorazepam 0.5 mg p.o. 3 times daily as needed for anxiety and agit ation. (Follow respiratory status) Continue fluvoxamine 100 mg p.o. twice daily. (9) GERD (gastroesophageal reflux disease): No complaints of this todaycontinue omeprazole 20 mg p.o. twice daily. (10) Chronic lower back pain: No complaints of this todaycontinue pregabalin 50 mg p.o. 3 times daily, trazodone 100 mg p.o. nightly does not show need for ortho consult - dc'd. (11) Constipation, acute: Continue Colace, follow. (12) Osteoporosis: Continue calcium carbonate vitamin D3 1 tablet p.o. 3 times daily. (13) Hyponatremia: Likely related to flu/acute pulmonary illness, likely changes in p.o. intake. Continue to follow. (14) Chest pain: Seems to have at least 2 different chest pain syndromes1 of which seems to be predominantly related to her flu/bronchitis, the other is a bit more concerning for angina. That said, she has no ongoing pain that is constant, she was being routinely worked up for this as an outpatient, and her current troponin is negative. Follow clinically, continue medications for secondary risk reduction, but no need for acute intervention at this time. 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 (15) Discharge planning issues: PT/OT eval and treat ongoing - but appears likely that pt will be able to return home (?may need O2 for a short time) on discharge. Admission and Anticipated Discharge Date Admission Date: September 19, 2019 Subjective 69 yo female reports feeling better. She states she is coughing less today. She states she is not quite at baseline however. Review of Systems Review of Systems: All systems reviewed & are unremarkable except as noted in HPI & below Physical Exam Physical Exam: Constitutional: WD/WN, vitals as above well developed and + ill appearing Eyes: PERRL, conjunctivae normal, anicteric sclerae ENMT: external ear and nose normal, oropharynx normal Neck: trachea midline, no thyromegaly Respiratory: no longer tachypnic, no wheezing, decreased breath sounds Cardiovascular: RRR, no murmur, no edema Gastrointestinal (Abdomen): bowel sounds (+), soft, nontender, no hepatosplenomegaly Musculoskeletal: no cyanosis or clubbing, extremities motor strength 5/5 Skin: no rashes, warm and dry Neurologic: patellar DTR's 2+ bilat, sensation intact Psychiatric: A+Ox3, euthymic affect Lymphatic: no cervical or axillary lymphadenopathy Results & Data ([facility]) Vital Signs (Past 12 Hours) Vital Signs Temp Pulse Resp BP Pulse Ox Pulse Ox Pulse Ox 09/22/19 14:54 36.8 C 70 18 112/74 93 09/22/19 11:35 92 94 09/22/19 07:09 37.0 C 61 18 112/70 93 PG Care Time/CCT Total # of Minutes Spent Total Time Spent with Patient: Total time spent is greater than 50% in coordination of care (as documented) at patient's floor/unit and/or counseling patient: Coding Level of Care Code 04852 Subseq Hosp Care Lvl 3 Diagnoses Influenza A J10.1 COPD exacerbation J44.1 Left lower lobe pneumonia J11.00 Pneumonia type: due to influenza A virus DVT (deep venous thrombosis) I82.409 Pulmonary embolism I26.99 Diabetes E11.9 Hypertension I10 Depression F32.9 GERD (gastroesophageal reflux disease) K21.9 Chronic lower back pain M54.5; G89.29 Constipation, acute K59.00 Osteoporosis M81.0 Hyponatremia E87.1 Chest pain R07.9 Discharge planning issues Z02.9 Time Spent (min) 35 (1) Left lower lobe pneumonia Pneumonia type: due to influenza A virus Qualified Code(s): J11.00 - Influenza due to unidentified influenza virus with unspecified type of pneumonia
[2019-09-22] MEDS: DOCUSATE SODIUM 100 MG CAP PO PRN (21:52)
[2019-09-22] MEDS: SIMVASTATIN 20 MG TAB PO SCH (22:00)
[2019-09-22] MEDS: TRAZODONE HCL 100 MG TAB PO SCH (22:05)
[2019-09-23] MEDS: LEVOTHYROXINE SODIUM 50 MCG TABLET PO SCH (06:07)
[2019-09-23 06:35] LABS: INR 2.3 (0.9-1.1); Prothrombin Time 23.6 Seconds (9.0-12.0)
[2019-09-23 08:12] LABS: Basophils # (auto) 0.04 K/uL (0-0.2); Basophils % (auto) 0.7 %; Eosinophils # (auto) 0.07 K/uL (0-0.5); Eosinophils % (auto) 1.2 %; Hematocrit (blood only) 35.3 % (37-47); Hemoglobin 11.2 g/dL (12.0-16.0); Immature Granulocytes # (auto) 0.25 K/uL (0.00-0.02); Immature Granulocytes % (auto) 4.4 %; Lymphocytes # (auto) 2.67 K/uL (1.2-3.4); Lymphocytes % (auto) 46.5 %; Mean Corpuscular Hemoglobin 30.6 pg (25-34); Mean Corpuscular Hgb Conc 31.7 g/dL (32-36); Mean Corpuscular Volume 96.4 fL (80-100); Mean Platelet Volume 10.8 fL (7.4-10.4); Monocytes % (auto) 13.9 %; Neutrophils # (auto) 1.91 K/uL (1.4-6.5); Neutrophils % (auto) 33.3 %; Platelet Count 224 K/uL (130-400); RDW Coefficient of Variation 14.2 % (11.5-14.5); RDW Standard Deviation 49.9 fL (36.4-46.3); Red Blood Count 3.66 M/uL (4.2-5.4); White Blood Count 5.74 K/uL (4.8-10.8)
[2019-09-23] MEDS: POTASSIUM CHLORIDE 20 MEQ TABCR PO SCH ×3 (08:22→17:47)
[2019-09-23] MEDS: carvediloL 25 MG TAB PO SCH ×2 (08:22→21:04)
[2019-09-23] MEDS: CALCIUM 600MG + VIT D 400 IU TAB PO SCH ×3 (08:22→21:04)
[2019-09-23] MEDS: FLUTICASONE/VILANTEROL 100/25MCG 14 PUFFS/INHALER INH SCH (08:22)
[2019-09-23] MEDS: MAGNESIUM OXIDE 400 MG TAB PO SCH ×4 (08:23→21:02)
[2019-09-23] MEDS: PREGABALIN 50 MG CAP PO SCH ×3 (08:23→21:02)
[2019-09-23] MEDS: FLUVOXAMINE MALEATE 50 MG TAB PO SCH ×2 (08:23→21:04)
[2019-09-23] MEDS: TORSEMIDE 20 MG TAB PO SCH (08:23)
[2019-09-23] MEDS: PANTOprazole 40 MG TAB PO SCH ×2 (08:23→21:04)
[2019-09-23] MEDS: AZITHROMYCIN 250 MG TAB PO SCH (08:24)
[2019-09-23] MEDS: CYANOCOBALAMIN 500 MCG TABLET (VITAMIN B-12) PO SCH (08:24)
[2019-09-23] MEDS: SERTRALINE HCL 50 MG TABLET PO SCH (08:24)
[2019-09-23] MEDS: OSELTAMIVIR PHOSPHATE SUSP 30 MG/5 ML UDP PO SCH ×2 (08:24→21:02)
[2019-09-23] MEDS: OXYCODONE/ACETAMINOPHEN 10-325 TAB PO PRN (08:24)
[2019-09-23] MEDS: QUETIAPINE FUMARATE 200 MG TAB PO SCH (08:24)
[2019-09-23] MEDS: INSULIN GLARGINE SOLOSTAR 100 UNITS/ML 3 ML PEN SC SCH ×2 (08:25→21:00)
[2019-09-23] MEDS: INSULIN ASPART 100 UNITS/ML 3 ML PEN SC SCH ×4 (08:25→21:01)
--- NOTE | 2019-09-23 09:46 | XRay Report ---
XR chest 1V portable HISTORY: 69 years-old Female cough acute cough COMPARISON: Chest radiograph 09/19/2019 TECHNIQUE: Portable AP view of the chest FINDINGS: Cardiac silhouette is enlarged, unchanged. Mild pulmonary vascular congestion. Linear left midlung la teral opacities suggest atelectasis versus scarring. There is mild right hemidiaphragmatic elevation. Linear retrocardiac opacities suggest atelectasis versus scarring. Degenerative changes of the shoul ders and spine. Remote fracture deformity of the proximal left humerus. IMPRESSION: 1. Cardiomegaly with pulmonary vascular congestion. 2. Mild linear scarring/atelectasis of the lateral left midlung. ACT 112: Negative or not required by law. The above report was generated using voice recognition software. It may contain grammatical, syntax o r spelling errors. Electronically signed by: Harris Pedroza M.D. 09/23/2019 9:45 AM
[2019-09-23] MEDS: LEVALBUTEROL HCL 1.25 MG/3 ML NEB NEB SCH (20:18)
[2019-09-23] MEDS: DOCUSATE SODIUM 100 MG CAP PO PRN (21:02)
[2019-09-23] MEDS: SIMVASTATIN 20 MG TAB PO SCH (21:02)
[2019-09-23] MEDS: TRAZODONE HCL 100 MG TAB PO SCH (21:04)
--- NOTE | 2019-09-23 22:55 | Hospitalist Progress Note ---
Date of Service September 23, 2019 Assessment & Plan (1) Influenza A: Continue Tamiflu, pharmacy renally dosing. appears to be improving. However due to her decreased breath souds and wheezing, will add Q6H nebulizers. will closely monitor her. Chin hold discharge for another day. Will check BNP in AM. (2) COPD exacerbation: Given her diabetes will try to minimize steroid use if at all possible, fortunately the wheezing from the past 2 days have improved. No steorids today. Appears influenza with COPD are the main reasons for her hypoxia. DuoNebs 4 times daily/every 2 as needed, follow (3) Left lower lobe pneumonia: initially on doxy/ceftriaxone. MRSA nares was negative so doxy changed to zithromax just for pulmonary antiinflammatory effect. procal repeatedly negative and 2 days of clinical evals c/w flu/COPD and not w pneumonia - stop ceftriaxone and follow. however, after further review, doubt she ever truly had secondary pneumonia (obviously continue to follow since this year's flu has had a surprising amount of post-flu associated pneumonias) (4) DVT (deep venous thrombosis): Monitor PT/INR daily (5) Pulmonary embolism: As above, coumadin, follow INR (6) Diabetes: A1c fairly respectable at 7.3% so baseline control reasonable. currently continues to run a little high - titrate insulins (today tighten carb ratio to balance out closer to 50/50 between basal and bolus) Continue fingersticks and basal bolus insulin management. (7) Hypertension: Numbers reasonable given the situation. Continue current medications (8) Depression: Continue sertraline 50 mg p.o. daily. Continue Seroquel 200 mg p.o. daily Continue lorazepam 0.5 mg p.o. 3 times daily as needed for anxiety and agitation. (Follow respiratory status) Continue fluvoxamine 100 mg p.o. twice daily. (9) GERD (gastroesophageal reflux disease): No complaints of this todaycontinue omeprazole 20 mg p.o. twice daily. (10) Chronic lower back pain: No complaints of this todaycontinue pregabalin 50 mg p.o. 3 times daily, trazodone 100 mg p.o. nightly does not show need for ortho consult - dc'd. (11) Constipation, acute: Continue Colace, follow. (12) Osteoporosis: Continue calcium carbonate vitamin D3 1 tablet p.o. 3 times daily. (13) Hyponatremia: Likely related to flu/acute pulmonary illness, likely changes in p.o. intake. Continue to follow. (14) Chest pain: Seems to have at least 2 different chest pain syndromes1 of which seems to be predominantly related to her flu/bronchitis, the other is a bit more concerning for angina. That said, she has no ongoing pain that is constant, she was being routinely worked up for this as an outpatient, and her current troponin is negative. Follow clinically, continue medications for secondary risk reduction, but no need for acute intervention at this time. 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 (15) Discharge planning issues: PT/OT eval and treat ongoing - but appears likely that pt will be able to return home (?may need O2 for a short time) on discharge. Admission and Anticipated Discharge Date Admission Date: September 19, 2019 Subjective 69 yo female reports feeling more SOB today. She states her chest seems tighter today. She denies any fever, chills, nausea, vomiting. Review of Systems Review of Systems: All systems reviewed & are unremarkable except as noted in HPI & below Physical Exam Physical Exam: Constitutional: WD/WN, vitals as above well developed and + ill appearing Eyes: PERRL, conjunctivae normal, anicteric sclerae ENMT: external ear and nose normal, oropharynx normal Neck: trachea midline, no thyromegaly Respiratory: no longer tachypnic, decreased breath sounds, with expiratory wheezing Cardiovascular: RRR, no murmur, no edema Gastrointestinal (Abdomen): bowel sounds (+), soft, nontender, no hepatosplenomegaly Musculoskeletal: no cyanosis or clubbing, extremities motor strength 5/5 Skin: no rashes, warm and dry Neurologic: patellar DTR's 2+ bilat, sensation intact Psychiatric: A+Ox3, euthymic affect Lymphatic: no cervical or axillary lymphadenopathy Results & Data ([facility]) Vital Signs (Past 12 Hours) Vital Signs Temp Pulse Resp BP Pulse Ox 09/23/19 21:00 70 133/81 09/23/19 20:19 62 18 96 09/23/19 15:06 36.6 C 59 L 18 140/60 93 PG Care Time/CCT Total # of Minutes Spent Total Time Spent with Patient: Total time spent is greater than 50% in coordination of care (as documented) at patient's floor/unit and/or counseling patient: Coding Level of Care Code 76187 Subseq Hosp Care Lvl 3 Diagnoses Influenza A J10.1 COPD exacerbation J44.1 Left lower lobe pneumonia J11.00 Pneumonia type: due to influenza A virus DVT (deep venous thrombosis) I82.409 Pulmonary embolism I26.99 Diabetes E11.9 Hypertension I10 Depression F32.9 GERD (gastroesophageal reflux disease) K21.9 Chronic lower back pain M54.5; G89.29 Constipation, acute K59.00 Osteoporosis M81.0 Hyponatremia E87.1 Chest pain R07.9 Discharge planning issues Z02.9 Time Spent (min) 35 (1) Left lower lobe pneumonia Pneumonia type: due to influenza A virus Qualified Code(s): J11.00 - Influ mayra due to unidentified influenza virus with unspecified type of pneumonia
[2019-09-24] MEDS: LEVALBUTEROL HCL 1.25 MG/3 ML NEB NEB SCH ×4 (01:00→19:29)
[2019-09-24] MEDS: LEVOTHYROXINE SODIUM 50 MCG TABLET PO SCH (06:42)
[2019-09-24 06:54] LABS: INR 1.6 (0.9-1.1); Prothrombin Time 16.2 Seconds (9.0-12.0)
[2019-09-24] MEDS: POTASSIUM CHLORIDE 20 MEQ TABCR PO SCH ×3 (08:48→17:53)
[2019-09-24] MEDS: CALCIUM 600MG + VIT D 400 IU TAB PO SCH ×3 (08:49→21:06)
[2019-09-24] MEDS: AZITHROMYCIN 250 MG TAB PO SCH (08:49)
[2019-09-24] MEDS: PANTOprazole 40 MG TAB PO SCH ×2 (08:50→21:08)
[2019-09-24] MEDS: MAGNESIUM OXIDE 400 MG TAB PO SCH ×4 (08:50→21:06)
[2019-09-24] MEDS: TORSEMIDE 20 MG TAB PO SCH (08:51)
[2019-09-24] MEDS: SERTRALINE HCL 50 MG TABLET PO SCH (08:51)
[2019-09-24] MEDS: CYANOCOBALAMIN 500 MCG TABLET (VITAMIN B-12) PO SCH (08:51)
[2019-09-24] MEDS: QUETIAPINE FUMARATE 200 MG TAB PO SCH (08:52)
[2019-09-24] MEDS: carvediloL 25 MG TAB PO SCH ×2 (08:52→21:06)
[2019-09-24] MEDS: FLUVOXAMINE MALEATE 50 MG TAB PO SCH ×2 (08:52→21:06)
[2019-09-24 08:53] LABS: Hematocrit (blood only) 38.5 % (37-47); Hemoglobin 12.4 g/dL (12.0-16.0); Mean Corpuscular Hemoglobin 30.9 pg (25-34); Mean Corpuscular Hgb Conc 32.2 g/dL (32-36); Mean Platelet Volume 10.5 fL (7.4-10.4); Platelet Count 234 K/uL (130-400); RDW Coefficient of Variation 13.9 % (11.5-14.5); RDW Standard Deviation 48.7 fL (36.4-46.3); Red Blood Count 4.01 M/uL (4.2-5.4); White Blood Count 6.18 K/uL (4.8-10.8)
[2019-09-24] MEDS: FLUTICASONE/VILANTEROL 100/25MCG 14 PUFFS/INHALER INH SCH (08:53)
[2019-09-24] MEDS: PREGABALIN 50 MG CAP PO SCH ×3 (08:54→21:06)
[2019-09-24] MEDS: DOCUSATE SODIUM 100 MG CAP PO PRN (08:54)
[2019-09-24] MEDS: INSULIN ASPART 100 UNITS/ML 3 ML PEN SC SCH ×4 (08:55→21:05)
[2019-09-24] MEDS: INSULIN GLARGINE SOLOSTAR 100 UNITS/ML 3 ML PEN SC SCH ×2 (08:55→21:05)
[2019-09-24] MEDS: OSELTAMIVIR PHOSPHATE SUSP 30 MG/5 ML UDP PO SCH ×2 (08:58→21:06)
[2019-09-24] MEDS ORDERED: WARFARIN SOD 5 MG TAB PO ONE (09:00)
[2019-09-24 09:28] LABS: Calcium 9.1 mg/dl (8.5-10.1); Creatinine Clr Calc Pharmacy 58.1 ml/min; Est GFR (African American) 61.8; Est GFR (Non-African American) 53.3; Potassium 4.4 mmol/L (3.5-5.1)
[2019-09-24] MEDS: OXYCODONE/ACETAMINOPHEN 10-325 TAB PO PRN (15:15)
[2019-09-24] MEDS: TRAZODONE HCL 100 MG TAB PO SCH (21:06)
[2019-09-24] MEDS: SIMVASTATIN 20 MG TAB PO SCH (21:07)
--- NOTE | 2019-09-24 23:17 | Hospitalist Progress Note ---
Date of Service September 24, 2019 Assessment & Plan (1) Influenza A: Continue Tamiflu, pharmacy renally dosing. appears to be improving. Patient will remain on nebs. she is feeling better, her wheezing has improved, but she continues to require supplemental oxygen. This is not her norm. will closely monitor her. Will hold discharge for another day. BNP was lower than on admission. (2) COPD exacerbation: Given her diabetes will try to minimize steroid use if at all possible, fortunately the wheezing from the past 2 days have improved. No steorids today. Appears influenza with COPD are the main reasons for her hypoxia. DuoNebs 4 times daily/every 2 as needed, follow (3) Left lower lobe pneumonia: initially on doxy/ceftriaxone. MRSA nares was negative so doxy changed to zithromax just for pulmonary antiinflammatory effect. procal repeatedly negative and 2 days of clinical evals c/w flu/COPD and not w pneumonia - stop ceftriaxone and follow. however, after further review, doubt she ever truly had secondary pneumonia (obviously continue to follow since this year's flu has had a surprising amount of post-flu associated pneumonias) (4) DVT (deep venous thrombosis): Monitor PT/INR daily (5) Pulmonary embolism: As above, coumadin, follow INR (6) Diabetes: A1c fairly respectable at 7.3% so baseline control reasonable. currently continues to run a little high - titrate insulins (today tighten carb ratio to balance out closer to 50/50 between basal and bolus) Continue fingersticks and basal bolus insulin management. (7) Hypertension: Numbers reasonable given the situation. Continue current medications (8) Depression: Continue sertraline 50 mg p.o. daily. Continue Seroquel 200 mg p.o. daily Continue lorazepam 0.5 mg p.o. 3 times daily as needed for anxiety and agitation. (Follow respiratory status) Continue fluvoxamine 100 mg p.o. twice daily. (9) GERD (gastroesophageal reflux disease): No complaints of this todaycontinue omeprazole 20 mg p.o. twice daily. (10) Chronic lower back pain: No complaints of this todaycontinue pregabalin 50 mg p.o. 3 times daily, trazodone 100 mg p.o. nightly does not show need for ortho consult - dc'd. (11) Constipation, acute: Continue Colace, follow. (12) Osteoporosis: Continue calcium carbonate vitamin D3 1 tablet p.o. 3 times daily. (13) Hyponatremia: Likely related to flu/acute pulmonary illness, likely changes in p.o. intake. Continue to follow. (14) Chest pain: Seems to have at least 2 different chest pain syndromes1 of which seems to be predominantly related to her flu/bronchitis, the other is a bit more concerning for angina. That said, she has no ongoing pain that is constant, she was being routinely worked up for this as an outpatient, and her current troponin is negative. Follow clinically, continue medications for secondary risk reduction, but no need for acute intervention at this time. 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 (15) Discharge planning issues: PT/OT eval and treat ongoing - but appears likely that pt will be able to return home (?may need O2 for a short time) on discharge. Admission and Anticipated Discharge Date Admission Date: September 19, 2019 Subjective 69 yo female reports feeling mildly better from yesterday but still short of breath. She does not feel well enough to go home. She is having a productive cough. Review of Systems Review of Systems: All systems reviewed & are unremarkable except as noted in HPI & below Physical Exam Physical Exam: Constitutional: WD/WN, vitals as above well developed and + ill appearing Eyes: PERRL, conjunctivae normal, anicteric sclerae ENMT: external ear and nose normal, oropharynx normal Neck: trachea midline, no thyromegaly Respiratory: no longer tachypnic, decreased breath sounds, with expiratory wheezing Cardiovascular: RRR, no murmur, no edema Gastrointestinal (Abdomen): bowel sounds (+), soft, nontender, no hepatosplenomegaly Musculoskeletal: no cyanosis or clubbing, extremities motor strength 5/5 Skin: no rashes, warm and dry Neurologic: patellar DTR's 2+ bilat, sensation intact Psychiatric: A+Ox3, euthymic affect Lymphatic: no cervical or axillary lymphadenopathy Results & Data ([facility]) Vital Signs (Past 12 Hours) Vital Signs Temp Pulse Resp BP BP Pulse Ox 09/24/19 21:00 68 123/64 91 09/24/19 19:32 71 18 97 09/24/19 15:09 37.1 C 68 20 115/63 94 09/24/19 13:19 71 18 96 PG Care Time/CCT Total # of Minutes Spent Total Time Spent with Patient: Total time spent is greater than 50% in coordination of care (as documented) at patient's floor/unit and/or counseling patient: Coding Level of Care Code 64909 Subseq Hosp Care Lvl 2 Diagnoses Influenza A J10.1 COPD exacerbation J44.1 Left lower lobe pneumonia J11.00 Pneumonia type: due to influenza A virus DVT (deep venous thrombosis) I82.409 Pulmonary embolism I26.99 Diabetes E11.9 Hypertension I10 Depression F32.9 GERD (gastroesophageal reflux disease) K21.9 Chronic lower back pain M54.5; G89.29 Constipation, acute K59.00 Osteoporosis M81.0 Hyponatremia E87.1 Chest pain R07.9 Discharge planning issues Z02.9 Time Spent (min) 25 (1) Left lower lobe pneumonia Pneumonia type: due to influenza A virus Qualified Code(s): J11.00 - Influenza due to unidentified influenza virus with unspecified type of pneumonia
[2019-09-25] MEDS: LEVALBUTEROL HCL 1.25 MG/3 ML NEB NEB SCH ×4 (01:08→18:53)
[2019-09-25] MEDS: LEVOTHYROXINE SODIUM 50 MCG TABLET PO SCH (05:48)
[2019-09-25] MEDS: FLUTICASONE/VILANTEROL 100/25MCG 14 PUFFS/INHALER INH SCH (08:08)
[2019-09-25] MEDS: POTASSIUM CHLORIDE 20 MEQ TABCR PO SCH ×3 (08:08→18:00)
[2019-09-25] MEDS: MAGNESIUM OXIDE 400 MG TAB PO SCH ×4 (08:09→20:40)
[2019-09-25] MEDS: CALCIUM 600MG + VIT D 400 IU TAB PO SCH ×3 (08:09→20:41)
[2019-09-25] MEDS: TORSEMIDE 20 MG TAB PO SCH (08:09)
[2019-09-25] MEDS: PREGABALIN 50 MG CAP PO SCH ×3 (08:09→20:41)
[2019-09-25] MEDS: FLUVOXAMINE MALEATE 50 MG TAB PO SCH ×2 (08:09→20:40)
[2019-09-25] MEDS: carvediloL 25 MG TAB PO SCH ×2 (08:09→20:41)
[2019-09-25] MEDS: PANTOprazole 40 MG TAB PO SCH ×2 (08:10→20:42)
[2019-09-25] MEDS: QUETIAPINE FUMARATE 200 MG TAB PO SCH (08:10)
[2019-09-25] MEDS: CYANOCOBALAMIN 500 MCG TABLET (VITAMIN B-12) PO SCH (08:10)
[2019-09-25] MEDS: SERTRALINE HCL 50 MG TABLET PO SCH (08:10)
[2019-09-25] MEDS: AZITHROMYCIN 250 MG TAB PO SCH (08:10)
[2019-09-25] MEDS: INSULIN GLARGINE SOLOSTAR 100 UNITS/ML 3 ML PEN SC SCH ×2 (08:23→20:49)
[2019-09-25] MEDS: OXYCODONE/ACETAMINOPHEN 10-325 TAB PO PRN (08:24)
[2019-09-25] MEDS: INSULIN ASPART 100 UNITS/ML 3 ML PEN SC SCH ×4 (08:24→20:50)
[2019-09-25] MEDS: SIMVASTATIN 20 MG TAB PO SCH (20:40)
[2019-09-25] MEDS: TRAZODONE HCL 100 MG TAB PO SCH (20:41)
--- NOTE | 2019-09-25 22:18 | Hospitalist Progress Note ---
Date of Service September 25, 2019 Assessment & Plan (1) Influenza A: Continue Tamiflu, pharmacy renally dosing. appears to be improving. Patient will remain on nebs, this will be scheduled. Patient though is better than when she first came in, and no longer on oxygen. This was just turned off earlier today. Patient though does not feel comfortable being discharged. Will obtain PT/OT to reassess disposition and will obtain a two step for discharge. BNP was lower than on admission. (2) COPD exacerbation: Given her diabetes will try to minimize steroid use if at all possible, fortunately the wheezing from the past 2 days have improved. No steorids today. Appears influenza with COPD are the main reasons for her hypoxia. DuoNebs 4 times daily/every 2 as needed, follow (3) Left lower lobe pneumonia: initially on doxy/ceftriaxone. MRSA nares was negative so doxy changed to zithromax just for pulmonary antiinflammatory effect. procal repeatedly negative and 2 days of clinical evals c/w flu/COPD and not w pneumonia - stop ceftriaxone and follow. however, after further review, doubt she ever truly had secondary pneumonia (obviously continue to follow since this year's flu has had a surprising amount of post-flu associated pneumonias) (4) DVT (deep venous thrombosis): Monitor PT/INR daily (5) Pulmonary embolism: As above, coumadin, follow INR (6) Diabetes: A1c fairly respectable at 7.3% so baseline control reasonable. currently continues to run a little high - titrate insulins Blood sugar appears better controlled today. Continue fingersticks and basal bolus insulin management. (7) Hypertension: Numbers reasonable given the situation. Continue current medications (8) Depression: Continue sertraline 50 mg p.o. daily. Continue Seroquel 200 mg p.o. daily Continue lorazepam 0.5 mg p.o. 3 times daily as needed for anxiety and agitation. (Follow respiratory status) Continue fluvoxamine 100 mg p.o. twice daily. (9) GERD (gastroesophageal reflux disease): No complaints of this todaycontinue omeprazole 20 mg p.o. twice daily. (10) Chronic lower back pain: No complaints of this todaycontinue pregabalin 50 mg p.o. 3 times daily, trazodone 100 mg p.o. nightly does not show need for ortho consult - dc'd. (11) Constipation, acute: Continue Colace, follow. (12) Osteoporosis: Continue calcium carbonate vitamin D3 1 tablet p.o. 3 times daily. (13) Hyponatremia: Likely related to flu/acute pulmonary illness, likely changes in p.o. intake. Continue to follow. (14) Chest pain: Seems to have at least 2 different chest pain syndromes1 of which seems to be predominantly related to her flu/bronchitis, the other is a bit more concerning for angina. That said, she has no ongoing pain that is constant, she was being routinely worked up for this as an outpatient, and her current troponin is negative. Follow clinically, continue medications for secondary risk reduction, but no need for acute intervention at this time. 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 (15) Discharge planning issues: PT/OT eval and treat ongoing Admission and Anticipated Discharge Date Admission Date: September 19, 2019 Subjective Patient reports that she still does not feel better today. She states she continues to be coughing. She states she is also SOB. Review of Systems Review of Systems: All systems reviewed & are unremarkable except as noted in HPI & below Physical Exam Physical Exam: Constitutional: WD/WN, vitals as above well developed and + ill appearing Eyes: PERRL, conjunctivae normal, anicteric sclerae ENMT: external ear and nose normal, oropharynx normal Neck: trachea midline, no thyromegaly Respiratory: no longer tachypnic, decreased breath sounds, with expiratory wheezing Cardiovascular: RRR, no murmur, no edema Gastrointestinal (Abdomen): bowel sounds (+), soft, nontender, no hepatosplenomegaly Musculoskeletal: no cyanosis or clubbing, extremities motor strength 5/5 Skin: no rashes, warm and dry Neurologic: patellar DTR's 2+ bilat, sensation intact Psychiatric: A+Ox3, euthymic affect Lymphatic: no cervical or axillary lymphadenopathy Results & Data ([facility]) Vital Signs (Past 12 Hours) Vital Signs Temp Pulse Resp BP BP Pulse Ox 09/25/19 20:34 65 133/77 09/25/19 18:53 65 14 94 09/25/19 15:09 36.7 C 65 19 118/75 90 09/25/19 13:29 62 18 91 PG Care Time/CCT Total # of Minutes Spent Total Time Spent with Patient: Total time spent is greater than 50% in coordination of care (as documented) at patient's floor/unit and/or counseling patient: Coding Level of Care Code 20574 Subseq Hosp Care Lvl 3 Diagnoses Influenza A J10.1 COPD exacerbation J44.1 Left lower lobe pneumonia J11.00 Pneumonia type: due to influenza A virus DVT (deep venous thrombosis) I82.409 Pulmonary embolism I26.99 Diabetes E11.9 Hypertension I10 Depression F32.9 GERD (gastroesophageal reflux disease) K21.9 Chronic lower back pain M54.5; G89.29 Constipation, acute K59.00 Osteoporosis M81.0 Hyponatremia E87.1 Chest pain R07.9 Discharge planning issues Z02.9 Time Spent (min) 35 (1) Left lower lobe pneumonia Pneumonia type: due to influenza A virus Qualified Code(s): J11.00 - Influenza due to unidentified influenza virus with unspecified type of pneumonia
[2019-09-26] MEDS: LEVALBUTEROL HCL 1.25 MG/3 ML NEB NEB SCH ×2 (00:53→07:53)
[2019-09-26] MEDS: LEVOTHYROXINE SODIUM 50 MCG TABLET PO SCH (06:39)
[2019-09-26] MEDS: POTASSIUM CHLORIDE 20 MEQ TABCR PO SCH (08:04)
[2019-09-26] MEDS: FLUTICASONE/VILANTEROL 100/25MCG 14 PUFFS/INHALER INH SCH (08:05)
[2019-09-26] MEDS: CALCIUM 600MG + VIT D 400 IU TAB PO SCH ×2 (08:05→12:35)
[2019-09-26] MEDS: carvediloL 25 MG TAB PO SCH (08:05)
[2019-09-26] MEDS: FLUVOXAMINE MALEATE 50 MG TAB PO SCH (08:06)
[2019-09-26] MEDS: QUETIAPINE FUMARATE 200 MG TAB PO SCH (08:06)
[2019-09-26] MEDS: PREGABALIN 50 MG CAP PO SCH ×2 (08:06→13:41)
[2019-09-26] MEDS: MAGNESIUM OXIDE 400 MG TAB PO SCH ×2 (08:06→12:34)
[2019-09-26] MEDS: TORSEMIDE 20 MG TAB PO SCH (08:06)
[2019-09-26] MEDS: PANTOprazole 40 MG TAB PO SCH (08:06)
[2019-09-26] MEDS: AZITHROMYCIN 250 MG TAB PO SCH (08:07)
[2019-09-26] MEDS: CYANOCOBALAMIN 500 MCG TABLET (VITAMIN B-12) PO SCH (08:07)
[2019-09-26] MEDS: SERTRALINE HCL 50 MG TABLET PO SCH (08:07)
[2019-09-26] MEDS: INSULIN GLARGINE SOLOSTAR 100 UNITS/ML 3 ML PEN SC SCH (08:34)
[2019-09-26] MEDS: INSULIN ASPART 100 UNITS/ML 3 ML PEN SC SCH ×2 (08:34→12:33)
[2019-09-26] MEDS ORDERED: LEVALBUTEROL HCL 1.25 MG/3 ML NEB NEB PRN (12:20)
[2019-09-26] MEDS ORDERED: PHARMACY GLYCEMIC MGMT CONSULT PRN (12:25)
[2019-09-26] MEDS ORDERED: WARFARIN SOD 5 MG TAB PO ONE (12:30)
--- NOTE | 2019-09-26 12:37 | Pharmacy Report ---
Glycemic Control Consultation - Date of Service September 26, 2019 - Scope Scope: Glycemic Pharmacist consulted for glycemic control and to write orders per [facility] inpatient glycemic control protocol. - Objective Weight: 111.1 kg [place] BSG (last 24hrs): 09/25/19 09/25/19 09/26/19 17:06 19:45 07:36 POC Glucose 80 126 H 112 H 09/26/19 11:37 POC Glucose 286 H HbA1c: Hemoglobin A1c 7.3 % (4.5-5.6) H 09/20/19 05:21 - Recent Pertinent Medications Outpatient Anti-diabetic Regimen: * Lantus 40 units BID, metformin 500 bidm, glipizide 5 mg bid * A1c = 7.3 % 09/20/19 Risk Factors for Insulin Resistance: * Diet: T2DM - Assessment & Plan Assessment & Plan: ASSESSMENT: * 69 year old female with influenza A/COPD exacerbation. Type 2 diabetic managed on Lantus and oral agents at home. * Pharmacy consulted for glycemic management. Provider has been limiting steroids given diabetes. No steroids ordered currently * Patient requiring 84 units of insulin over last 24 hrs - of which 46 were basal insulin * BSGs have been fairly well controlled, however lunch time BSG tends to be elevated. All other BSGs throughout the day w/in range * BSGs tend to drop after lunch - therefore will continue same CF/CR for now. Possibly consider tighter CR with breakfast tomorrow to help with elevated BSGs at lunch PLAN FOR INPATIENT GLYCEMIC CONTROL: * Holding outpatient oral diabetes medications * Basal insulin * Lantus 23 units BID - continue same * Bolus insulin * NovoLog per scale ACHS or Q6hrs while NPO * Goal Range: Low 140 mg/dL - High 180 mg/dL * Correction Factor: 20 mg/dL/unit * Nutritional / Prandial insulin per carb ratio of 1 unit per 4 grams CHO consumed * Please note that the plan above was derived based on current level of insulin resistance and hospital stress. These recommendations are appropriate for inpatient admission only. Plan of care upon discharge will need to be reassessed to avoid potential outpatient hypo/hyperglycemia. Thank you.
[2019-09-26 13:17] LABS: INR 1.3 (0.9-1.1); Prothrombin Time 13.2 Seconds (9.0-12.0)
[2019-09-26 13:29] LABS: BUN Creatinine Ratio 13.5 (10-20); Calcium 8.9 mg/dl (8.5-10.1); Creatinine Clr Calc Pharmacy 48.9 ml/min; Est GFR (African American) 50.2; Est GFR (Non-African American) 43.3; Potassium 4.4 mmol/L (3.5-5.1)
[2019-09-26] MEDS ORDERED: WARFARIN SOD 2 MG TAB PO ONE (13:39)
[2019-09-26] MEDS ORDERED: POTASSIUM CHLORIDE 20 MEQ TABCR PO SCH (14:00)
--- NOTE | 2019-10-03 00:35 | Discharge Summary ---
Date of Service September 26, 2019 Admission HPI Per Admitting Provider The patient is a 69 years old female with past medical history of deep venous thrombosis and pulmonary embolism on warfarin, diabetes mellitus type 2, hypertension, COPD who was brought to the emergency room by EMS with a complaint of an episode of a fall beginning this morning. Patient fell out of that and her right knee hurts. The patient reports neck pain and headache. Patient is taking Coumadin for DVT and pulmonary embolism. Patient reports wheezes and shortness of breath. Patient intermittently uses oxygen at home for COPD. Now patient feels that she needs oxygen 24/7. Patient also has dry cough which is irritating her. Patient reports that she did not take anything for her shortness of breath and wheezes except for her regular medication which did not give her relief. Patient reports subjective fever. Patient denies headache, chills, chest pain, abdominal pain, frequency, urgency, syncope, near syncope. Patient denies recent travel or sick contact. Labs are reviewed: WBC 7.3, hemoglobin 12, hematocrit 36.4, platelets 158, PT 20.3, INR 2. PTT ratio 1.5, VBG pH 7.43, PCO2 246, PO2 60, HCO3 30, O2 saturation 90, VBG base excess 4.6, sodium 134, potassium 4.7, chloride 98, carbon dioxide 30, anion gap 5, BUN 19, creatinine 1.24 and baseline since 2018 is 1.37, GFR 44.6, glucose 71, calcium 8.2, magnesium 1.8, AST 53, ALT 39, alkaline phosphatase 62, troponin 0.015, total protein 7.4, albumin 3.3, globulin 4.1, albumin globulin ratio 0.8, TSH pending, influenza A is positive and influenza B is negative. Chest x-ray shows questionable mild left upper lobe consolidation. The pulmonary vasculature is non-congested. Chronic interstitial thickening is similar to previous studies in April 09, [address] of the chest done August 26, 2017. Mild congestive change is suggested in the left upper lobe. No large pleural effusion is identified. No pneumothorax is seen. The skeletal structures are osteopenic. Degenerative change and chronic posttraumatic deformities is s uggested in the left proximal humerus. CT scan of the head shows no acute abnormalities. Cervical spine shows no evidence of fracture or subluxation involving the cervical spine. Osteopenia and spondylotic change and moderate disc space narrowing in C5-C6, C6-C7.posterior osteophytes complexes C5-C6 and C6-C7 likely contributed to acquired compromise of the central canal. The decision was made to admit patient to PCU on telemetry for pneumonia and influenza A. Principal Diagnosis Influenza A infection with COPD Discharge Exam Constitutional: WD/WN, vitals as above well developed Eyes: PERRL, conjunctivae normal, anicteric sclerae ENMT: external ear and nose normal, oropharynx normal Neck: trachea midline, no thyromegaly Respiratory: no longer tachypnic, decreased breath sounds, with no expiratory wheezing Cardiovascular: RRR, no murmur, no edema Gastrointestinal (Abdomen): bowel sounds (+), soft, nontender, no hepatosplenomegaly Musculoskeletal: no cyanosis or clubbing, extremities motor strength 5/5 Skin: no rashes, warm and dry Neurologic: patellar DTR's 2+ bilat, sensation intact Psychiatric: A+Ox3, euthymic affect Lymphatic: no cervical or axillary lymphadenopathy Discharge Data Allergies Allergy/AdvReac Type Severity Reaction Status Date / Time erythromycin base AdvReac Intermediate N/V Verified 09/19/19 16:42 Consultations 09/19/19 16:40 ED Decision to Admit Stat Ordered Studies 09/19/19 14:59 CT head/brain wo con Stat 09/19/19 15:57 CT cervical spine wo con Stat Hospital Course (1) Influenza A: Completed Tamiflu, pharmacy renally dosing. appears to have improved Patient was treated on scheduled nebs. She initially required oxygen but on day of discharge, she passed the two step. BNP was lower than on admission. (2) COPD exacerbation: Given her diabetes will try to minimize steroid use if at all possible, wheezing though lasted for majority of hospital stay. Appears influenza with COPD are the main reasons for her hypoxia. (3) Left lower lobe pneumonia: initially on doxy/ceftriaxone. MRSA nares was negative so doxy changed to zithromax just for pulmonary antiinflammatory effect. procal repeatedly negative and 2 days of clinical evals c/w flu/COPD and not w pneumonia - stop ceftriaxone and follow. however, after further review, doubt she ever truly had secondary pneumonia (obviously continue to follow since this year's flu has had a surprising amount of post-flu associated pneumonias) (4) DVT (deep venous thrombosis): Monitor PT/INR daily (5) Pulmonary embolism: As above, coumadin, follow INR will resume INR check in 5 days, as she was supratherapuetic, but then it became subtherapeutic when held. (6) Diabetes: A1c fairly respectable at 7.3% so baseline control reasonable. currently continues to run a little high - titrate insulins Blood sugar appears better controlled today. Continue fingersticks and basal bolus insulin management. On discharge, will resume home regimen. (7) Hypertension: Numbers reasonable given the situation. Continue current medications (8) Depression: Continue sertraline 50 mg p.o. daily. Continue Seroquel 200 mg p.o. daily Continue lorazepam 0.5 mg p.o. 3 times daily as needed for anxiety and agitation. (Follow respiratory status) Continue fluvoxamine 100 mg p.o. twice daily. (9) GERD (gastroesophageal reflux disease): No complaints of this todaycontinue omeprazole 20 mg p.o. twice daily. (10) Chronic lower back pain: No complaints of this todaycontinue pregabalin 50 mg p.o. 3 times daily, trazodone 100 mg p.o. nightly does not show need for ortho consult - dc'd. (11) Constipation, acute: Continue Colace, follow. (12) Osteoporosis: Continue calcium carbonate vitamin D3 1 tablet p.o. 3 times daily. (13) Hyponatremia: Likely related to flu/acute pulmonary illness, likely changes in p.o. intake. Continue to follow. (14) Chest pain: Seems to have at least 2 different chest pain syndromes1 of which seems to be predominantly related to her flu/bronchitis, the other is a bit more concerning for angina. That said, she has no ongoing pain that is constant, she was being routinely worked up for this as an outpatient, and her current troponin is negative. Follow clinically, continue medications for secondary risk reduction, but no need for acute intervention at this time. 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 (15) Discharge planning issues: Total Time Total Time Spent Total Time Spent (In Minutes): 35 Total Time Includes: Examination of the Patient, Discharge Planning and Medication Reconciliation Discharge Plan Discharge Items Patient Disposition: Home - Home Health Services Reason For Visit: PNA, INFLUENZA A Discharge Diagnosis: Influenza A Activity: Resume your previous activity Non-emergency contact: Primary Care Provider Call non-emergency contact if: you have any medication questions Follow-up/Referrals: Noni Allan MD [Primary Care Provider] - (We will call Friday morning to let you know time and date of your follow up appointment) Diet: Carb Consistent or DM2 and Heart Healthy Addtl Attending Provider Instructions: Resume home medications, including home regimen of your diabetic medications. Will recommend checking INR in about 5 days ( or Friday). Start Warfarin cycle tomorrow friday with 7 mg of coumadin. Recommend followup with your PCP. You have been hospitalized for an acute medical problem: the flu. During your stay at [facility], we have made an effort to correct the problem that brought you to the hospital while keeping you as comfortable as possible. Medications were used to bring your condition under control and your discharge instructions will include directions for any medications you should take after leaving the hospital. Please make sure you see your Primary Care Provider as part of your follow up plan. Pending Studies at Discharge: No Stand-Alone Forms: My [facility], Smoking Cessation Medications and DC Order Prescriptions: Continued metformin 500 mg Tablet 500 mg PO BIDM RF: 0 cyanocobalamin (vitamin B-12) [Vitamin B-12] 1,000 mcg Tablet 1,000 mcg PO DAILY RF: 0 lorazepam 0.5 mg Tablet 0.5 mg PO TID PRN (Reason: Anxiety) RF: 0 oxycodone-acetaminophen 10-325 mg Tablet 1 tab PO Q4H PRN (Reason: Pain) RF: 0 simvastatin 20 mg Tablet 20 mg PO PM RF: 0 warfarin [Coumadin] 2 mg Tablet 2 mg PO Q OTHER DAY RF: 0 warfarin [Coumadin] 5 mg Tablet 5 mg PO DAILY RF: 0 omeprazole 20 mg Capsule,Delayed Release(Dr/Ec) 20 mg PO BID RF: 0 albuterol sulfate [Ventolin HFA] 90 mcg/actuation Hfa Aerosol Inhaler 2 puff INHALATION DAILY PRN (Reason: Shortness Of Breath) RF: 0 docusate sodium 100 mg Tablet 100 mg PO BID PRN (Reason: Constipation) RF: 0 glipizide 5 mg Tablet 5 mg PO BID RF: 0 calcium carbonate-vitamin D3 [Os-Federico 500 + D3] 500 mg(1,250mg) -200 unit Tablet 1 tab PO TID RF: 0 pregabalin 50 mg Capsule 50 mg PO TID RF: 0 budesonide-formoterol [Symbicort] 80-4.5 mcg/actuation Hfa Aerosol Inhaler 2 puff INHALATION BID RF: 0 magnesium oxide 400 mg Capsule 400 mg PO QID RF: 0 potassium chloride 20 mEq Tablet Extended Release 20 meq PO TID RF: 0 quetiapine 200 mg tablet 200 mg PO DAILY RF: 0 carvedilol 25 mg tablet 25 mg PO BID RF: 0 trazodone 50 mg tablet 100 mg PO HS RF: 0 levothyroxine 50 mcg tablet 50 mcg PO QAM RF: 0 sertraline 50 mg tablet 50 mg PO DAILY RF: 0 torsemide 20 mg tablet 20 mg PO DAILY RF: 0 fluvoxamine 100 mg tablet 100 mg PO BID RF: 0 Lantus U-100 Insulin 100 unit/mL solution 40 unit SUBCUT BID RF: 0 Discharge Orders: Discharge Order (Routine); Ordered 09/26/19 Ordered By: Tony Bravo Admission Data Admit Date/Time: 09/19/19 17:40 Attending Provider: Tony Bravo Admit Provider: Sanjiv Coombs Primary Care Provider: Noni Allan Other Providers: Sanjiv Coombs Other Interventions: Discharge Summary Assessment (RN) Last Done: 09/26/19 13:00 DC Date/Time DO NOT enter until pt leaves facility: 09/26/19 14:34 Coding Level of Care Code D/C Day Management >30 mins Diagnoses Influenza A J10.1 COPD exacerbation J44.1 Left lower lobe pneumonia J11.00 Pneumonia type: due to influenza A virus DVT (deep venous thrombosis) I82.409 Pulmonary embolism I26.99 Diabetes E11.9 Hypertension I10 Depression F32.9 GERD (gastroesophageal reflux disease) K21.9 Chronic lower back pain M54.5; G89.29 Constipation, acute K59.00 Osteoporosis M81.0 Hyponatremia E87.1 Chest pain R07.9 Discharge planning issues Z02.9
== END 2019-09-26 14:34 | disposition home health service (06) | DRG 193 ==
LOC: ED 14:31 → SUATTDRO 17:40 → 2E 17:40 → 4W 09-21 13:30